=== PATIENT | female | born 1950 | race Caucasian/White ===

== ENCOUNTER 2022-05-03 14:49 | Observation (INO) | payer MEDICARE, OTHER ==
[2022-05-03] MEDS ORDERED: TYLENOL 325 MG PO ONE (15:20)
[2022-05-03] MEDS ORDERED: Hydromorphone 1 mg/ml Injection IV ONE (15:20)
[2022-05-03] MEDS ORDERED: Sodium Chloride 0.9% 1000 ML 1,000 ML IV STA (15:20)
[2022-05-03] MEDS ORDERED: Zofran 4 MG/2 ML VIAL IV ONE (15:20)
--- NOTE | 2022-05-03 15:20 | ERPHSYRPT ---
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 Triage Nursing Assessment: Pt brought to the ER by her , febrile, rates right flank pain as 5/10, diabetic, urinates all the time and denies any pain with it, denies radiation of the flank pain, fever waking her at night, tries to lay flat due to some relief, states that this is some of the worse pain she has ever had, no edema noted, pt fell during the night last night and states that she thinks she was disoriented and hit the chair and it pushed her back and she fell causing a skin tear or rug burn to her left elbow and denies hitting her h ead of having LOC, pt doesn't appear to be in any distress Timing/Duration: day(s) (4), worse Fever Severity: moderate Fever Therapy CONE FORMER: none Associated Symptoms: denies symptoms, No abdominal pain, No chest pain, No confusion Hx Tetanus, Diphtheria Vaccination/Date Given: Yes (UP TO DATE) Hx Influenza Vaccination/Date Given: Yes Hx Pneumococcal Vaccination/Date Given: Yes <ENRRIQUE PICKARD - Last Filed: 05/03/22 15:35> <CHERYL ANGELA - Last Filed: 05/03/22 16:59> - History of Present Illness Time Seen by Provider: 05/03/22 15:10 Physician History: This is a morbidly obese 72-year-old white female patient of Dr. Angela who had left arm pain and nonradiating central substernal chest pain 4 days ago. She took a nitroglycerin tablet and it resolved this pain. She has no more chest pain. On the same day, patient noticed right flank pain and that has persisted over the last 4 days. She is also had associated fevers at home. The pain in her right flank is constant. It is sharp. She has no abdominal pain. The pain improves mildly with laying flat. Patient does have a history of polycystic ovary disease. Upon entrance into the emergency department, her temperature is 101.9 F. Patient has a history of hypertension, gastroesophageal reflux disease, diabetes, hyperlipidemia, TIAs and coronary artery disease. (ENRRIQUE PICKARD) Allergies/Adverse Reactions: Penicillins Allergy (Verified 05/03/22 15:17) Home Medications: Clopidogrel Bisulfate [PLAVIX 75 MG Tablet] 75 mg PO DAILY 12/10/15 [History] Fluoxetine HCl 20 tab PO DAILY 12/10/15 [History] Paricalcitol [Zemplar] 1 mcg PO DAILY 12/10/15 [History] Spironolactone 25 tab PO BID 12/10/15 [History] Tolterodine Tartrate [Detrol LA] 4 tab PO DAILY 12/10/15 [History] Amlodipine Besylate 5 mg PO DAILY 06/10/17 [History] Aspirin [Aspirin EC] 81 mg PO DAILY 06/10/17 [History] Atorvastatin Calcium [Lipitor] 80 mg PO DAILY 06/10/17 [History] Buspirone HCl [Buspar] 10 mg PO BID 06/10/17 [History] Furosemide 20 mg [Lasix 20 mg] 20 mg PO DAILY 06/10/17 [History] Lansoprazole 30 mg PO DAILY 06/10/17 [History] Metoprolol Tartrate 50 mg PO BID 06/10/17 [History] Allopurinol 300 mg [Zyloprim 300 mg] 300 mg PO DAILY 05/03/22 [History] Ezetimibe 10 mg [Zetia 10 MG] 10 mg PO DAILY 05/03/22 [History] Gabapentin [Neurontin ] 100 mg PO DAILY 05/03/22 [History] Travel Risk - International Travel Have you traveled outside of the country in past 3 weeks: No - Coronavirus Screening Are you exhibiting any of the following symptoms?: Yes Symptoms: Fever Close contact with a COVID-19 positive Pt in past 14-21 Days: No - Vaccine Status Have you recieved a Covid-19 vaccination: Yes 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: [employer] - Vaccination Dates Date of 2cond Vaccination (if applicable): 2020 <ENRRIQUE PICKARD - Last Filed: 05/03/22 15:35> - Review of Systems Constitutional: Fever Eyes: No Symptoms Ears, Nose, & Throat: No Symptoms Respiratory: No Symptoms Cardiac: No Symptoms Abdominal/Gastrointestinal: No Symptoms Genitourinary Symptoms: Flank Pain (Right flank pain) Musculoskeletal: No Symptoms Skin: No Symptoms Neurological: No Symptoms Psychological: No Symptoms Endocrine: No Symptoms Hematologic/Lymphatic: No Symptoms Immunological/Allergic: No Symptoms All Other Systems: Reviewed and Negative <ENRRIQUE PICKARD - Last Filed: 05/03/22 15:35> - Past Medical History Pertinent Past Medical History: Yes Neurological History: TIA Cardiac History: Coronary Artery Disease, Hypertension Respiratory History: No Pertinent History Endocrine Medical History: No Pertinent History Musculoskeletal History: Osteoarthritis Other Medical History: POLCYSTIC KIDNEY DISEASE - Past Surgical History Past Surgical History: Yes Cardiac: CABG Musculoskeletal: Other Female Surgical History: Hysterectomy Other Surgical History: left/right knee replacements - Social History Smoking Status: Never smoker Exposure to second hand smoke: No Drug Use: none Patient Lives Alone: No <ENRRIQUE PICKARD - Last Filed: 05/03/22 15:35> - Physical Exam General Appearance: no apparent distress, alert, anxiety, obese Eye Exam: PERRL/EOMI, eyes nml inspection ENT Exam: normal ENT inspection, no apparent trauma, hearing grossly normal, TMs normal Neck Exam: normal inspection, non-tender, supple, full range of motion Respiratory Exam: normal breath sounds, lungs clear, no respiratory distress, no accessory muscle use, No chest non-tender, No decreased breath sounds, No respir atory distress Cardiovascular/Chest Exam: normal heart sounds, regular rate/rhythm Gastrointestinal/Abdominal Exam: soft, non tender, no distention, no mass, no guarding, no ecchymosis, no organomegaly, no pulsatile mass, normal bowel sounds Pelvic Exam: not done Rectal Exam: not done Extremity Exam: non-tender, normal range of motion, normal inspection Neurologic Exam: alert, oriented x 3, cooperative, superintendent track II-XII nml as tested, normal mood/affect, nml cerebellar function, nml station & gait, sensation nml Skin Exam: normal color, warm, dry Lymphatic: No adenopathy SpO2 Interpretation: normal SpO2: 96 O2 Delivery: Room Air <ENRRIQUE PICKARD - Last Filed: 05/03/22 15:35> - Nursing Vital Signs Nursing Vital Signs: Initial Vital Signs Temperature 101.9 F 05/03/22 14:56 Pulse Rate 82 05/03/22 14:56 Blood Pressure 133/79 05/03/22 14:56 O2 Sat by Pulse Oximetry 96 05/03/22 14:56 Pain Scale Pain Intensity 5 - Course Nursing assessment & vital signs reviewed: Yes <ENRRIQUE PICKARD - Last Filed: 05/03/22 15:35> - Radiology Exams Chest X-ray Interpretation: Reviewed by me (cardiomegaly) <CHERYL ANGELA - Last Filed: 05/03/22 16:59> Ordered Tests: Active Orders 24 hr Category Date Time Status Bedrest with BRP/BSC ROUTINE Activity 05/03/22 16:54 Ordered Code Status Order ROUTINE Care 05/03/22 16:54 Ordered EKG-ER Only STAT Care 05/03/22 15:20 Active Fall Protocol ROUTINE Care 05/03/22 16:55 Ordered IV Care Q6H Care 05/03/22 16:54 Ordered IV Insertion STAT Care 05/03/22 15:20 Active Implement Chest Pain Pathway ROUTINE Care 05/03/22 16:54 Ordered Miscellaneous Nursing Order ROUTINE Care 05/03/22 16:54 Ordered POCT Glucose Check ACHS Care 05/03/22 16:[address] in Observation ROUTINE Care 05/03/22 16:54 Ordered Shelton Hose, Apply ROUTINE Care 05/03/22 16:54 Ordered Weight,Daily 0600 Care 05/03/22 16:54 Ordered Heart-Healthy Diet Diet 05/03/22 Dinner Ordered ABDOMEN AND PELVIS W/0 CONTRAS [CT] Stat Exams 05/03/22 15:20 Completed CHEST 1 VIEW (PORTABLE) Stat Exams 05/03/22 15:21 Completed AMYLASE Stat Lab 05/03/22 15:40 Completed BLOOD CULTURE Stat Lab 05/03/22 15:40 Received CBC W DIFF Stat Lab 05/03/22 15:40 Completed CMP Stat Lab 05/03/22 15:40 Completed CULTURE,URINE Stat Lab 05/03/22 Received LIPASE Stat Lab 05/03/22 15:40 Completed LIPID PROFILE AM.LAB Lab 05/04/22 04:00 Ordered Lactic Acid Stat Lab 05/03/22 15:20 Ordered Bell Screen Stat Lab 05/03/22 15:40 Received TROPONIN Q4H Lab 05/03/22 15:30 Completed TROPONIN Q4H Lab 05/03/22 17:00 Ordered TROPONIN Q4H Lab 05/03/22 19:30 Ordered TROPONIN Q4H Lab 05/03/22 21:00 Ordered TROPONIN Q4H Lab 05/03/22 23:30 Ordered TROPONIN Q4H Lab 05/04/22 01:00 Ordered UA W/RFX CULTURE Stat Lab 05/03/22 Completed EKG Q8HX2,QAMX3,PRN RT 05/03/22 16:54 Ordered Pulse Oximetry Q4H RT 05/03/22 16:54 Ordered Medication Summary Discontinued Medications Generic Name Dose Route Start Last Admin Trade Name Freq PRN Reason Stop Dose Admin Acetaminophen 650 mg 05/03/22 15:20 05/03/22 16:26 Acetaminophen 325 Mg Tablet PO 05/03/22 15:21 650 mg STAT ONE Administration Acetaminophen Confirm 05/03/22 16:22 Acetaminophen 325 Mg Tablet Administered 05/03/22 16:23 Dose 650 mg .ROUTE .STK-MED ONE Hydromorphone HCl 0.5 mg 05/03/22 15:20 05/03/22 16:25 Hydromorphone 1 Mg/1ml Inj 1 Mg/Ml Syringe IV 05/03/22 15:21 0.5 mg STAT ONE Administration Hydromorphone HCl Confirm 05/03/22 16:22 Hydromorphone 1 Mg/1ml Inj 1 Mg/Ml Syringe Administered 05/03/22 16:23 Dose 1 mg .ROUTE .STK-MED ONE Sodium Chloride 1,000 mls @ 999 mls/hr 05/03/22 15:20 05/03/22 16:25 Sodium Chloride 0.9% 1000 Ml IV 05/03/22 16:20 999 mls/hr .Q1H1M STA Administration Ceftriaxone Sodium/Dextrose 1 g in 50 mls @ 100 mls/hr 05/03/22 16:24 05/03/22 16:29 Rocephin 1 Gm-D5w 50 Ml Bag IV 05/03/22 16:53 100 mls/hr STAT STA 100 mls/hr Administration Sodium Chloride Confirm 05/03/22 16:23 Sodium Chloride 0.9% 1000 Ml Administered 05/03/22 16:24 Dose 1,000 mls @ ud .ROUTE .STK-MED ONE Ceftriaxone Sodium/Dextrose Confirm 05/03/22 16:28 Rocephin 1 Gm-D5w 50 Ml Bag Administered 05/03/22 16:29 Dose 1 g in 50 mls @ ud IV .STK-MED ONE Ondansetron HCl 4 mg 05/03/22 15:20 05/03/22 16:26 Ondansetron Hcl 4 Mg/2 Ml Vial IV 05/03/22 15:21 4 mg STAT ONE Administration Ondansetron HCl Confirm 05/03/22 16:21 Ondansetron Hcl 4 Mg/2 Ml Vial Administered 05/03/22 16:22 Dose 4 mg .ROUTE .STK-MED ONE Lab/Rad Data: Laboratory Result Diagrams 05/03/22 15:40 05/03/22 15:40 Laboratory Results 05/03/22 05/03/22 05/03/22 Range/Units Unknown 15:40 15:40 WBC 13.0 H (4.0-10.5) x10^3/uL RBC 3.61 L (4.1-5.4) x10^6/uL Hgb 11.1 L (12.0-16.0) g/dL Hct 35.9 (35-47) % MCV 99.4 (78-100) fL MCH 30.7 (26-32) pg MCHC 30.9 L (32-36) g/dL RDW 13.8 (11.5-14.0) % Plt Count 154 (150-450) x10^3/uL MPV 11.4 H (7.5-11.0) fL Gran % 80.8 H (36.0-66.0) % Immature Gran % (Auto) 0.7 H (0.00-0.4) % Nucleat RBC Rel Count 0.0 (0.00-0.1) % Eos # (Auto) 0.02 (0-0.5) x10^3/uL Immature Gran # (Auto) 0.09 H (0.00-0.03) x10^3u/L Absolute Lymphs (auto) 0.87 L (1.0-4.6) x10^3/uL Absolute Monos (auto) 1.48 H (0.0-1.3) x10^3/uL Absolute Nucleated RBC 0.00 (0.00-0.01) x10^3u/L Lymphocytes % 6.7 L (24.0-44.0) % Monocytes % 11.4 (0.0-12.0) % Eosinophils % 0.2 (0.00-5.0) % Basophils % 0.2 (0.0-0.4) % Absolute Granulocytes 10.53 H (1.4-6.9) x10^3/uL Basophils # 0.02 (0-0.4) x10^3/uL Sodium 138 (137-145) mmol/L Potassium 4.3 (3.5-5.1) mmol/L Chloride 103 (98-107) mmol/L Carbon Dioxide 22 (22-30) mmol/L Anion Gap 16.8 H (5-15) MEQ/L BUN 58 H (7-17) mg/dL Creatinine 3.12 H (0.52-1.04) mg/dL Estimated GFR 15.6 ML/MIN Glucose 96 (74-106) mg/dL Calcium 8.5 (8.4-10.2) mg/dL Total Bilirubin 0.70 (0.2-1.3) mg/dL AST 24 (14-36) U/L ALT 17 (0-35) U/L Alkaline Phosphatase 110 (38-126) U/L Troponin I (0.000-0.034) ng/mL Serum Total Protein 6.8 (6.3-8.2) g/dL Albumin 3.8 (3.5-5.0) g/dL Amylase 37 (30-110) U/L Lipase 56 (23-300) U/L Urinalys Dipstick Clnc MAIN LAB Urine Color YELLOW (YELLOW) Urine Appearance SLIGHTLY CLOUDY A (CLEAR) Urine pH 5.5 (5-6) Ur Specific [place] 1.015 (1.005-1.025) POC Urine Protein Conf 100 A (Negative) Urine Ketones NEGATIVE (NEGATIVE) Urine Nitrite NEGATIVE (NEGATIVE) Urine Bilirubin NEGATIVE (NEGATIVE) Urine Urobilinogen 0.2 (0-1) mg/dL Urine Leukocytes LARGE A (NEGATIVE) Urine WBC (Auto) 16-25 A (0-5) /HPF Urine RBC (Auto) 6-10 A (0-2) /HPF U Epithel Cells (Auto) RARE (FEW) /HPF Urine Bacteria (Auto) RARE (NEGATIVE) /HPF Urine RBC MODERATE A (0-5) Miguel/ul Ur Culture Indicated? YES Urine Glucose NEGATIVE (NEGATIVE) mg/dL 05/03/22 Range/Units 15:30 WBC (4.0-10.5) x10^3/uL RBC (4.1-5.4) x10^6/uL Hgb (12.0-16.0) g/dL Hct (35-47) % MCV (78-100) fL MCH (26-32) pg MCHC (32-36) g/dL RDW (11.5-14.0) % Plt Count (150-450) x10^3/uL MPV (7.5-11.0) fL Gran % (36.0-66.0) % Immature Gran % (Auto) (0.00-0.4) % Nucleat RBC Rel Count (0.00-0.1) % Eos # (Auto) (0-0.5) x10^3/uL Immature Gran # (Auto) (0.00-0.03) x10^3u/L Absolute Lymphs (auto) (1.0-4.6) x10^3/uL Absolute Monos (auto) (0.0-1.3) x10^3/uL Absolute Nucleated RBC (0.00-0.01) x10^3u/L Lymphocytes % (24.0-44.0) % Monocytes % (0.0-12.0) % Eosinophils % (0.00-5.0) % Basophils % (0.0-0.4) % Absolute Granulocytes (1.4-6.9) x10^3/uL Basophils # (0-0.4) x10^3/uL Sodium (137-145) mmol/L Potassium (3.5-5.1) mmol/L Chloride (98-107) mmol/L Carbon Dioxide (22-30) mmol/L Anion Gap (5-15) MEQ/L BUN (7-17) mg/dL Creatinine (0.52-1.04) mg/dL Estimated GFR ML/MIN Glucose (74-106) mg/dL Calcium (8.4-10.2) mg/dL Total Bilirubin (0.2-1.3) mg/dL AST (14-36) U/L ALT (0-35) U/L Alkaline Phosphatase (38-126) U/L Troponin I 0.218 H* (0.000-0.034) ng/mL Serum Total Protein (6.3-8.2) g/dL Albumin (3.5-5.0) g/dL Amylase (30-110) U/L Lipase (23-300) U/L Urinalys Dipstick Clnc Urine Color (YELLOW) Urine Appearance (CLEAR) Urine pH (5-6) Ur Specific [place] (1.005-1.025) POC Urine Protein Conf (Negative) Urine Ketones (NEGATIVE) Urine Nitrite (NEGATIVE) Urine Bilirubin (NEGATIVE) Urine Urobilinogen (0-1) mg/dL Urine Leukocytes (NEGATIVE) Urine WBC (Auto) (0-5) /HPF Urine RBC (Auto) (0-2) /HPF U Epithel Cells (Auto) (FEW) /HPF Urine Bacteria (Auto) (NEGATIVE) /HPF Urine RBC (0-5) Miguel/ul Ur Culture Indicated? Urine Glucose (NEGATIVE) mg/dL - Progress Progress: unchanged Counseled pt/family regarding: lab results, diagnosis, need for follow-up, rad results <ENRRIQUE PICKARD - Last Filed: 05/03/22 15:35> - Progress Discussed with : Mariangel Will see patient in: hospital (observation) <CHERYL ANGELA - Last Filed: 05/03/22 16:59> - Progress Progress Note: 05/03/22 15:39 Patient signed out to Dr. Angela at shift change. We are changing shift at 4 PM. He will follow-up on the results of the test and make final disposition. (ENRRIQUE PICKARD) - Departure Departure Disposition: Home Critical Care Time: No <ENRRIQUE PICKARD - Last Filed: 05/03/22 15:35> - Departure Departure Disposition: Observation Critical Care Time: Yes Critical Care Time(excluding separately billable procedures): Critical 30-74 mins <CHERYL ANGELA - Last Filed: 05/03/22 16:59> - Departure Clinical Impression: Flank pain, Pyelonephritis due to Escherichia coli, Non-ST elevation [place] (NSTEMI) Fever Qualifiers: Fever type: unspecified Qualified Code(s): R50.9 - Fever, unspecified Condition: Fair Referrals: CHERYL ANGELA MD [Primary Care Provider] - Follow Up with PCP/3 days Instructions: Kidney Infection (DC) Additional Instructions: Discharge/Care Plan JUAN QUACH was seen on 05/03/22 in the Emergency Room. The patient was counseled regarding Diagnosis,Lab results, Imaging studies, need for follow up and when to return to the Emergency Room. Prescriptions given: Discharge Note I have spoken with the patient and/or caregivers. I have explained the patient's condition, diagnosis and treatment plan based on the information available to me at this time. I have answered the patient's and/or caregiver's questions and addressed any concerns. The patient and/or caregivers have as good understanding of the patient's diagnosis, condition and treatment plan as can be expected at this point. The vital signs have been stable. The patient's condition is stable and appropriate for discharge from the emergency department. The patient will pursue further outpatient evaluation with the primary care physician or other designated or consulting physician as outlined in the discharge instructions. The patient and/or caregivers are agreeable to this plan of care and follow-up instructions have been explained in detail. The patient and/or caregivers have received these instruction. The patient/and or caregivers are aware that any significant change in condition or worsening of symptoms should prompt an immediate return to this or the closest emergency department or call 911. JUAN QUACH was seen on 05/03/22 n the Emergency Room. At that time you were treated for an emergent condition, during your visit Laboratory, Radiology and/or other procedures may have been ordered. It is very important that you follow-up with your Primary Care Physician CHERYL ANGELA within the next 24-48 hours to review your Emergency Room visit and the final results of testing that was ordered. Some test results such as Urine Cultures, Blood Cultures, and other cultures if ordered will not be finalized for 24-48 hours. If you do not have a Primary Care Provider please call the medical records department at [phone] ext [phone] to obtain a copy of your results or you may sign into our patient portal to obtain these results by visiting us @ [email or web address] and completing the following steps: 1. Click on the Patient Portal link 2. Click the Patient Self Enrollment Link to complete the enrollment form and entering your 3. Once the enrollment form is completed you will receive an email with a temporary ID and password at the email address you provided. 4. Next choose a user name and password. Your user name must be at least 4 characters long and your password must be at least 4 characters long. 5. Choose a security question from the list and provide your answer to the question. If you already have signed into the Health Portal you may access your Health Care Information 13/01 by the following steps: 1. Login to our website @ [email or web address] 2. Enter your original user name and password. FAQS The [facility] Health Portal is an online tool that contains your Lab Results, Radiology Reports, Visit History, Discharge Instructions and Health Summary Lab and Radiology Results will not be available for 72 hours on the portal. The Portal is a secure site, passwords are encryted and URLs are re-written so they cannot be copied and pasted. You and authorized family members are the only ones who can access your Portal. Also there is a timeout feature that protects your information if you leave the Portal page open. If you have technical difficulty please use the Contact Us link on the page this will allow you to submit any questions you have regarding the Portal or you may contact the Medical Record Department at [phone] ext [phone]. Prescriptions: Smz/Tmp Ds Tablet [Bactrim Ds Tablet] 1 udtab PO BID #20 tablet
[2022-05-03 16:01] LABS: Absolute Neutrophil Ct (ANC) 10.53 x10^3/uL (1.4-6.9); Basophil (Absolute #) 0.02 x10^3/uL (0-0.4); Eosinophil % 0.2 % (0.00-5.0); Eosinophil (Absolute #) 0.02 x10^3/uL (0-0.5); Hematocrit 35.9 % (35-47); Hemoglobin 11.1 g/dL (12.0-16.0); Lymphocyte (Absolute #) 0.87 x10^3/uL (1.0-4.6); Lymphocytes % 6.7 % (24.0-44.0); Mean Cell Volume 99.4 fL (78-100); Mean Corpuscular Hemoglobin 30.7 pg (26-32); Mean Corpuscular Hgb Concent. 30.9 g/dL (32-36); Mean Platelet Volume 11.4 fL (7.5-11.0); Monocyte (Absolute #) 1.48 x10^3/uL (0.0-1.3); Monocytes % 11.4 % (0.0-12.0); Neutrophil % 80.8 % (36.0-66.0); Platelet Count 154 x10^3/uL (150-450); Red Blood Count 3.61 x10^6/uL (4.1-5.4); Red Cell Distribution Width 13.8 % (11.5-14.0)
[2022-05-03 16:04] LABS: Bacteria RARE /HPF (NEGATIVE); Epithelial Cells RARE /HPF (FEW)
[2022-05-03 16:06] LABS: Appearance SLIGHTLY CLOUDY (CLEAR); Bilirubin NEGATIVE (NEGATIVE); Glucose NEGATIVE (NEGATIVE); Ketones NEGATIVE (NEGATIVE); Ph 5.5 (5-6); RBC MODERATE Ery/ul (0-5); Specific Gravity 1.015 (1.005-1.025)
[2022-05-03 16:07] LABS: Dipstick done @ ? MAIN LAB; Nitrite NEGATIVE (NEGATIVE); Protein,Urine Dip 100 (Negative); Urine Cultured Indicated? YES; Urobilinogen 0.2 mg/dL (0-1)
[2022-05-03 16:10] LABS: ALBUMIN 3.8 g/dL (3.5-5.0); ANION GAP 16.8 MEQ/L (5-15); BILIRUBIN,TOTAL 0.7 mg/dL (0.2-1.3); Calcium 8.5 mg/dL (8.4-10.2); Creatinine 1 3.12 mg/dL (0.52-1.04); EST GLOMERULAR FILTRATION RATE 15.6 ML/MIN; Potassium 4.3 mmol/L (3.5-5.1); Total Protein 6.8 g/dL (6.3-8.2)
--- NOTE | 2022-05-03 16:13 | XRAY ---
Indication: Right flank pain. Fever. Multiple contiguous axial images obtained through the abdomen and pelvis without contrast using renal stone protocol. Comparison: None Lung bases demonstrate scattered fibrosis/scarring. No infiltrate or effusion. Heart borderline enlarged. Moderate size hiatal hernia with partial intrathoracic stomach. No renal calculus or evidence for obstructive uropathy in either system. Right renal hilum punctate calcification favored to be vascular in etiology. Numerous bilateral renal cysts favors polycystic kidney disease. Noncontrasted stomach and bowel loops appear nonobstructed. Scattered descending and sigmoid diverticulosis without diverticulitis. Previous appendectomy and hysterectomy reported. No free fluid/air. Liver demonstrates 1 cm and 6 mm round cysts versus hemangiomas. Gallbladder demonstrates 7 mm stone. No free fluid/air. Remaining liver, gallbladder, pancreas, spleen, adrenal glands, kidneys, ureters, and bladder are unremarkable for noncontrast exam. Moderate scattered aortoiliac calcifications without AAA. Osseous structures intact with mild/moderate degenerative changes throughout the thoracolumbar spine. Bilateral L5 spondylolysis without listhesis. No ventral or inguinal hernias. Impression: 1. Negative renal calculus or evidence for obstructive uropathy. 2. Polycystic kidney disease, hiatal hernia with partial intrathoracic stomach, colonic diverticulosis, small hepatic cysts/hemangiomas, 7 mm gallstone, arteriosclerotic disease, and chronic bony findings. 3. Remaining CT abdomen/pelvis without contrast exam is negative.
--- NOTE | 2022-05-03 16:15 | XRAY ---
Indication: Fever. Comparison: June 10, 2017. Portable chest remains clear. Heart not enlarged again with CABG. Bony thorax intact again with mild osteopenia and degenerative changes. Impression: Continued nonacute chest with chronic features.
[2022-05-03] MEDS ORDERED: Zofran 4 MG/2 ML VIAL ONE (16:21)
[2022-05-03] MEDS ORDERED: Hydromorphone 1 mg/ml Injection ONE (16:22)
[2022-05-03] MEDS ORDERED: TYLENOL 325 MG ONE (16:22)
[2022-05-03] MEDS ORDERED: Sodium Chloride 0.9% 1000 ML 1,000 ML ONE (16:23)
[2022-05-03] MEDS ORDERED: ROCEPHIN 1 Gm-D5w 50 ml Bag** 1 G/50 ML IVPB IV STA (16:24)
[2022-05-03] MEDS ORDERED: ROCEPHIN 1 Gm-D5w 50 ml Bag** 1 G/50 ML IVPB IV ONE (16:28)
[2022-05-03] MEDS ORDERED: TYLENOL 325 MG PO PRN (16:54)
[2022-05-03] MEDS ORDERED: MILK OF MAGNESIA 30 ML PO PRN (16:54)
[2022-05-03] MEDS ORDERED: Senokot-S Tablet PO PRN (16:54)
[2022-05-03] MEDS ORDERED: MAALOX ES 30 ML UNIT DOSE PO PRN (16:54)
[2022-05-03] MEDS ORDERED: Zofran 4 MG/2 ML VIAL IV PRN (16:54)
[2022-05-03 17:20] LABS: INFLUENZA A NEGATIVE (NEGATIVE); INFLUENZA B NEGATIVE (NEGATIVE); RESPIRATORY SYNCTIAL VIRUS NEGATIVE (Negative); SARS-CoV-2 Xpert Express NEGATIVE (NEGATIVE)
[2022-05-03] MEDS: Sodium Chloride 0.9% 1000 ML 1,000 ML IV SCH (18:09)
[2022-05-03] MEDS ORDERED: MEDICATION INTERVENTION MC SCH ×2 (18:30)
[2022-05-03] MEDS: MORPHINE SULFATE 2 MG INJ IV PRN (19:38)
--- NOTE | 2022-05-03 19:39 | PCM.HP ---
History of Present Illness - Chief Complaint Chief Complaint: elevated trop History of Present Illness: is a 72 year old female who had left arm pain and nonradiating central substernal chest pain 4 days ago. She took a nitroglycerin tablet and it resolved this pain. She has no more chest pain. On the same day, patient noticed right flank pain and that has persisted over the last 4 days. She is also had associated fevers at home. The pain in her right flank is constant. It is sharp. She has no abdominal pain. The pain improves mildly with laying flat. Patient does have a history of polycystic ovary disease. Upon entrance into the emergency department, her temperature is 101.9 F. Patient has a history of hypertension, gastroesophageal reflux disease, diabetes, hyperlipidemia, TIAs and coronary artery disease. - Review of Systems Constitutional: Fever, Chills, Fatigue Eyes: No Symptoms Ears, Nose, & Throat: No Symptoms Respiratory: No Cough, No Short Of Breath Cardiac: Chest Pain, No Edema, No Syncope Abdominal/Gastrointestinal: No Abdominal Pain, No Nausea, No Vomiting, No Diarrhea Genitourinary Symptoms: No Dysuria Musculoskeletal: Back Pain, No Neck Pain Skin: No Rash Neurological: No Dizziness, No Focal Weakness, No Sensory Changes Psychological: No Symptoms Endocrine: No Symptoms Hematologic/Lymphatic: No Symptoms Immunological/Allergic: No Symptoms Medications & Allergies Home Medications: Home Medication List Clopidogrel Bisulfate [PLAVIX 75 MG Tablet] 75 mg PO DAILY 12/10/15 [History Confirmed 05/03/22] Fluoxetine HCl 20 mg PO DAILY 12/10/15 [History Confirmed 05/03/22] Paricalcitol [Zemplar] 1 mcg PO DAILY 12/10/15 [History Confirmed 05/03/22] Spironolactone 25 mg PO BID 12/10/15 [History Confirmed 05/03/22] Tolterodine Tartrate [Detrol LA] 4 mg PO DAILY 12/10/15 [History Confirmed 05/03/22] Amlodipine Besylate 5 mg PO DAILY 06/10/17 [History Confirmed 05/03/22] Aspirin [Aspirin EC] 81 mg PO DAILY 06/10/17 [History Confirmed 05/03/22] Atorvastatin Calcium [Lipitor] 80 mg PO DAILY 06/10/17 [History Confirmed 05/03/22] Furosemide 20 mg [Lasix 20 mg] 20 mg PO DAILY 06/10/17 [History Confirmed 05/03/22] Lansoprazole 30 mg PO DAILY 06/10/17 [History Confirmed 05/03/22] Allopurinol 300 mg [Zyloprim 300 mg] 300 mg PO DAILY 05/03/22 [History Confirmed 05/03/22] Ezetimibe 10 mg [Zetia 10 MG] 10 mg PO HS 05/03/22 [History Confirmed 05/03/22] Gabapentin [Neurontin ] 100 mg PO DAILY 05/03/22 [History Confirmed 05/03/22] Metoprolol Tartrate 25 mg [Lopressor 25MG Tab] 25 mg PO BID 05/03/22 [History Confirmed 05/03/22] Allergies/Adverse Reactions: Allergies Allergy/AdvReac Type Severity Reaction Status Date / Time Penicillins Allergy Verified 05/03/22 15:17 - Past Medical History Past Medical History: Yes Neurological History: TIA Cardiac History: Coronary Artery Disease, Hypertension Respiratory History: No Pertinent History Endocrine Medical History: No Pertinent History Musculoskelatal History: Osteoarthritis Comment: POLCYSTIC KIDNEY DISEASE - Female History Are you now?: No - Past Surgical History Past Surgical History: Yes Cardiac History: CABG Musculskeletal Surgical Hx: Other Female Surgical History: Hysterectomy Other Surgical History: left/right knee replacements - Social History Smoking Status: Never smoker Exposure to second hand smoke: No Alcohol: None Drug Use: none - Physical Exam Vital Signs: Vital Signs - 24 hr Temp Pulse Resp BP Pulse Ox 05/03/22 17:47 99.4 F 72 16 139/66 97 05/03/22 17:00 99.2 F 05/03/22 16:57 79 16 97 05/03/22 15:40 96 05/03/22 14:56 101.9 F 82 133/79 96 General Appearance: no apparent distress, alert Neurologic Exam: alert, oriented x 3, cooperative, normal mood/affect, nml cerebellar function, nml station & gait, sensation nml, No motor deficits Eye Exam: PERRL/EOMI, eyes nml inspection Ears, Nose, Throat Exam: normal ENT inspection, TMs normal, pharynx normal, moist mucous membranes Neck Exam: normal inspection, non-tender, supple, full range of motion Respiratory Exam: diminished breath sounds, No respiratory distress Cardiovascular Exam: regular rate/rhythm, normal heart sounds, normal peripheral pulses Gastrointestinal/Abdomen Exam: soft, normal bowel sounds, No tenderness, No mass Back Exam: normal inspection, normal range of motion, No CVA tenderness, No vertebral tenderness Extremity Exam: normal inspection, normal range of motion, pelvis stable Skin Exam: normal color, warm, dry, No rash Lymphatic Exam: No adenopathy Results - Labs Lab/Micro Results: Lab Results-Last 24 Hours 05/03/22 05/03/22 05/03/22 Range/Units 15:30 15:40 15:40 WBC 13.0 H (4.0-10.5) x10^3/uL RBC 3.61 L (4.1-5.4) x10^6/uL Hgb 11.1 L (12.0-16.0) g/dL Hct 35.9 (35-47) % MCV 99.4 (78-100) fL MCH 30.7 (26-32) pg MCHC 30.9 L (32-36) g/dL RDW 13.8 (11.5-14.0) % Plt Count 154 (150-450) x10^3/uL MPV 11.4 H (7.5-11.0) fL Gran % 80.8 H (36.0-66.0) % Immature Gran % (Auto) 0.7 H (0.00-0.4) % Nucleat RBC Rel Count 0.0 (0.00-0.1) % Eos # (Auto) 0.02 (0-0.5) x10^3/uL Immature Gran # (Auto) 0.09 H (0.00-0.03) x10^3u/L Absolute Lymphs (auto) 0.87 L (1.0-4.6) x10^3/uL Absolute Monos (auto) 1.48 H (0.0-1.3) x10^3/uL Absolute Nucleated RBC 0.00 (0.00-0.01) x10^3u/L Lymphocytes % 6.7 L (24.0-44.0) % Monocytes % 11.4 (0.0-12.0) % Eosinophils % 0.2 (0.00-5.0) % Basophils % 0.2 (0.0-0.4) % Absolute Granulocytes 10.53 H (1.4-6.9) x10^3/uL Basophils # 0.02 (0-0.4) x10^3/uL Sodium 138 (137-145) mmol/L Potassium 4.3 (3.5-5.1) mmol/L Chloride 103 (98-107) mmol/L Carbon Dioxide 22 (22-30) mmol/L Anion Gap 16.8 H (5-15) MEQ/L BUN 58 H (7-17) mg/dL Creatinine 3.12 H (0.52-1.04) mg/dL Estimated GFR 15.6 ML/MIN Glucose 96 (74-106) mg/dL Calcium 8.5 (8.4-10.2) mg/dL Total Bilirubin 0.70 (0.2-1.3) mg/dL AST 24 (14-36) U/L ALT 17 (0-35) U/L Alkaline Phosphatase 110 (38-126) U/L Troponin I 0.218 H* (0.000-0.034) ng/mL Serum Total Protein 6.8 (6.3-8.2) g/dL Albumin 3.8 (3.5-5.0) g/dL Amylase 37 (30-110) U/L Lipase 56 (23-300) U/L Urinalys Dipstick Clnc Urine Color (YELLOW) Urine Appearance (CLEAR) Urine pH (5-6) Ur Specific [place] (1.005-1.025) POC Urine Protein Conf (Negative) Urine Ketones (NEGATIVE) Urine Nitrite (NEGATIVE) Urine Bilirubin (NEGATIVE) Urine Urobilinogen (0-1) mg/dL Urine Leukocytes (NEGATIVE) Urine WBC (Auto) (0-5) /HPF Urine RBC (Auto) (0-2) /HPF U Epithel Cells (Auto) (FEW) /HPF Urine Bacteria (Auto) (NEGATIVE) /HPF Urine RBC (0-5) Miguel/ul Ur Culture Indicated? Urine Glucose (NEGATIVE) mg/dL Monoscreen (Negative) Influenza Type A Ag (NEGATIVE) Influenza Type B Ag (NEGATIVE) RSV (PCR) (Negative) SARS-CoV-2 (PCR) (NEGATIVE) 05/03/22 05/03/22 05/03/22 Range/Units 15:40 15:40 Unknown WBC (4.0-10.5) x10^3/uL RBC (4.1-5.4) x10^6/uL Hgb (12.0-16.0) g/dL Hct (35-47) % MCV (78-100) fL MCH (26-32) pg MCHC (32-36) g/dL RDW (11.5-14.0) % Plt Count (150-450) x10^3/uL MPV (7.5-11.0) fL Gran % (36.0-66.0) % Immature Gran % (Auto) (0.00-0.4) % Nucleat RBC Rel Count (0.00-0.1) % Eos # (Auto) (0-0.5) x10^3/uL Immature Gran # (Auto) (0.00-0.03) x10^3u/L Absolute Lymphs (auto) (1.0-4.6) x10^3/uL Absolute Monos (auto) (0.0-1.3) x10^3/uL Absolute Nucleated RBC (0.00-0.01) x10^3u/L Lymphocytes % (24.0-44.0) % Monocytes % (0.0-12.0) % Eosinophils % (0.00-5.0) % Basophils % (0.0-0.4) % Absolute Granulocytes (1.4-6.9) x10^3/uL Basophils # (0-0.4) x10^3/uL Sodium (137-145) mmol/L Potassium (3.5-5.1) mmol/L Chloride (98-107) mmol/L Carbon Dioxide (22-30) mmol/L Anion Gap (5-15) MEQ/L BUN (7-17) mg/dL Creatinine (0.52-1.04) mg/dL Estimated GFR ML/MIN Glucose (74-106) mg/dL Calcium (8.4-10.2) mg/dL Total Bilirubin (0.2-1.3) mg/dL AST (14-36) U/L ALT (0-35) U/L Alkaline Phosphatase (38-126) U/L Troponin I (0.000-0.034) ng/mL Serum Total Protein (6.3-8.2) g/dL Albumin (3.5-5.0) g/dL Amylase (30-110) U/L Lipase (23-300) U/L Urinalys Dipstick Clnc MAIN LAB Urine Color YELLOW (YELLOW) Urine Appearance SLIGHTLY CLOUDY A (CLEAR) Urine pH 5.5 (5-6) Ur Specific [place] 1.015 (1.005-1.025) POC Urine Protein Conf 100 A (Negative) Urine Ketones NEGATIVE (NEGATIVE) Urine Nitrite NEGATIVE (NEGATIVE) Urine Bilirubin NEGATIVE (NEGATIVE) Urine Urobilinogen 0.2 (0-1) mg/dL Urine Leukocytes LARGE A (NEGATIVE) Urine WBC (Auto) 16-25 A (0-5) /HPF Urine RBC (Auto) 6-10 A (0-2) /HPF U Epithel Cells (Auto) RARE (FEW) /HPF Urine Bacteria (Auto) RARE (NEGATIVE) /HPF Urine RBC MODERATE A (0-5) Miguel/ul Ur Culture Indicated? YES Urine Glucose NEGATIVE (NEGATIVE) mg/dL Monoscreen NEGATIVE (Negative) Influenza Type A Ag NEGATIVE (NEGATIVE) Influenza Type B Ag NEGATIVE (NEGATIVE) RSV (PCR) NEGATIVE (Negative) SARS-CoV-2 (PCR) NEGATIVE (NEGATIVE) - Radiology Impressions Radiology Exams & Impressions: Radiology Procedures Category Date Time Status ABDOMEN AND PELVIS W/0 CONTRAS [CT] Stat Exams 05/03/22 15:20 Completed CHEST 1 VIEW (PORTABLE) Stat Exams 05/03/22 15:21 Completed - Other Procedures and Tests Respiratory Therapy 05/03/22 23:20 EKG ONCE 05/04/22 05:00 EKG ONCE 05/05/22 05:00 EKG ONCE 05/06/22 05:00 EKG ONCE Assessment/Plan (1) Non-ST elevation OR (NSTEMI) Current Visit: Yes Status: Acute Assessment & Plan: Chief Complaint Diagnosis elevated trop Allergies Allergy/AdvReac Type Severity Reaction Status Date / Time Penicillins Allergy Verified 05/03/22 15:17 Vital Signs (Last 24 hours) Temp Pulse Resp BP Pulse Ox 05/03/22 17:47 99.4 F 72 16 139/66 97 05/03/22 17:00 99.2 F 05/03/22 16:57 79 16 97 05/03/22 15:40 96 05/03/22 14:56 101.9 F 82 133/79 96 Home Medications Medication Instructions Recorded Confirmed Last Taken Type Allopurinol 300 mg [Zyloprim 300 mg PO DAILY 05/03/22 05/03/22 05/03/22 08:00 History 300 mg] Ezetimibe 10 mg [Zetia 10 MG] 10 mg PO HS 05/03/22 05/03/22 05/02/22 20:00 History Gabapentin [Neurontin ] 100 mg PO DAILY 05/03/22 05/03/22 05/03/22 08:00 History Metoprolol Tartrate 25 mg 25 mg PO BID 05/03/22 05/03/22 05/03/22 08:00 History [Lopressor 25MG Tab] Current Medications Generic Name Dose Route Start Last Admin Trade Name Freq PRN Reason Stop Dose Admin Acetaminophen 650 mg 05/03/22 16:54 Acetaminophen 325 Mg Tablet PO 06/02/22 16:53 Q4H PRN PRN PAIN AND/OR FEVER Al Hydrox/Mg Hydrox/Simethicone 30 ml 05/03/22 16:54 Mag Hydrox/Al Hydrox/Simeth 30 Ml Udcup PO 06/02/22 16:53 Q4H PRN PRN INDIGESTION Allopurinol 300 mg 05/04/22 10:00 Allopurinol 300 Mg Tablet PO 06/03/22 09:59 DAILY [facility] Amlodipine Besylate 5 mg 05/04/22 10:00 Amlodipine Besylate 5 Mg Tablet PO 06/03/22 09:59 DAILY [facility] Aspirin 81 mg 05/04/22 10:00 Aspirin 81 Mg Tablet.Ec PO 06/03/22 09:59 DAILY [facility] Clopidogrel Bisulfate 75 mg 05/04/22 10:00 Clopidogrel Bisulfate 75 Mg Tablet PO 06/03/22 09:59 DAILY [facility] Ezetimibe 10 mg 05/03/22 22:00 Ezetimibe 10 Mg Tab PO 06/02/22 21:59 HS [facility] Enoxaparin Sodium 30 mg 05/04/22 10:00 Enoxaparin Sodium 30 Mg/0.3 Ml Syringe SQ 06/03/22 09:59 DAILY [facility] Fluoxetine HCl 20 mg 05/04/22 10:00 Fluoxetine Hcl 20 Mg Cap PO 06/03/22 09:59 DAILY STEPHANIE Furosemide 20 mg 05/04/22 10:00 Furosemide 20 Mg Tablet PO 06/03/22 09:59 DAILY STEPHANIE Gabapentin 100 mg 05/04/22 10:00 Gabapentin 100 Mg Capsule PO 06/03/22 09:59 DAILY [facility] Sodium Chloride 1,000 mls @ 30 mls/hr 05/03/22 18:15 05/03/22 18:09 Sodium Chloride 0.9% 1000 Ml IV 06/02/22 18:14 30 mls/hr .Q24H STEPHANIE Administration Magnesium Hydroxide 30 - 60 ml 05/03/22 16:54 Magnesium Hydroxide 30 Ml Udcup PO 06/02/22 16:53 QDP PRN CONSTIPATION Metoprolol Tartrate 25 mg 05/03/22 22:00 Metoprolol Tartrate 25 Mg Tab PO 06/02/22 21:59 BID STEPHANIE Miscellaneous Information 1 each 05/03/22 18:30 Medication Intervention 1 Each Each 06/02/22 18:29 .RN TO CHECK [facility] Miscellaneous Information 1 each 05/03/22 18:30 Medication Intervention 1 Each Each 06/02/22 18:29 .RN TO CHECK STEPHANIE Morphine Sulfate 2 mg 05/03/22 16:54 Morphine Sulfate 2 Mg/Ml Inj IV 05/08/22 16:53 .Q15MIN PRN PRN PAIN Ondansetron HCl 4 mg 05/03/22 16:54 Ondansetron Hcl 4 Mg/2 Ml Vial IV 06/02/22 16:53 Q4H PRN PRN NAUSEA/VOMITING Pantoprazole Sodium 40 mg 05/04/22 10:00 Protonix (Pantoprazole) 40 Mg Tablet PO 06/03/22 09:59 DAILY [facility] Senna/Docusate Sodium 2 udtab 05/03/22 16:54 Senna/Docusate Sodium 1 Udtab Tablet PO 06/02/22 16:53 BID PRN PRN CONSTIPATION Simvastatin 40 mg 05/04/22 10:00 Simvastatin 20 Mg Tablet PO 06/03/22 09:59 DAILY STEPHANIE Spironolactone 25 mg 05/03/22 22:00 Spironolactone 25 Mg Tablet PO 06/02/22 21:59 BID [facility] Discontinued Medications Generic Name Dose Route Start Last Admin Trade Name Freq PRN Reason Stop Dose Admin Acetaminophen 650 mg 05/03/22 15:20 05/03/22 16:26 Acetaminophen 325 Mg Tablet PO 05/03/22 15:21 650 mg STAT ONE Administration Acetaminophen Confirm 05/03/22 16:22 Acetaminophen 325 Mg Tablet Administered 05/03/22 16:23 Dose 650 mg .ROUTE .STK-MED ONE Enoxaparin Sodium 40 mg 05/04/22 10:00 Enoxaparin Sodium 40 Mg/0.4 Ml Syringe SQ 06/03/22 09:59 DAILY STEPHANIE Hydromorphone HCl 0.5 mg 05/03/22 15:20 05/03/22 16:25 Hydromorphone 1 Mg/1ml Inj 1 Mg/Ml Syringe IV 05/03/22 15:21 0.5 mg STAT ONE Administration Hydromorphone HCl Confirm 05/03/22 16:22 Hydromorphone 1 Mg/1ml Inj 1 Mg/Ml Syringe Administered 05/03/22 16:23 Dose 1 mg .ROUTE .STK-MED ONE Sodium Chloride 1,000 mls @ 999 mls/hr 05/03/22 15:20 05/03/22 17:37 Sodium Chloride 0.9% 1000 Ml IV 05/03/22 16:20 Infused .Q1H1M STA Infusion Ceftriaxone Sodium/Dextrose 1 g in 50 mls @ 100 mls/hr 05/03/22 16:24 05/03/22 17:04 Rocephin 1 Gm-D5w 50 Ml Bag IV 05/03/22 16:53 Infused STAT STA Infusion Sodium Chloride Confirm 05/03/22 16:23 Sodium Chloride 0.9% 1000 Ml Administered 05/03/22 16:24 Dose 1,000 mls @ ud .ROUTE .STK-MED ONE Ceftriaxone Sodium/Dextrose Confirm 05/03/22 16:28 Rocephin 1 Gm-D5w 50 Ml Bag Administered 05/03/22 16:29 Dose 1 g in 50 mls @ ud IV .STK-MED ONE Ondansetron HCl 4 mg 05/03/22 15:20 05/03/22 16:26 Ondansetron Hcl 4 Mg/2 Ml Vial IV 05/03/22 15:21 4 mg STAT ONE Administration Ondansetron HCl Confirm 05/03/22 16:21 Ondansetron Hcl 4 Mg/2 Ml Vial Administered 05/03/22 16:22 Dose 4 mg .ROUTE .STK-MED ONE Intake & Output (Last 24 hours) 05/01/22 05/02/22 05/03/22 05/04/22 11:59 11:59 11:59 11:59 Intake Total 240 Balance 240 Weight 92.4 kg Microbiology Results (Last 24 hours) 05/03/22 Unknown Clean Catch Midstream Urine Culture - Pending 05/03/22 15:40 Blood Blood Culture Gram Stain - Pending 05/03/22 15:40 Blood Blood Culture - Pending 05/03/22 15:47 Blood Blood Culture Gram Stain - Pending 05/03/22 15:47 Blood Blood Culture - Pending Laboratory Results (Last 24 hours) 05/03/22 05/03/22 05/03/22 Unknown 15:40 15:40 WBC RBC Hgb Hct MCV MCH MCHC RDW Plt Count MPV Gran % Immature Gran % (Auto) Nucleat RBC Rel Count Eos # (Auto) Immature Gran # (Auto) Absolute Lymphs (auto) Absolute Monos (auto) Absolute Nucleated RBC Lymphocytes % Monocytes % Eosinophils % Basophils % Absolute Granulocytes Basophils # Sodium Potassium Chloride Carbon Dioxide Anion Gap BUN Creatinine Estimated GFR Glucose Calcium Total Bilirubin AST ALT Alkaline Phosphatase Troponin I Serum Total Protein Albumin Amylase Lipase Urinalys Dipstick Clnc MAIN LAB Urine Color YELLOW Urine Appearance SLIGHTLY CLOUDY A Urine pH 5.5 Ur Specific [place] 1.015 POC Urine Protein Conf 100 A Urine Ketones NEGATIVE Urine Nitrite NEGATIVE Urine Bilirubin NEGATIVE Urine Urobilinogen 0.2 Urine Leukocytes LARGE A Urine WBC (Auto) 16-25 A Urine RBC (Auto) 6-10 A U Epithel Cells (Auto) RARE Urine Bacteria (Auto) RARE Urine RBC MODERATE A Ur Culture Indicated? YES Urine Glucose NEGATIVE Monoscreen NEGATIVE Influenza Type A Ag NEGATIVE Influenza Type B Ag NEGATIVE RSV (PCR) NEGATIVE SARS-CoV-2 (PCR) NEGATIVE 05/03/22 05/03/22 05/03/22 15:40 15:40 15:30 WBC 13.0 H RBC 3.61 L Hgb 11.1 L Hct 35.9 MCV 99.4 MCH 30.7 MCHC 30.9 L RDW 13.8 Plt Count 154 MPV 11.4 H Gran % 80.8 H Immature Gran % (Auto) 0.7 H Nucleat RBC Rel Count 0.0 Eos # (Auto) 0.02 Immature Gran # (Auto) 0.09 H Absolute Lymphs (auto) 0.87 L Absolute Monos (auto) 1.48 H Absolute Nucleated RBC 0.00 Lymphocytes % 6.7 L Monocytes % 11.4 Eosinophils % 0.2 Basophils % 0.2 Absolute Granulocytes 10.53 H Basophils # 0.02 Sodium 138 Potassium 4.3 Chloride 103 Carbon Dioxide 22 Anion Gap 16.8 H BUN 58 H Creatinine 3.12 H Estimated GFR 15.6 Glucose 96 Calcium 8.5 Total Bilirubin 0.70 AST 24 ALT 17 Alkaline Phosphatase 110 Troponin I 0.218 H* Serum Total Protein 6.8 Albumin 3.8 Amylase 37 Lipase 56 Urinalys Dipstick Clnc Urine Color Urine Appearance Urine pH Ur Specific [place] POC Urine Protein Conf Urine Ketones Urine Nitrite Urine Bilirubin Urine Urobilinogen Urine Leukocytes Urine WBC (Auto) Urine RBC (Auto) U Epithel Cells (Auto) Urine Bacteria (Auto) Urine RBC Ur Culture Indicated? Urine Glucose Monoscreen Influenza Type A Ag Influenza Type B Ag RSV (PCR) SARS-CoV-2 (PCR) Orders (Last 24 hours) Category Date Time Status Bedrest with BRP/BSC ROUTINE Activity 05/03/22 16:54 Active Code Status Order ROUTINE Care 05/03/22 16:54 Active Fall Protocol Q1H Care 05/03/22 16:55 Active IV Care Q6H Care 05/03/22 16:54 Active IV Insertion STAT Care 05/03/22 15:20 Completed Implement Chest Pain Pathway ROUTINE Care 05/03/22 16:54 Active Miscellaneous Nursing Order ROUTINE Care 05/03/22 16:[address] in Observation ROUTINE Care 05/03/22 16:54 Active Eddie Lamar ROUTINE Care 05/03/22 16:54 Active Telemetry q6h Care 05/03/22 17:40 Active Weight,Daily 0600 Care 05/03/22 16:54 Active Heart-Healthy Diet Diet 05/03/22 Dinner Active ABDOMEN AND PELVIS W/0 CONTRAS [CT] Stat Exams 05/03/22 15:20 Completed CHEST 1 VIEW (PORTABLE) Stat Exams 05/03/22 15:21 Completed AMYLASE Stat Lab 05/03/22 15:40 Completed BLOOD CULTURE Stat Lab 05/03/22 15:40 Received CBC W DIFF Stat Lab 05/03/22 15:40 Completed CMP Stat Lab 05/03/22 15:40 Completed COVID/FLU/RSV Panel Stat Lab 05/03/22 15:40 Completed CULTURE,URINE Stat Lab 05/03/22 Received HEMOGLOBIN A1C Urgent Lab 05/03/22 15:20 Received LIPASE Stat Lab 05/03/22 15:40 Completed LIPID PROFILE AM.LAB Lab 05/04/22 04:00 Ordered Tama Screen Stat Lab 05/03/22 15:40 Completed TROPONIN Q4H Lab 05/03/22 15:30 Completed TROPONIN Q4H Lab 05/03/22 19:30 Ordered TROPONIN Q4H Lab 05/03/22 23:30 Ordered TROPONIN Q4H Lab 05/04/22 01:00 Ordered UA W/RFX CULTURE Stat Lab 05/03/22 Completed Acetaminophen 325 mg [Tylenol 325 mg] Med 05/03/22 16:22 Discontinued 650 mg .ROUTE .STK-MED ONE Acetaminophen 325 mg [Tylenol 325 mg] Med 05/03/22 16:54 Active 650 mg PO Q4H PRN PRN Acetaminophen 325 mg [Tylenol 325 mg] Med 05/03/22 15:20 Discontinued 650 mg PO STAT ONE Allopurinol 300 mg [Zyloprim 300 mg] Med 05/04/22 10:00 Active 300 mg PO DAILY Amlodipine Besylate 5 mg [Norvasc 5 mg] Med 05/04/22 10:00 Active 5 mg PO DAILY Aspirin EC 81 mg [Ecotrin 81 mg] Med 05/04/22 10:00 Active 81 mg PO DAILY Ceftriaxone 1 GM/50 ML PREMIX* [ROCEPHIN 1 Gm-D5w 50 ml Med 05/03/22 16:24 Discontinued Bag] 1 g in 50 ml IV STAT Ceftriaxone 1 GM/50 ML PREMIX* [ROCEPHIN 1 Gm-D5w 50 ml Med 05/03/22 16:28 Discontinued Bag] 1 g in 50 ml IV UD Clopidogrel Bisulfate [PLAVIX Tablet] Med 05/04/22 10:00 Active 75 mg PO DAILY Enoxaparin Sodium [Enoxaparin Sodium] Med 05/04/22 10:00 Active 30 mg SQ DAILY Enoxaparin Sodium [Enoxaparin Sodium] Med 05/04/22 10:00 Discontinued 40 mg SQ DAILY Ezetimibe 10 mg [Zetia 10 MG] Med 05/03/22 22:00 Active 10 mg PO HS Fluoxetine HCl 20 mg [Prozac 20 MG] Med 05/04/22 10:00 Active 20 mg PO DAILY Furosemide 20 mg [Lasix 20 mg] Med 05/04/22 10:00 Active 20 mg PO DAILY Gabapentin [Neurontin ] Med 05/04/22 10:00 Active 100 mg PO DAILY Hydromorphone 1 mg/1Ml Inj [Hydromorphone 1 mg/ml Med 05/03/22 15:20 Discontinued Injection] 0.5 mg IV STAT ONE Hydromorphone 1 mg/1Ml Inj [Hydromorphone 1 mg/ml Med 05/03/22 16:22 Discontinued Injection] 1 mg .ROUTE .STK-MED ONE Mag Hydrox/Al Hydrox/Simeth [Maalox Es 30 ml Unit Med 05/03/22 16:54 Active Dose] 30 ml PO Q4H PRN PRN Magnesium Hydroxide 30 ml [Milk of Magnesia 30 ml Med 05/03/22 16:54 Active ] 30 - 60 ml PO QDP PRN Medication Intervention Med 05/03/22 18:30 Active 1 each MC .RN TO CHECK Medication Intervention Med 05/03/22 18:30 Active 1 each MC .RN TO CHECK Metoprolol Tartrate 25 mg [Lopressor 25MG Tab] Med 05/03/22 22:00 Active 25 mg PO BID Morphine Sulfate 2 mg Inj Med 05/03/22 16:54 Active 2 mg IV .Q15MIN PRN PRN NaCl 0.9% 1000 ml [Sodium Chloride 0.9% 1000 ML] 1,000 Med 05/03/22 16:23 Discontinued ml .ROUTE UD NaCl 0.9% 1000 ml [Sodium Chloride 0.9% 1000 ML] 1,000 Med 05/03/22 18:15 Active ml IV 30 mls/hr NaCl 0.9% 1000 ml [Sodium Chloride 0.9% 1000 ML] 1,000 Med 05/03/22 15:20 Discontinued ml IV 999 mls/hr Ondansetron HCl 4 mg/2 ml [Zofran 4 MG/2 ML VIAL] Med 05/03/22 16:21 Discontinued 4 mg .ROUTE .STK-MED ONE Ondansetron HCl 4 mg/2 ml [Zofran 4 MG/2 ML VIAL] Med 05/03/22 16:54 Active 4 mg IV Q4H PRN PRN Ondansetron HCl 4 mg/2 ml [Zofran 4 MG/2 ML VIAL] Med 05/03/22 15:20 Discontinued 4 mg IV STAT ONE PANTOPRAZOLE 40 mg Tablet [Protonix 40MG Tablet] Med 05/04/22 10:00 Active 40 mg PO DAILY Senna/Docusate Sodium Tab [Senokot-S Tablet] Med 05/03/22 16:54 Active 2 udtab PO BID PRN PRN Simvastatin 20Mg [Zocor 20Mg] Med 05/04/22 10:00 Active 40 mg PO DAILY Spironolactone 25 mg [Aldactone 25 MG] Med 05/03/22 22:00 Active 25 mg PO BID EKG ONCE RT 05/03/22 23:20 Active EKG ONCE RT 05/04/22 05:00 Active EKG ONCE RT 05/05/22 05:00 Active EKG ONCE RT 05/06/22 05:00 Active EKG Q8HX2,QAMX3,PRN RT 05/03/22 16:54 Completed Code(s): I21.4 - NON-ST ELEVATION (NSTEMI) MYOCARDIAL INFARCTION (2) Pyelonephritis due to Escherichia coli Current Visit: Yes Status: Acute Assessment & Plan: Last Vital Signs Temp 99.4 F 05/03/22 17:47 Pulse 72 05/03/22 17:47 Resp 16 05/03/22 17:47 BP 139/66 05/03/22 17:47 Pulse Ox 97 05/03/22 17:47 Allergies Penicillins Allergy (Verified 05/03/22 15:17) Active Medications Acetaminophen (Acetaminophen 325 Mg Tablet) 650 mg PO Q4H PRN PRN PRN Reason: PAIN AND/OR FEVER Stop: 06/02/22 16:53 Al Hydrox/Mg Hydrox/Simethicone (Mag Hydrox/Al Hydrox/Simeth 30 Ml Udcup) 30 ml PO Q4H PRN PRN PRN Reason: INDIGESTION Stop: 06/02/22 16:53 Allopurinol (Allopurinol 300 Mg Tablet) 300 mg PO DAILY STEPHANIE Stop: 06/03/22 09:59 Amlodipine Besylate (Amlodipine Besylate 5 Mg Tablet) 5 mg PO DAILY STEPHANIE Stop: 06/03/22 09:59 Aspirin (Aspirin 81 Mg Tablet.Ec) 81 mg PO DAILY STEPHANIE Stop: 06/03/22 09:59 Clopidogrel Bisulfate (Clopidogrel Bisulfate 75 Mg Tablet) 75 mg PO DAILY STEPHANIE Stop: 06/03/22 09:59 Ezetimibe (Ezetimibe 10 Mg Tab) 10 mg PO HS STEPHANIE Stop: 06/02/22 21:59 Enoxaparin Sodium (Enoxaparin Sodium 30 Mg/0.3 Ml Syringe) 30 mg SQ DAILY STEPHANIE Stop: 06/03/22 09:59 Fluoxetine HCl (Fluoxetine Hcl 20 Mg Cap) 20 mg PO DAILY STEPHANIE Stop: 06/03/22 09:59 Furosemide (Furosemide 20 Mg Tablet) 20 mg PO DAILY STEPHANIE Stop: 06/03/22 09:59 Gabapentin (Gabapentin 100 Mg Capsule) 100 mg PO DAILY STEPHANIE Stop: 06/03/22 09:59 Sodium Chloride (Sodium Chloride 0.9% 1000 Ml) 1,000 mls @ 30 mls/hr IV .Q24H STEPHANIE Stop: 06/02/22 18:14 Last Admin: 05/03/22 18:09 Dose: 30 mls/hr Magnesium Hydroxide (Magnesium Hydroxide 30 Ml Udcup) 30 - 60 ml PO QDP PRN PRN Reason: CONSTIPATION Stop: 06/02/22 16:53 Metoprolol Tartrate (Metoprolol Tartrate 25 Mg Tab) 25 mg PO BID STEPHANIE Stop: 06/02/22 21:59 Miscellaneous Information (Medication Intervention 1 Each Each) 1 each MC .RN TO CHECK STEPHANIE Stop: 06/02/22 18:29 Miscellaneous Information (Medication Intervention 1 Each Each) 1 each MC .RN TO CHECK STEPHANIE Stop: 06/02/22 18:29 Morphine Sulfate (Morphine Sulfate 2 Mg/Ml Inj) 2 mg IV .Q15MIN PRN PRN PRN Reason: PAIN Stop: 05/08/22 16:53 Last Admin: 05/03/22 19:38 Dose: 2 mg Ondansetron HCl (Ondansetron Hcl 4 Mg/2 Ml Vial) 4 mg IV Q4H PRN PRN PRN Reason: NAUSEA/VOMITING Stop: 06/02/22 16:53 Pantoprazole Sodium (Protonix (Pantoprazole) 40 Mg Tablet) 40 mg PO DAILY STEPHANIE Stop: 06/03/22 09:59 Senna/Docusate Sodium (Senna/Docusate Sodium 1 Udtab Tablet) 2 udtab PO BID PRN PRN PRN Reason: CONSTIPATION Stop: 06/02/22 16:53 Simvastatin (Simvastatin 20 Mg Tablet) 40 mg PO DAILY STEPHANIE Stop: 06/03/22 09:59 Spironolactone (Spironolactone 25 Mg Tablet) 25 mg PO BID STEPHANIE Stop: 06/02/22 21:59 Intake & Output 05/03/22 05/04/22 11:59 11:59 Intake Total 240 Balance 240 Weight 92.4 kg Orders 05/03/22 15:20 HEMOGLOBIN A1C Urgent 05/03/22 Dinner Heart-Healthy Diet 05/03/22 16:54 Bedrest with BRP/BSC ROUTINE Code Status Order ROUTINE IV Care Q6H Implement Chest Pain Pathway ROUTINE Place in Observation ROUTINE Shelton Blandon, Apply ROUTINE Weight,Daily 0600 Acetaminophen 325 mg [Tylenol 325 mg] 650 mg PO Q4H PRN PRN Mag Hydrox/Al Hydrox/Simeth [Maalox Es 30 ml Unit Dose] 30 ml PO Q4H PRN PRN Magnesium Hydroxide 30 ml [Milk of Magnesia 30 ml] 30 - 60 ml PO QDP PRN Morphine Sulfate 2 mg Inj 2 mg IV .Q15MIN PRN PRN Ondansetron HCl 4 mg/2 ml [Zofran 4 MG/2 ML VIAL] 4 mg IV Q4H PRN PRN Senna/Docusate Sodium Tab [Senokot-S Tablet] 2 udtab PO BID PRN PRN 05/03/22 16:55 Fall Protocol Q1H 05/03/22 17:40 Telemetry q6h 05/03/22 18:15 NaCl 0.9% 1000 ml [Sodium Chloride 0.9% 1000 ML] 1,000 ml IV 30 mls/hr 05/03/22 18:30 Medication Intervention 1 each MC .RN TO CHECK Medication Intervention 1 each MC .RN TO CHECK 05/03/22 22:00 Ezetimibe 10 mg [Zetia 10 MG] 10 mg PO HS Metoprolol Tartrate 25 mg [Lopressor 25MG Tab] 25 mg PO BID Spironolactone 25 mg [Aldactone 25 MG] 25 mg PO BID 05/03/22 23:20 EKG ONCE 05/04/22 01:00 TROPONIN Q4H 05/04/22 04:00 LIPID PROFILE AM.LAB 05/04/22 05:00 EKG ONCE 05/04/22 10:00 Allopurinol 300 mg [Zyloprim 300 mg] 300 mg PO DAILY Amlodipine Besylate 5 mg [Norvasc 5 mg] 5 mg PO DAILY Aspirin EC 81 mg [Ecotrin 81 mg] 81 mg PO DAILY Clopidogrel Bisulfate [PLAVIX Tablet] 75 mg PO DAILY Enoxaparin Sodium [Enoxaparin Sodium] 30 mg SQ DAILY Fluoxetine HCl 20 mg [Prozac 20 MG] 20 mg PO DAILY Furosemide 20 mg [Lasix 20 mg] 20 mg PO DAILY Gabapentin [Neurontin ] 100 mg PO DAILY PANTOPRAZOLE 40 mg Tablet [Protonix 40MG Tablet] 40 mg PO DAILY Simvastatin 20Mg [Zocor 20Mg] 40 mg PO DAILY 05/05/22 05:00 EKG ONCE 05/06/22 05:00 EKG ONCE Lab Tests 05/03/22 05/03/22 05/03/22 15:30 15:40 15:40 WBC 13.0 H RBC 3.61 L Hgb 11.1 L Hct 35.9 MCV 99.4 MCH 30.7 MCHC 30.9 L RDW 13.8 Plt Count 154 MPV 11.4 H Gran % 80.8 H Immature Gran % (Auto) 0.7 H Nucleat RBC Rel Count 0.0 Eos # (Auto) 0.02 Immature Gran # (Auto) 0.09 H Absolute Lymphs (auto) 0.87 L Absolute Monos (auto) 1.48 H Absolute Nucleated RBC 0.00 Lymphocytes % 6.7 L Monocytes % 11.4 Eosinophils % 0.2 Basophils % 0.2 Absolute Granulocytes 10.53 H Basophils # 0.02 Sodium 138 Potassium 4.3 Chloride 103 Carbon Dioxide 22 Anion Gap 16.8 H BUN 58 H Creatinine 3.12 H Estimated GFR 15.6 Glucose 96 Calcium 8.5 Total Bilirubin 0.70 AST 24 ALT 17 Alkaline Phosphatase 110 Troponin I 0.218 H* Serum Total Protein 6.8 Albumin 3.8 Amylase 37 Lipase 56 Urinalys Dipstick Clnc Urine Color Urine Appearance Urine pH Ur Specific [place] POC Urine Protein Conf Urine Ketones Urine Nitrite Urine Bilirubin Urine Urobilinogen Urine Leukocytes Urine WBC (Auto) Urine RBC (Auto) U Epithel Cells (Auto) Urine Bacteria (Auto) Urine RBC Ur Culture Indicated? Urine Glucose Monoscreen Influenza Type A Ag Influenza Type B Ag RSV (PCR) SARS-CoV-2 (PCR) 05/03/22 05/03/22 05/03/22 15:40 15:40 Unknown WBC RBC Hgb Hct MCV MCH MCHC RDW Plt Count MPV Gran % Immature Gran % (Auto) Nucleat RBC Rel Count Eos # (Auto) Immature Gran # (Auto) Absolute Lymphs (auto) Absolute Monos (auto) Absolute Nucleated RBC Lymphocytes % Monocytes % Eosinophils % Basophils % Absolute Granulocytes Basophils # Sodium Potassium Chloride Carbon Dioxide Anion Gap BUN Creatinine Estimated GFR Glucose Calcium Total Bilirubin AST ALT Alkaline Phosphatase Troponin I Serum Total Protein Albumin Amylase Lipase Urinalys Dipstick Clnc MAIN LAB Urine Color YELLOW Urine Appearance SLIGHTLY CLOUDY A Urine pH 5.5 Ur Specific [place] 1.015 POC Urine Protein Conf 100 A Urine Ketones NEGATIVE Urine Nitrite NEGATIVE Urine Bilirubin NEGATIVE Urine Urobilinogen 0.2 Urine Leukocytes LARGE A Urine WBC (Auto) 16-25 A Urine RBC (Auto) 6-10 A U Epithel Cells (Auto) RARE Urine Bacteria (Auto) RARE Urine RBC MODERATE A Ur Culture Indicated? YES Urine Glucose NEGATIVE Monoscreen NEGATIVE Influenza Type A Ag NEGATIVE Influenza Type B Ag NEGATIVE RSV (PCR) NEGATIVE SARS-CoV-2 (PCR) NEGATIVE Code(s): N12 - TUBULO-INTERSTITIAL NEPHRITIS, NOT SPCF ACUTE OR CHRONIC; B96.20 - UNSP ESCHERICHIA COLI THE CAUSE OF DISEASES CLASSD ELSWHR (3) Fever Current Visit: Yes Status: Acute Qualifiers: Fever type: unspecified Qualified Code(s): R50.9 - Fever, unspecified Code(s): R50.9 - FEVER, UNSPECIFIED (4) Flank pain Current Visit: Yes Status: Acute Code(s): R10.9 - UNSPECIFIED ABDOMINAL PAIN
[2022-05-03] MEDS: Zetia 10 MG PO SCH (21:09)
[2022-05-03] MEDS: Aldactone 25 MG PO SCH (21:09)
[2022-05-03] MEDS: Lopressor 25MG Tab PO SCH (21:09)
[2022-05-04] MEDS: MORPHINE SULFATE 2 MG INJ IV PRN (03:29)
[2022-05-04] MEDS: Neurontin PO SCH (08:51)
[2022-05-04] MEDS: ZOCOR 20MG PO SCH (08:51)
[2022-05-04] MEDS: LASIX 20 MG PO SCH (08:51)
[2022-05-04] MEDS: ECOTRIN 81 MG PO SCH (08:51)
[2022-05-04] MEDS: NORVASC 5 MG PO SCH (08:51)
[2022-05-04] MEDS: Protonix 40MG Tablet PO SCH (08:51)
[2022-05-04] MEDS: Prozac 20 MG PO SCH (08:51)
[2022-05-04] MEDS: ZYLOPRIM 300 MG PO SCH (08:51)
[2022-05-04] MEDS: Aldactone 25 MG PO SCH ×2 (08:51→21:12)
[2022-05-04] MEDS: Lopressor 25MG Tab PO SCH ×2 (08:51→21:12)
[2022-05-04] MEDS: PLAVIX Tablet PO SCH (08:51)
[2022-05-04] MEDS: ENOXAPARIN SODIUM SQ SCH (08:52)
[2022-05-04] MEDS ORDERED: TOLTERODINE TARTRATE 4 MG PO SCH (10:00)
[2022-05-04] MEDS ORDERED: PARICALCITOL 1 MCG PO SCH (10:00)
[2022-05-04] MEDS ORDERED: NON-FORMULARY ITEM (Lansoprazole [Lansoprazole] 30 MG Capsule.Dr) PO SCH (10:00)
[2022-05-04] MEDS ORDERED: NON-FORMULARY ITEM (Atorvastatin Calcium [Lipitor] 10 MG Tablet) PO SCH (10:00)
[2022-05-04] MEDS ORDERED: ENOXAPARIN SODIUM SQ SCH (10:00)
[2022-05-04] MEDS ORDERED: NORCO 7.5/325 MG TAB PO PRN (10:43)
[2022-05-04] MEDS: Ditropan XL 5 MG PO SCH (14:29)
[2022-05-04] MEDS ORDERED: ROCEPHIN 1 Gm-D5w 50 ml Bag** 1 G/50 ML IVPB IV SCH (16:00)
[2022-05-04] MEDS: Sodium Chloride 0.9% 1000 ML 1,000 ML IV SCH (21:12)
[2022-05-04] MEDS: Zetia 10 MG PO SCH (21:12)
[2022-05-05 06:31] LABS: Hematocrit 30.6 % (35-47); Hemoglobin 9.7 g/dL (12.0-16.0); Mean Cell Volume 98.1 fL (78-100); Mean Corpuscular Hemoglobin 31.1 pg (26-32); Mean Corpuscular Hgb Concent. 31.7 g/dL (32-36); Mean Platelet Volume 12.3 fL (7.5-11.0); Platelet Count 140 x10^3/uL (150-450); Red Blood Count 3.12 x10^6/uL (4.1-5.4); Red Cell Distribution Width 14.3 % (11.5-14.0); White Blood Count 8.4 x10^3/uL (4.0-10.5)
[2022-05-05 07:03] LABS: ALBUMIN 3.1 g/dL (3.5-5.0); BILIRUBIN,TOTAL 0.7 mg/dL (0.2-1.3); Calcium 7.3 mg/dL (8.4-10.2); Creatinine 1 2.87 mg/dL (0.52-1.04); EST GLOMERULAR FILTRATION RATE 17.2 ML/MIN; Total Protein 6.4 g/dL (6.3-8.2)
[2022-05-05 07:05] LABS: Potassium 4.1 mmol/L (3.5-5.1)
[2022-05-05 07:31] VITALS: BP 121/56; PULSE 61
[2022-05-05 07:37] LABS: ANION GAP 15.1 MEQ/L (5-15); TROPONIN 0.118 ng/mL (0.000-0.034)
[2022-05-05 07:50] VITALS: O2SAT 93
[2022-05-05] MEDS: Neurontin PO SCH (08:49)
[2022-05-05] MEDS: Lopressor 25MG Tab PO SCH (08:49)
[2022-05-05] MEDS: Aldactone 25 MG PO SCH (08:49)
[2022-05-05] MEDS: NORVASC 5 MG PO SCH (08:49)
[2022-05-05] MEDS: LASIX 20 MG PO SCH (08:49)
[2022-05-05] MEDS: ECOTRIN 81 MG PO SCH (08:49)
[2022-05-05] MEDS: Prozac 20 MG PO SCH (08:49)
[2022-05-05] MEDS: Protonix 40MG Tablet PO SCH (08:49)
[2022-05-05] MEDS: ZOCOR 20MG PO SCH (08:49)
[2022-05-05] MEDS: Ditropan XL 5 MG PO SCH (08:49)
[2022-05-05] MEDS: ENOXAPARIN SODIUM SQ SCH (08:50)
[2022-05-05] MEDS: PLAVIX Tablet PO SCH (08:50)
[2022-05-05] MEDS: ZYLOPRIM 300 MG PO SCH (08:50)
== END 2022-05-05 10:57 | disposition home or self-care (01) ==
LOC: ED 14:49 → ICU 17:40 → MED SURG 05-04 10:52
PROVIDERS: ADMIT General Practice; ATTEND General Practice
DX: I21.4 Non-ST elevation (NSTEMI) myocardial infarction (principal); N12 Tubulo-interstitial nephritis, not specified as acute or chronic; R50.9 Fever, unspecified; R10.9 Unspecified abdominal pain; I10 Essential (primary) hypertension; E11.9 Type 2 diabetes mellitus without complications; E78.5 Hyperlipidemia, unspecified; I25.10 Atherosclerotic heart disease of native coronary artery without angina pectoris; Z79.899 Other long term (current) drug therapy; Z20.828 Contact with and (suspected) exposure to other viral communicable diseases
CPT/HCPCS: 0241U; 36000; 36415; 71045; 74176; 80053; 80061; 81015; 82150; 83036; 83690; 83721; 84484; 85025; 85027; 86308; 87040; 87077; 87086; 87186; 93005; 94760; 94762; 96360; 96365; 96374; 96375; 99285; 99291; 93268; J0696; J1170; J1650; J2270; J2405; A9270-GY; G0378

== ENCOUNTER 2022-05-21 09:29 | Observation (INO) | payer MEDICARE, OTHER ==
[2022-05-21] MEDS ORDERED: SUBLIMAZE 100 MCG/2 ML IV ONE (09:31)
[2022-05-21] MEDS ORDERED: Nitrostat 0.4 MG (ED) SL ONE (09:31)
[2022-05-21] MEDS ORDERED: BABY ASPIRIN 81 MG CHEW PO ONE (09:31)
[2022-05-21 10:07] LABS: Absolute Neutrophil Ct (ANC) 4.12 x10^3/uL (1.4-6.9); Basophil (Absolute #) 0.06 x10^3/uL (0-0.4); Eosinophil % 3.7 % (0.00-5.0); Eosinophil (Absolute #) 0.27 x10^3/uL (0-0.5); Hematocrit 34.8 % (35-47); Hemoglobin 10.8 g/dL (12.0-16.0); Lymphocyte (Absolute #) 2.12 x10^3/uL (1.0-4.6); Lymphocytes % 28.7 % (24.0-44.0); Mean Cell Volume 99.7 fL (78-100); Mean Corpuscular Hemoglobin 30.9 pg (26-32); Mean Platelet Volume 10.8 fL (7.5-11.0); Monocyte (Absolute #) 0.79 x10^3/uL (0.0-1.3); Monocytes % 10.7 % (0.0-12.0); Neutrophil % 55.8 % (36.0-66.0); Platelet Count 297 x10^3/uL (150-450); Red Blood Count 3.49 x10^6/uL (4.1-5.4); Red Cell Distribution Width 14.3 % (11.5-14.0); White Blood Count 7.4 x10^3/uL (4.0-10.5)
[2022-05-21] MEDS: Sodium Chloride 0.9% 1000 ML 1,000 ML IV SCH (10:10)
--- NOTE | 2022-05-21 10:19 | XRAY ---
Indication: Chest pain. Comparison: May 03, 2022 Portable chest remains inflated and clear. Heart not enlarged again with CABG. No new/acute findings.
[2022-05-21 10:25] LABS: ANION GAP 16.8 MEQ/L (5-15); BILIRUBIN,TOTAL 0.4 mg/dL (0.2-1.3); Calcium 9.6 mg/dL (8.4-10.2); Creatinine 1 2.43 mg/dL (0.52-1.04); EST GLOMERULAR FILTRATION RATE 20.8 ML/MIN; MAGNESIUM 1.7 mg/dL (1.6-2.3); Potassium 4.6 mmol/L (3.5-5.1); Total Protein 7.2 g/dL (6.3-8.2)
[2022-05-21 10:30] LABS: INR 1.08 (0.8-3.0); PROTIME 11.4 SECONDS (9.4-12.5); PTT 24.7 SECONDS (25.1-36.5)
[2022-05-21] MEDS ORDERED: SUBLIMAZE 100 MCG/2 ML ONE (10:31)
[2022-05-21 10:33] LABS: D-DIMER QUANTITATIVE 1.13 mg/L (0.0-0.50)
[2022-05-21 10:44] LABS: INFLUENZA A NEGATIVE (NEGATIVE); INFLUENZA B NEGATIVE (NEGATIVE); RESPIRATORY SYNCTIAL VIRUS NEGATIVE (Negative); SARS-CoV-2 Xpert Express NEGATIVE (NEGATIVE)
--- NOTE | 2022-05-21 13:01 | ERPHSYRPT ---
- History of Present Illness Time Seen by Provider: 05/21/22 09:40 Historian: patient Exam Limitations: no limitations Patient Subjective Stated Complaint: PT HERE FOR CHEST FOR AN HOUR AGO,WAS AT REST, TOOK A NIRTO THAT HELPED, THIS IS HER 3RD VISIT TO AN ER IN A WEEK FOR THE SAME CO, STATES PAIN IS TO RIGHT SHOULDER AND ARM, HAS COVID Triage Nursing Assessment: PT ALERT, ARRIVED PER WC, RESP EASY , FACE MASK ALLPIED, RESP EASY, SKIN W/D/P, Physician History: Patient is a 72-year-old white female presents with a 1 hour history of severe left-sided chest pain which goes to the left shoulder and arm. She has been seen 3 times recently she was admitted here on observation by Dr. Baeza at she also was seen at the [facility] and discharged home and she presents today with a recurrence of her pain. She took a nitroglycerin which normally helps her pain but this time it did not. She has a history of a CABG x4 6 years ago and 1 year ago had a septal defect that was allowing some mini strokes to occur and it was closed. Timing/Duration: hour(s) (1) Activities at Onset: none Quality: cramping, pressure Location: substernal Chest Pain Radiation: arm (Left) Severity of Pain-Max: moderate Severity of Pain-Current: moderate Modifying Factors: Improves With: exertion Associated Symptoms: denies symptoms Prior Chest Pain/Cardiac Workup: cardiac cath, heart attack, recent hospitalization Nitro Today/Relief: 0.4 mg x 1 Aspirin Treatment Today: 81 mg x 1, 325 mg x 1 Allergies/Adverse Reactions: Penicillins Allergy (Verified 05/21/22 09:43) Home Medications: Clopidogrel Bisulfate [PLAVIX Tablet] 75 mg PO DAILY 12/10/15 [History] Fluoxetine HCl 20 mg PO DAILY 12/10/15 [History] Paricalcitol [Zemplar] 1 mcg PO DAILY 12/10/15 [History] Spironolactone 25 mg PO BID 12/10/15 [History] Tolterodine Tartrate [Detrol LA] 4 mg PO DAILY 12/10/15 [History] Amlodipine Besylate 5 mg PO DAILY 06/10/17 [History] Aspirin [Aspirin EC] 81 mg PO DAILY 06/10/17 [History] Atorvastatin Calcium [Lipitor] 80 mg PO DAILY 06/10/17 [History] Furosemide 20 mg [Lasix 20 mg] 20 mg PO DAILY 06/10/17 [History] Lansoprazole 30 mg PO DAILY 06/10/17 [History] Allopurinol 300 mg [Zyloprim 300 mg] 300 mg PO DAILY 05/03/22 [History] Ezetimibe 10 mg [Zetia 10 MG] 10 mg PO HS 05/03/22 [History] Gabapentin [Neurontin ] 100 mg PO DAILY 05/03/22 [History] Metoprolol Tartrate 25 mg [Lopressor 25MG Tab] 25 mg PO BID 05/03/22 [History] Isosorbide Mononitrate 30 mg [Imdur 30 MG] 30 mg PO DAILY 05/21/22 [History] Hx Tetanus, Diphtheria Vaccination/Date Given: Yes (UP TO DATE) Hx Influenza Vaccination/Date Given: Yes Hx Pneumococcal Vaccination/Date Given: Yes Immunizations Up to Date: Yes Travel Risk - International Travel Have you traveled outside of the country in past 3 weeks: No - Coronavirus Screening Are you exhibiting any of the following symptoms?: No - Vaccine Status Have you recieved a Covid-19 vaccination: Yes [employer]: [employer] - Vaccination Dates Date of 2cond Vaccination (if applicable): 2020 - Review of Systems Constitutional: No Fever, No Chills Eyes: No Symptoms Ears, Nose, & Throat: No Symptoms Respiratory: No Cough, No Dyspnea Cardiac: Chest Pain, No Edema, No Syncope Abdominal/Gastrointestinal: No Abdominal Pain, No Nausea, No Vomiting, No Diarrhea Genitourinary Symptoms: No Dysuria Musculoskeletal: No Back Pain, No Neck Pain Skin: No Rash Neurological: No Dizziness, No Focal Weakness, No Sensory Changes Psychological: No Symptoms Endocrine: No Symptoms All Other Systems: Reviewed and Negative - Past Medical History Pertinent Past Medical History: Yes Neurological History: TIA Cardiac History: Coronary Artery Disease, Hypertension Respiratory History: No Pertinent History Endocrine Medical History: No Pertinent History Musculoskeletal History: Osteoarthritis Other Medical History: POLCYSTIC KIDNEY DISEASE - Past Surgical History Past Surgical History: Yes Cardiac: CABG Musculoskeletal: Other Female Surgical History: Hysterectomy Other Surgical History: left/right knee replacements - Social History Smoking Status: Never smoker Exposure to second hand smoke: No Drug Use: none Patient Lives Alone: No - Nursing Vital Signs Nursing Vital Signs: Initial Vital Signs Temperature 97.2 F 05/21/22 09:34 Pulse Rate 68 05/21/22 09:34 Respiratory Rate 22 05/21/22 09:34 Blood Pressure 136/72 05/21/22 09:34 O2 Sat by Pulse Oximetry 94 L 05/21/22 09:34 Pain Scale Pain Intensity 1 - Physical Exam General Appearance: mild distress, alert Eye Exam: PERRL/EOMI, eyes nml inspection Ears, Nose, Throat Exam: normal ENT inspection, moist mucous membranes Neck Exam: normal inspection, non-tender, supple, full range of motion Respiratory Exam: normal breath sounds, lungs clear, No respiratory distress Cardiovascular Exam: regular rate/rhythm, normal heart sounds Gastrointestinal/Abdomen Exam: soft, No tenderness, No mass Back Exam: normal inspection, No CVA tenderness, No vertebral tenderness Extremity Exam: normal inspection, normal range of motion Neurologic Exam: alert, oriented x 3, cooperative, normal mood/affect, sensation nml, No motor deficits Skin Exam: normal color, warm, dry SpO2: 98 - Course Nursing assessment & vital signs reviewed: Yes EKG Interpreted by Me: RATE (69), Right Bundle Branch Block, Non-specific ST Changes (There is marked ST depression in the first EKG compared to one taken on 05/03/2022), Other (The second EKG showed some improvement in the amount of ST depression however it is still not back to the baseline EKG of 05/03/2022.) - Radiology Exams Chest X-ray Interpretation: Negative Ordered Tests: Active Orders 24 hr Category Date Time Status EKG-ER Only STAT Care 05/21/22 09:31 Active IV Insertion STAT Care 05/21/22 09:31 Active CHEST 1 VIEW (PORTABLE) Stat Exams 05/21/22 09:32 Completed AMYLASE Stat Lab 05/21/22 09:50 Completed CBC W DIFF Stat Lab 05/21/22 09:50 Completed CMP Stat Lab 05/21/22 09:50 Completed D-DIMER QUANTITATIVE Stat Lab 05/21/22 09:50 Completed LIPASE Stat Lab 05/21/22 09:50 Completed Lactic Acid Stat Lab 05/21/22 10:01 Completed MAGNESIUM Stat Lab 05/21/22 09:50 Completed NT PRO BNP Stat Lab 05/21/22 09:50 Completed PROTIME WITH INR Stat Lab 05/21/22 09:50 Completed PTT Stat Lab 05/21/22 09:50 Completed TROPONIN Q4H Lab 05/21/22 09:50 Completed TROPONIN Q4H Lab 05/21/22 13:45 Ordered TROPONIN Q4H Lab 05/21/22 17:45 Ordered UA W/RFX CULTURE Stat Lab 05/21/22 Ordered Medication Summary Generic Name Dose Route Start Last Admin Trade Name Freq PRN Reason Stop Dose Admin Sodium Chloride 1,000 mls @ 50 mls/hr 05/21/22 09:45 05/21/22 10:10 Sodium Chloride 0.9% 1000 Ml IV 06/20/22 09:44 50 mls/hr .Q20H STEPHANIE Administration Discontinued Medications Generic Name Dose Route Start Last Admin Trade Name Freq PRN Reason Stop Dose Admin Aspirin 324 mg 05/21/22 09:31 05/21/22 09:58 Aspirin 81 Mg Tab.Chew PO 05/21/22 09:32 324 mg STAT ONE Administration Fentanyl Citrate 50 mcg 05/21/22 09:31 05/21/22 10:35 Fentanyl Citrate 100 Mcg/2 Ml* Vial IV 05/21/22 09:32 50 mcg STAT ONE Administration Fentanyl Citrate Confirm 05/21/22 10:31 Fentanyl Citrate 100 Mcg/2 Ml* Vial Administered 05/21/22 10:32 Dose 100 mcg .ROUTE .STK-MED ONE Nitroglycerin 0.4 mg 05/21/22 09:31 05/21/22 10:09 Nitroglycerin 0.4 Mg (Ed) 0.4 Mg Tab.Subl SL 05/21/22 09:32 0.4 mg STAT ONE Administration Lab/Rad Data: Laboratory Result Diagrams 05/21/22 09:50 05/21/22 09:50 Laboratory Results 05/21/22 05/21/22 05/21/22 Range/Units 10:01 09:50 09:50 WBC (4.0-10.5) x10^3/uL RBC (4.1-5.4) x10^6/uL Hgb (12.0-16.0) g/dL Hct (35-47) % MCV (78-100) fL MCH (26-32) pg MCHC (32-36) g/dL RDW (11.5-14.0) % Plt Count (150-450) x10^3/uL MPV (7.5-11.0) fL Gran % (36.0-66.0) % Immature Gran % (Auto) (0.00-0.4) % Nucleat RBC Rel Count (0.00-0.1) % Eos # (Auto) (0-0.5) x10^3/uL Immature Gran # (Auto) (0.00-0.03) x10^3u/L Absolute Lymphs (auto) (1.0-4.6) x10^3/uL Absolute Monos (auto) (0.0-1.3) x10^3/uL Absolute Nucleated RBC (0.00-0.01) x10^3u/L Lymphocytes % (24.0-44.0) % Monocytes % (0.0-12.0) % Eosinophils % (0.00-5.0) % Basophils % (0.0-0.4) % Absolute Granulocytes (1.4-6.9) x10^3/uL Basophils # (0-0.4) x10^3/uL PT (9.4-12.5) SECONDS INR (0.8-3.0) APTT (25.1-36.5) SECONDS D-Dimer (0.0-0.50) mg/L Sodium (137-145) mmol/L Potassium (3.5-5.1) mmol/L Chloride (98-107) mmol/L Carbon Dioxide (22-30) mmol/L Anion Gap (5-15) MEQ/L BUN (7-17) mg/dL Creatinine (0.52-1.04) mg/dL Estimated GFR ML/MIN Glucose (74-106) mg/dL Lactic Acid 1.9 (0.4-2.0) Calcium (8.4-10.2) mg/dL Magnesium (1.6-2.3) mg/dL Total Bilirubin (0.2-1.3) mg/dL AST (14-36) U/L ALT (0-35) U/L Alkaline Phosphatase (38-126) U/L Troponin I 0.077 H* (0.000-0.034) ng/mL NT-Pro-B Natriuret Pep (0-900) pg/mL Serum Total Protein (6.3-8.2) g/dL Albumin (3.5-5.0) g/dL Amylase (30-110) U/L Lipase (23-300) U/L Influenza Type A Ag NEGATIVE (NEGATIVE) Influenza Type B Ag NEGATIVE (NEGATIVE) RSV (PCR) NEGATIVE (Negative) SARS-CoV-2 (PCR) NEGATIVE (NEGATIVE) 05/21/22 05/21/22 05/21/22 Range/Units 09:50 09:50 09:50 WBC 7.4 (4.0-10.5) x10^3/uL RBC 3.49 L (4.1-5.4) x10^6/uL Hgb 10.8 L (12.0-16.0) g/dL Hct 34.8 L (35-47) % MCV 99.7 (78-100) fL MCH 30.9 (26-32) pg MCHC 31.0 L (32-36) g/dL RDW 14.3 H (11.5-14.0) % Plt Count 297 (150-450) x10^3/uL MPV 10.8 (7.5-11.0) fL Gran % 55.8 (36.0-66.0) % Immature Gran % (Auto) 0.3 (0.00-0.4) % Nucleat RBC Rel Count 0.0 (0.00-0.1) % Eos # (Auto) 0.27 (0-0.5) x10^3/uL Immature Gran # (Auto) 0.02 (0.00-0.03) x10^3u/L Absolute Lymphs (auto) 2.12 (1.0-4.6) x10^3/uL Absolute Monos (auto) 0.79 (0.0-1.3) x10^3/uL Absolute Nucleated RBC 0.00 (0.00-0.01) x10^3u/L Lymphocytes % 28.7 (24.0-44.0) % Monocytes % 10.7 (0.0-12.0) % Eosinophils % 3.7 (0.00-5.0) % Basophils % 0.8 (0.0-0.4) % Absolute Granulocytes 4.12 (1.4-6.9) x10^3/uL Basophils # 0.06 (0-0.4) x10^3/uL PT 11.4 (9.4-12.5) SECONDS INR 1.08 (0.8-3.0) APTT 24.7 L (25.1-36.5) SECONDS D-Dimer 1.13 H* (0.0-0.50) mg/L Sodium 140 (137-145) mmol/L Potassium 4.6 (3.5-5.1) mmol/L Chloride 108 H (98-107) mmol/L Carbon Dioxide 20 L (22-30) mmol/L Anion Gap 16.8 H (5-15) MEQ/L BUN 41 H (7-17) mg/dL Creatinine 2.43 H (0.52-1.04) mg/dL Estimated GFR 20.8 ML/MIN Glucose 133 H (74-106) mg/dL Lactic Acid (0.4-2.0) Calcium 9.6 (8.4-10.2) mg/dL Magnesium 1.7 (1.6-2.3) mg/dL Total Bilirubin 0.40 (0.2-1.3) mg/dL AST 26 (14-36) U/L ALT 26 (0-35) U/L Alkaline Phosphatase 122 (38-126) U/L Troponin I (0.000-0.034) ng/mL NT-Pro-B Natriuret Pep 381 (0-900) pg/mL Serum Total Protein 7.2 (6.3-8.2) g/dL Albumin 4.0 (3.5-5.0) g/dL Amylase 84 (30-110) U/L Lipase 256 (23-300) U/L Influenza Type A Ag (NEGATIVE) Influenza Type B Ag (NEGATIVE) RSV (PCR) (Negative) SARS-CoV-2 (PCR) (NEGATIVE) - Progress Progress: improved Air Movement: good Progress Note: 05/21/22 13:02 Patient did have an elevated troponin of 0.077 but this compares to a range of troponins from 0.218 down to 0.118 recently. She also has an elevated D-dimer of 1.13 but this is actually lower than her previous the dimer of 1.68. Blood Culture(s) Obtained: No Antibiotics given: No Discussed with DrElvie: Mariangel, Other (Dr. Amanda) Will see patient in: hospital (observation) (Patient being admitted on observation since there is a 48-hour wait for a bed at [facility].) - Departure Departure Disposition: Observation Clinical Impression: Unstable angina Condition: Stable Critical Care Time: No Referrals: CHERYL ANGELA MD [Primary Care Provider] - Follow up/PCP as directed Instructions: Chest Pain (DC)
[2022-05-21] MEDS ORDERED: TYLENOL 325 MG PO PRN (13:05)
[2022-05-21] MEDS ORDERED: Senokot-S Tablet PO PRN (13:05)
[2022-05-21] MEDS ORDERED: MILK OF MAGNESIA 30 ML PO PRN (13:05)
[2022-05-21] MEDS ORDERED: Zofran 4 MG/2 ML VIAL IV PRN (13:05)
[2022-05-21] MEDS ORDERED: MAALOX ES 30 ML UNIT DOSE PO PRN (13:05)
[2022-05-21] MEDS ORDERED: Sodium Chloride 0.9% 500 ML 500 ML IV SCH (13:15)
[2022-05-21] MEDS ORDERED: Nitrostat 0.4 MG Tablet SL PRN (14:36)
[2022-05-21] MEDS ORDERED: MORPHINE SULFATE 2 MG INJ IV PRN (14:36)
[2022-05-21] MEDS: Prozac 20 MG PO SCH (16:07)
[2022-05-21] MEDS: PLAVIX Tablet PO SCH (16:07)
[2022-05-21] MEDS: ZOCOR 20MG PO SCH (16:07)
[2022-05-21] MEDS: ECOTRIN 81 MG PO SCH (16:07)
[2022-05-21] MEDS: NORVASC 5 MG PO SCH (16:07)
[2022-05-21] MEDS: ZYLOPRIM 300 MG PO SCH (16:07)
[2022-05-21] MEDS: Imdur 30 MG PO SCH (16:07)
[2022-05-21] MEDS: LASIX 20 MG PO SCH (16:07)
[2022-05-21] MEDS: Neurontin PO SCH (16:07)
[2022-05-21] MEDS: Protonix 40MG Tablet PO SCH (16:07)
[2022-05-21] MEDS: Ditropan XL 5 MG PO SCH (16:10)
[2022-05-21] MEDS ORDERED: MEDICATION INTERVENTION MC SCH ×2 (16:15)
[2022-05-21] MEDS: Lopressor 25MG Tab PO SCH (20:55)
[2022-05-21] MEDS: Aldactone 25 MG PO SCH (20:55)
[2022-05-21] MEDS ORDERED: Zetia 10 MG PO SCH (22:00)
[2022-05-22 04:27] LABS: Absolute Neutrophil Ct (ANC) 5.28 x10^3/uL (1.4-6.9); Basophil (Absolute #) 0.03 x10^3/uL (0-0.4); Eosinophil % 3.3 % (0.00-5.0); Eosinophil (Absolute #) 0.26 x10^3/uL (0-0.5); Hematocrit 33.5 % (35-47); Hemoglobin 10.5 g/dL (12.0-16.0); Lymphocyte (Absolute #) 1.51 x10^3/uL (1.0-4.6); Lymphocytes % 19.3 % (24.0-44.0); Mean Cell Volume 99.1 fL (78-100); Mean Corpuscular Hemoglobin 31.1 pg (26-32); Mean Corpuscular Hgb Concent. 31.3 g/dL (32-36); Mean Platelet Volume 10.6 fL (7.5-11.0); Monocyte (Absolute #) 0.71 x10^3/uL (0.0-1.3); Monocytes % 9.1 % (0.0-12.0); Neutrophil % 67.5 % (36.0-66.0); Platelet Count 271 x10^3/uL (150-450); Red Blood Count 3.38 x10^6/uL (4.1-5.4); Red Cell Distribution Width 14.5 % (11.5-14.0); White Blood Count 7.8 x10^3/uL (4.0-10.5)
[2022-05-22 04:42] LABS: ALBUMIN 3.5 g/dL (3.5-5.0); ANION GAP 11.6 MEQ/L (5-15); BILIRUBIN,TOTAL 0.5 mg/dL (0.2-1.3); Calcium 8.9 mg/dL (8.4-10.2); Creatinine 1 2.28 mg/dL (0.52-1.04); EST GLOMERULAR FILTRATION RATE 22.4 ML/MIN; Potassium 4.7 mmol/L (3.5-5.1); Total Protein 6.6 g/dL (6.3-8.2)
[2022-05-22 04:52] LABS: Risk Ratio 3.8
--- NOTE | 2022-05-22 07:35 | PCM.HP ---
History of Present Illness - Chief Complaint Chief Complaint: CHEST PAIN for 2-3 days History of Present Illness: is a 72 year old female presents with a 1 hour history of severe left-sided chest pain which goes to the left shoulder and arm. She has been seen 3 times recently she was admitted here on observation by Dr. Baeza at she also was seen at the [facility] and discharged home and she presents today with a recurrence of her pain. She took a nitroglycerin which normally helps her pain but this time it did not. She has a history of a CABG x4 6 years ago and 1 year ago had a septal defect that was allowing some mini strokes to occur and it was closed. Timing/Duration: hour(s) (1) Activities at Onset: none Quality: cramping, pressure Location: substernal Chest Pain Radiation: arm (Left) Severity of Pain-Max: moderate Severity of Pain-Current: moderate Modifying Factors: Improves With: exertion Associated Symptoms: denies symptoms Prior Chest Pain/Cardiac Workup: cardiac cath, heart attack, recent hospitalization Nitro Today/Relief: 0.4 mg x 1 Aspirin Treatment Today: 81 mg x 1, 325 mg x 1 - Review of Systems Constitutional: No Fever, No Chills Eyes: No Symptoms Ears, Nose, & Throat: No Symptoms Respiratory: No Cough, No Short Of Breath Cardiac: Chest Pain, No Edema, No Syncope Abdominal/Gastrointestinal: No Abdominal Pain, No Nausea, No Vomiting, No Diarrhea Genitourinary Symptoms: No Dysuria Musculoskeletal: No Back Pain, No Neck Pain Skin: No Rash Neurological: No Dizziness, No Focal Weakness, No Sensory Changes Psychological: No Symptoms Endocrine: No Symptoms Hematologic/Lymphatic: No Symptoms Immunological/Allergic: No Symptoms Medications & Allergies Home Medications: Home Medication List Clopidogrel Bisulfate [PLAVIX Tablet] 75 mg PO DAILY 12/10/15 [History Confirmed 05/21/22] Fluoxetine HCl 20 mg PO DAILY 12/10/15 [History Confirmed 05/21/22] Paricalcitol [Zemplar] 1 mcg PO DAILY 12/10/15 [History Confirmed 05/21/22] Spironolactone 25 mg PO BID 12/10/15 [History Confirmed 05/21/22] Tolterodine Tartrate [Detrol LA] 4 mg PO DAILY 12/10/15 [History Confirmed 05/21/22] Amlodipine Besylate 5 mg PO DAILY 06/10/17 [History Confirmed 05/21/22] Aspirin [Aspirin EC] 81 mg PO DAILY 06/10/17 [History Confirmed 05/21/22] Atorvastatin Calcium [Lipitor] 80 mg PO DAILY 06/10/17 [History Confirmed 05/21/22] Furosemide 20 mg [Lasix 20 mg] 20 mg PO DAILY 06/10/17 [History Confirmed 05/21/22] Lansoprazole 30 mg PO DAILY 06/10/17 [History Confirmed 05/21/22] Allopurinol 300 mg [Zyloprim 300 mg] 300 mg PO DAILY 05/03/22 [History C onfirmed 05/21/22] Ezetimibe 10 mg [Zetia 10 MG] 10 mg PO HS 05/03/22 [History Confirmed 05/21/22] Gabapentin [Neurontin ] 100 mg PO DAILY 05/03/22 [History Confirmed 05/21/22] Metoprolol Tartrate 25 mg [Lopressor 25MG Tab] 25 mg PO BID 05/03/22 [History Confirmed 05/21/22] Febuxostat [Uloric] 80 mg PO DAILY 05/21/22 [History Confirmed 05/21/22] Isosorbide Mononitrate 30 mg [Imdur 30 MG] 30 mg PO DAILY 05/21/22 [History Confirmed 05/21/22] Allergies/Adverse Reactions: Allergies Allergy/AdvReac Type Severity Reaction Status Date / Time Penicillins Allergy Verified 05/21/22 09:43 - Past Medical History Past Medical History: Yes Neurological History: TIA Cardiac History: Coronary Artery Disease, Hypertension Respiratory History: No Pertinent History Endocrine Medical History: No Pertinent History Musculoskelatal History: Osteoarthritis Comment: POLCYSTIC KIDNEY DISEASE - Female History Are you now?: No - Past Surgical History Past Surgical History: Yes Cardiac History: CABG Musculskeletal Surgical Hx: Other Female Surgical History: Hysterectomy Other Surgical History: left/right knee replacements - Social History Smoking Status: Never smoker Exposure to second hand smoke: No Alcohol: None Drug Use: none - Physical Exam Vital Signs: Vital Signs - 24 hr Temp Pulse Pulse Resp BP Pulse Ox 05/22/22 07:26 98.0 F 57 L 16 135/84 95 11/30/22 04:16 56 L 16 114/69 96 05/22/22 03:56 55 L 16 94 L 05/22/22 00:52 98.2 F 58 L 19 116/96 96 05/22/22 00:01 57 L 05/22/22 00:00 58 L 17 91 L 05/21/22 20:58 61 17 97/61 94 L 05/21/22 20:00 68 05/21/22 19:46 68 16 137/70 05/21/22 16:00 68 13 134/68 97 05/21/22 14:36 62 05/21/22 14:14 97.2 F 62 13 155/87 97 05/21/22 13:10 62 13 155/87 97 05/21/22 13:04 98 05/21/22 12:05 64 130/77 98 05/21/22 11:02 63 20 131/70 97 05/21/22 10:24 64 18 105/55 95 05/21/22 10:22 70 05/21/22 09:34 97.2 F 68 22 136/72 94 L General Appearance: no apparent distress, alert Neurologic Exam: alert, oriented x 3, cooperative, normal mood/affect, nml ce rebellar function, nml station & gait, sensation nml, No motor deficits Eye Exam: PERRL/EOMI, eyes nml inspection Ears, Nose, Throat Exam: normal ENT inspection, TMs normal, pharynx normal, moist mucous membranes Neck Exam: normal inspection, non-tender, supple, full range of motion Respiratory Exam: normal breath sounds, lungs clear, No respiratory distress Cardiovascular Exam: regular rate/rhythm, normal heart sounds, normal peripheral pulses Gastrointestinal/Abdomen Exam: soft, normal bowel sounds, No tenderness, No mass Back Exam: normal inspection, normal range of motion, No CVA tenderness, No vertebral tenderness Extremity Exam: normal inspection, normal range of motion, pelvis stable Skin Exam: normal color, warm, dry, No rash Lymphatic Exam: No adenopathy Results - Labs Lab/Micro Results: Lab Results-Last 24 Hours 05/21/22 05/21/22 05/21/22 Range/Units 09:50 09:50 09:50 WBC 7.4 (4.0-10.5) x10^3/uL RBC 3.49 L (4.1-5.4) x10^6/uL Hgb 10.8 L (12.0-16.0) g/dL Hct 34.8 L (35-47) % MCV 99.7 (78-100) fL MCH 30.9 (26-32) pg MCHC 31.0 L (32-36) g/dL RDW 14.3 H (11.5-14.0) % Plt Count 297 (150-450) x10^3/uL MPV 10.8 (7.5-11.0) fL Gran % 55.8 (36.0-66.0) % Immature Gran % (Auto) 0.3 (0.00-0.4) % Nucleat RBC Rel Count 0.0 (0.00-0.1) % Eos # (Auto) 0.27 (0-0.5) x10^3/uL Immature Gran # (Auto) 0.02 (0.00-0.03) x10^3u/L Absolute Lymphs (auto) 2.12 (1.0-4.6) x10^3/uL Absolute Monos (auto) 0.79 (0.0-1.3) x10^3/uL Absolute Nucleated RBC 0.00 (0.00-0.01) x10^3u/L Lymphocytes % 28.7 (24.0-44.0) % Monocytes % 10.7 (0.0-12.0) % Eosinophils % 3.7 (0.00-5.0) % Basophils % 0.8 (0.0-0.4) % Absolute Granulocytes 4.12 (1.4-6.9) x10^3/uL Basophils # 0.06 (0-0.4) x10^3/uL PT 11.4 (9.4-12.5) SECONDS INR 1.08 (0.8-3.0) APTT 24.7 L (25.1-36.5) SECONDS D-Dimer 1.13 H* (0.0-0.50) mg/L Sodium 140 (137-145) mmol/L Potassium 4.6 (3.5-5.1) mmol/L Chloride 108 H (98-107) mmol/L Carbon Dioxide 20 L (22-30) mmol/L Anion Gap 16.8 H (5-15) MEQ/L BUN 41 H (7-17) mg/dL Creatinine 2.43 H (0.52-1.04) mg/dL Estimated GFR 20.8 ML/MIN Glucose 133 H (74-106) mg/dL Lactic Acid (0.4-2.0) Calcium 9.6 (8.4-10.2) mg/dL Magnesium 1.7 (1.6-2.3) mg/dL Total Bilirubin 0.40 (0.2-1.3) mg/dL AST 26 (14-36) U/L ALT 26 (0-35) U/L Alkaline Phosphatase 122 (38-126) U/L Troponin I (0.000-0.034) ng/mL NT-Pro-B Natriuret Pep 381 (0-900) pg/mL Serum Total Protein 7.2 (6.3-8.2) g/dL Albumin 4.0 (3.5-5.0) g/dL Triglycerides (30-150) mg/dL Cholesterol (50-200) mg/dL LDL Cholesterol (30-100) mg/dL HDL Cholesterol (40-60) mg/dL Heart Disease Risk Ratio Amylase 84 (30-110) U/L Lipase 256 (23-300) U/L Influenza Type A Ag (NEGATIVE) Influenza Type B Ag (NEGATIVE) RSV (PCR) (Negative) SARS-CoV-2 (PCR) (NEGATIVE) 05/21/22 05/21/22 05/21/22 Range/Units 09:50 09:50 10:01 WBC (4.0-10.5) x10^3/uL RBC (4.1-5.4) x10^6/uL Hgb (12.0-16.0) g/dL Hct (35-47) % MCV (78-100) fL MCH (26-32) pg MCHC (32-36) g/dL RDW (11.5-14.0) % Plt Count (150-450) x10^3/uL MPV (7.5-11.0) fL Gran % (36.0-66.0) % Immature Gran % (Auto) (0.00-0.4) % Nucleat RBC Rel Count (0.00-0.1) % Eos # (Auto) (0-0.5) x10^3/uL Immature Gran # (Auto) (0.00-0.03) x10^3u/L Absolute Lymphs (auto) (1.0-4.6) x10^3/uL Absolute Monos (auto) (0.0-1.3) x10^3/uL Absolute Nucleated RBC (0.00-0.01) x10^3u/L Lymphocytes % (24.0-44.0) % Monocytes % (0.0-12.0) % Eosinophils % (0.00-5.0) % Basophils % (0.0-0.4) % Absolute Granulocytes (1.4-6.9) x10^3/uL Basophils # (0-0.4) x10^3/uL PT (9.4-12.5) SECONDS INR (0.8-3.0) APTT (25.1-36.5) SECONDS D-Dimer (0.0-0.50) mg/L Sodium (137-145) mmol/L Potassium (3.5-5.1) mmol/L Chloride (98-107) mmol/L Carbon Dioxide (22-30) mmol/L Anion Gap (5-15) MEQ/L BUN (7-17) mg/dL Creatinine (0.52-1.04) mg/dL Estimated GFR ML/MIN Glucose (74-106) mg/dL Lactic Acid 1.9 (0.4-2.0) Calcium (8.4-10.2) mg/dL Magnesium (1.6-2.3) mg/dL Total Bilirubin (0.2-1.3) mg/dL AST (14-36) U/L ALT (0-35) U/L Alkaline Phosphatase (38-126) U/L Troponin I 0.077 H* (0.000-0.034) ng/mL NT-Pro-B Natriuret Pep (0-900) pg/mL Serum Total Protein (6.3-8.2) g/dL Albumin (3.5-5.0) g/dL Triglycerides (30-150) mg/dL Cholesterol (50-200) mg/dL LDL Cholesterol (30-100) mg/dL HDL Cholesterol (40-60) mg/dL Heart Disease Risk Ratio Amylase (30-110) U/L Lipase (23-300) U/L Influenza Type A Ag NEGATIVE (NEGATIVE) Influenza Type B Ag NEGATIVE (NEGATIVE) RSV (PCR) NEGATIVE (Negative) SARS-CoV-2 (PCR) NEGATIVE (NEGATIVE) 05/21/22 05/21/22 05/22/22 Range/Units 13:30 18:14 04:26 WBC (4.0-10.5) x10^3/uL RBC (4.1-5.4) x10^6/uL Hgb (12.0-16.0) g/dL Hct (35-47) % MCV (78-100) fL MCH (26-32) pg MCHC (32-36) g/dL RDW (11.5-14.0) % Plt Count (150-450) x10^3/uL MPV (7.5-11.0) fL Gran % (36.0-66.0) % Immature Gran % (Auto) (0.00-0.4) % Nucleat RBC Rel Count (0.00-0.1) % Eos # (Auto) (0-0.5) x10^3/uL Immature Gran # (Auto) (0.00-0.03) x10^3u/L Absolute Lymphs (auto) (1.0-4.6) x10^3/uL Absolute Monos (auto) (0.0-1.3) x10^3/uL Absolute Nucleated RBC (0.00-0.01) x10^3u/L Lymphocytes % (24.0-44.0) % Monocytes % (0.0-12.0) % Eosinophils % (0.00-5.0) % Basophils % (0.0-0.4) % Absolute Granulocytes (1.4-6.9) x10^3/uL Basophils # (0-0.4) x10^3/uL PT (9.4-12.5) SECONDS INR (0.8-3.0) APTT (25.1-36.5) SECONDS D-Dimer (0.0-0.50) mg/L Sodium (137-145) mmol/L Potassium (3.5-5.1) mmol/L Chloride (98-107) mmol/L Carbon Dioxide (22-30) mmol/L Anion Gap (5-15) MEQ/L BUN (7-17) mg/dL Creatinine (0.52-1.04) mg/dL Estimated GFR ML/MIN Glucose (74-106) mg/dL Lactic Acid (0.4-2.0) Calcium (8.4-10.2) mg/dL Magnesium (1.6-2.3) mg/dL Total Bilirubin (0.2-1.3) mg/dL AST (14-36) U/L ALT (0-35) U/L Alkaline Phosphatase (38-126) U/L Troponin I 1.770 H* 12.600 H* (0.000-0.034) ng/mL NT-Pro-B Natriuret Pep (0-900) pg/mL Serum Total Protein (6.3-8.2) g/dL Albumin (3.5-5.0) g/dL Triglycerides 93 (30-150) mg/dL Cholesterol 108 (50-200) mg/dL LDL Cholesterol 58 (30-100) mg/dL HDL Cholesterol 29 L (40-60) mg/dL Heart Disease Risk Ratio 3.8 Amylase (30-110) U/L Lipase (23-300) U/L Influenza Type A Ag (NEGATIVE) Influenza Type B Ag (NEGATIVE) RSV (PCR) (Negative) SARS-CoV-2 (PCR) (NEGATIVE) 05/22/22 05/22/22 Range/Units 04:26 04:26 WBC 7.8 (4.0-10.5) x10^3/uL RBC 3.38 L (4.1-5.4) x10^6/uL Hgb 10.5 L (12.0-16.0) g/dL Hct 33.5 L (35-47) % MCV 99.1 (78-100) fL MCH 31.1 (26-32) pg MCHC 31.3 L (32-36) g/dL RDW 14.5 H (11.5-14.0) % Plt Count 271 (150-450) x10^3/uL MPV 10.6 (7.5-11.0) fL Gran % 67.5 H (36.0-66.0) % Immature Gran % (Auto) 0.4 (0.00-0.4) % Nucleat RBC Rel Count 0.0 (0.00-0.1) % Eos # (Auto) 0.26 (0-0.5) x10^3/uL Immature Gran # (Auto) 0.03 (0.00-0.03) x10^3u/L Absolute Lymphs (auto) 1.51 (1.0-4.6) x10^3/uL Absolute Monos (auto) 0.71 (0.0-1.3) x10^3/uL Absolute Nucleated RBC 0.00 (0.00-0.01) x10^3u/L Lymphocytes % 19.3 L (24.0-44.0) % Monocytes % 9.1 (0.0-12.0) % Eosinophils % 3.3 (0.00-5.0) % Basophils % 0.4 (0.0-0.4) % Absolute Granulocytes 5.28 (1.4-6.9) x10^3/uL Basophils # 0.03 (0-0.4) x10^3/uL PT (9.4-12.5) SECONDS INR (0.8-3.0) APTT (25.1-36.5) SECONDS D-Dimer (0.0-0.50) mg/L Sodium 139 (137-145) mmol/L Potassium 4.7 (3.5-5.1) mmol/L Chloride 110 H (98-107) mmol/L Carbon Dioxide 22 (22-30) mmol/L Anion Gap 11.6 (5-15) MEQ/L BUN 39 H (7-17) mg/dL Creatinine 2.28 H (0.52-1.04) mg/dL Estimated GFR 22.4 ML/MIN Glucose 116 H (74-106) mg/dL Lactic Acid (0.4-2.0) Calcium 8.9 (8.4-10.2) mg/dL Magnesium (1.6-2.3) mg/dL Total Bilirubin 0.50 (0.2-1.3) mg/dL AST 104 H (14-36) U/L ALT 29 (0-35) U/L Alkaline Phosphatase 113 (38-126) U/L Troponin I (0.000-0.034) ng/mL NT-Pro-B Natriuret Pep (0-900) pg/mL Serum Total Protein 6.6 (6.3-8.2) g/dL Albumin 3.5 (3.5-5.0) g/dL Triglycerides (30-150) mg/dL Cholesterol (50-200) mg/dL LDL Cholesterol (30-100) mg/dL HDL Cholesterol (40-60) mg/dL Heart Disease Risk Ratio Amylase (30-110) U/L Lipase (23-300) U/L Influenza Type A Ag (NEGATIVE) Influenza Type B Ag (NEGATIVE) RSV (PCR) (Negative) SARS-CoV-2 (PCR) (NEGATIVE) - Radiology Impressions Radiology Exams & Impressions: Radiology Procedures Category Date Time Status CHEST 1 VIEW (PORTABLE) Stat Exams 05/21/22 09:32 Completed - Other Procedures and Tests Respiratory Therapy 05/23/22 05:00 EKG DAILY 05/24/22 05:00 EKG DAILY Assessment/Plan (1) Unstable angina Current Visit: Yes Status: Acute Assessment & Plan: Chief Complaint Diagnosis CHEST PAIN Allergies Allergy/AdvReac Type Severity Reaction Status Date / Time Penicillins Allergy Verified 05/21/22 09:43 Vital Signs (Last 24 hours) Temp Pulse Pulse Resp BP Pulse Ox 05/22/22 07:26 98.0 F 57 L 16 135/84 95 05/22/22 04:16 56 L 16 114/69 96 05/22/22 03:56 55 L 16 94 L 05/22/22 00:52 98.2 F 58 L 19 116/96 96 05/22/22 00:01 57 L 05/22/22 00:00 58 L 17 91 L 05/21/22 20:58 61 17 97/61 94 L 05/21/22 20:00 68 05/21/22 19:46 68 16 137/70 05/21/22 16:00 68 13 134/68 97 05/21/22 14:36 62 05/21/22 14:14 97.2 F 62 13 155/87 97 05/21/22 13:10 62 13 155/87 97 05/21/22 13:04 98 05/21/22 12:05 64 130/77 98 05/21/22 11:02 63 20 131/70 97 05/21/22 10:24 64 18 105/55 95 05/21/22 10:22 70 05/21/22 09:34 97.2 F 68 22 136/72 94 L Home Medications Medication Instructions Recorded Confirmed Last Taken Type Febuxostat [Uloric] 80 mg PO DAILY 05/21/22 05/21/22 05/20/22 History Isosorbide Mononitrate 30 mg 30 mg PO DAILY 05/21/22 05/21/22 05/20/22 History [Imdur 30 MG] Current Medications Generic Name Dose Route Start Last Admin Trade Name Freq PRN Reason Stop Dose Admin Acetaminophen 650 mg 05/21/22 13:05 Acetaminophen 325 Mg Tablet PO 06/20/22 13:04 Q4H PRN PRN PAIN AND/OR FEVER Al Hydrox/Mg Hydrox/Simethicone 30 ml 05/21/22 13:05 Mag Hydrox/Al Hydrox/Simeth 30 Ml Udcup PO 06/20/22 13:04 Q4H PRN PRN INDIGESTION Allopurinol 300 mg 05/21/22 16:00 05/21/22 16:07 Allopurinol 300 Mg Tablet PO 06/20/22 15:59 300 mg DAILY STEPHANIE Administration Amlodipine Besylate 5 mg 05/21/22 16:00 05/21/22 16:07 Amlodipine Besylate 5 Mg Tablet PO 06/20/22 15:59 5 mg DAILY STEPHANIE Administration Aspirin 81 mg 05/21/22 16:00 05/21/22 16:07 Aspirin 81 Mg Tablet.Ec PO 06/20/22 15:59 81 mg DAILY STEPHANIE Administration Clopidogrel Bisulfate 75 mg 05/21/22 16:00 05/21/22 16:07 Clopidogrel Bisulfate 75 Mg Tablet PO 06/20/22 15:59 75 mg DAILY STEPHANIE Administration Ezetimibe 10 mg 05/21/22 22:00 05/21/22 20:55 Ezetimibe 10 Mg Tab PO 06/20/22 21:59 10 mg HS STEPHANIE Administration Fluoxetine HCl 20 mg 05/21/22 16:00 05/21/22 16:07 Fluoxetine Hcl 20 Mg Cap PO 06/20/22 15:59 20 mg DAILY STEPHANIE Administration Furosemide 20 mg 05/21/22 16:00 05/21/22 16:07 Furosemide 20 Mg Tablet PO 06/20/22 15:59 20 mg DAILY STEPHANIE Administration Gabapentin 100 mg 05/21/22 16:00 05/21/22 16:07 Gabapentin 100 Mg Capsule PO 06/20/22 15:59 100 mg DAILY STEPHANIE Administration Sodium Chloride 1,000 mls @ 50 mls/hr 05/21/22 09:45 05/21/22 10:10 Sodium Chloride 0.9% 1000 Ml IV 06/20/22 09:44 50 mls/hr .Q20H STEPHANIE Administration Isosorbide Mononitrate 30 mg 05/21/22 16:00 05/21/22 16:07 Isosorbide Mononitrate 30 Mg Tab PO 06/20/22 15:59 30 mg DAILY STEPHANIE Administration Magnesium Hydroxide 30 - 60 ml 05/21/22 13:05 Magnesium Hydroxide 30 Ml Udcup PO 06/20/22 13:04 QDP PRN CONSTIPATION Metoprolol Tartrate 25 mg 05/21/22 22:00 05/21/22 20:55 Metoprolol Tartrate 25 Mg Tab PO 06/20/22 21:59 25 mg BID STEPHANIE Administration Miscellaneous Information 1 each 05/21/22 16:15 Medication Intervention 1 Each Each 06/20/22 16:14 .RN TO CHECK [facility] Miscellaneous Information 1 each 05/21/22 16:15 Medication Intervention 1 Each Each 06/20/22 16:14 .RN TO CHECK STEPHANIE Morphine Sulfate 2 - 8 mg 05/21/22 14:36 Morphine Sulfate 2 Mg/Ml Inj IV 05/26/22 14:35 PRN PRN PAIN Nitroglycerin 0.4 mg 05/21/22 14:36 Nitroglycerin 0.4 Mg Tablet Bottle SL 06/20/22 14:35 .Q5MIN PRN CHEST PAIN Ondansetron HCl 4 mg 05/21/22 13:05 Ondansetron Hcl 4 Mg/2 Ml Vial IV 06/20/22 13:04 Q4H PRN PRN NAUSEA/VOMITING Oxybutynin Chloride 10 mg 05/21/22 16:00 05/21/22 16:10 Oxybutynin Chloride Xl 5 Mg Tab PO 06/20/22 15:59 10 mg DAILY STEPHANIE Administration Pantoprazole Sodium 40 mg 05/21/22 16:00 05/21/22 16:07 Protonix (Pantoprazole) 40 Mg Tablet PO 06/20/22 15:59 40 mg DAILY STEPHANIE Administration Senna/Docusate Sodium 2 udtab 11/29/22 13:05 Senna/Docusate Sodium 1 Udtab Tablet PO 06/20/22 13:04 BID PRN PRN CONSTIPATION Simvastatin 40 mg 05/21/22 16:00 05/21/22 16:07 Simvastatin 20 Mg Tablet PO 06/20/22 15:59 40 mg DAILY STEPHANIE Administration Spironolactone 25 mg 05/21/22 22:00 05/21/22 20:55 Spironolactone 25 Mg Tablet PO 06/20/22 21:59 25 mg BID STEPHANIE Administration Discontinued Medications Generic Name Dose Route Start Last Admin Trade Name Freq PRN Reason Stop Dose Admin Aspirin 324 mg 05/21/22 09:31 05/21/22 09:58 Aspirin 81 Mg Tab.Chew PO 05/21/22 09:32 324 mg STAT ONE Administration Fentanyl Citrate 50 mcg 05/21/22 09:31 05/21/22 10:35 Fentanyl Citrate 100 Mcg/2 Ml* Vial IV 05/21/22 09:32 50 mcg STAT ONE Administration Fentanyl Citrate Confirm 05/21/22 10:31 Fentanyl Citrate 100 Mcg/2 Ml* Vial Administered 05/21/22 10:32 Dose 100 mcg .ROUTE .STK-MED ONE Nitroglycerin 0.4 mg 05/21/22 09:31 05/21/22 10:09 Nitroglycerin 0.4 Mg (Ed) 0.4 Mg Tab.Subl SL 05/21/22 09:32 0.4 mg STAT ONE Administration Intake & Output (Last 24 hours) 05/19/22 05/20/22 05/21/22 05/22/22 11:59 11:59 11:59 11:59 Intake Total 880 Balance 880 Weight 92.8 kg 92.9 kg Laboratory Results (Last 24 hours) 05/22/22 05/22/22 05/22/22 04:26 04:26 04:26 WBC 7.8 RBC 3.38 L Hgb 10.5 L Hct 33.5 L MCV 99.1 MCH 31.1 MCHC 31.3 L RDW 14.5 H Plt Count 271 MPV 10.6 Gran % 67.5 H Immature Gran % (Auto) 0.4 Nucleat RBC Rel Count 0.0 Eos # (Auto) 0.26 Immature Gran # (Auto) 0.03 Absolute Lymphs (auto) 1.51 Absolute Monos (auto) 0.71 Absolute Nucleated RBC 0.00 Lymphocytes % 19.3 L Monocytes % 9.1 Eosinophils % 3.3 Basophils % 0.4 Absolute Granulocytes 5.28 Basophils # 0.03 PT INR APTT D-Dimer Sodium 139 Potassium 4.7 Chloride 110 H Carbon Dioxide 22 Anion Gap 11.6 BUN 39 H Creatinine 2.28 H Estimated GFR 22.4 Glucose 116 H Lactic Acid Calcium 8.9 Magnesium Total Bilirubin 0.50 AST 104 H ALT 29 Alkaline Phosphatase 113 Troponin I NT-Pro-B Natriuret Pep Serum Total Protein 6.6 Albumin 3.5 Triglycerides 93 Cholesterol 108 LDL Cholesterol 58 HDL Cholesterol 29 L Heart Disease Risk Ratio 3.8 Amylase Lipase Influenza Type A Ag Influenza Type B Ag RSV (PCR) SARS-CoV-2 (PCR) 05/21/22 05/21/22 05/21/22 18:14 13:30 10:01 WBC RBC Hgb Hct MCV MCH MCHC RDW Plt Count MPV Gran % Immature Gran % (Auto) Nucleat RBC Rel Count Eos # (Auto) Immature Gran # (Auto) Absolute Lymphs (auto) Absolute Monos (auto) Absolute Nucleated RBC Lymphocytes % Monocytes % Eosinophils % Basophils % Absolute Granulocytes Basophils # PT INR APTT D-Dimer Sodium Potassium Chloride Carbon Dioxide Anion Gap BUN Creatinine Estimated GFR Glucose Lactic Acid 1.9 Calcium Magnesium Total Bilirubin AST ALT Alkaline Phosphatase Troponin I 12.600 H* 1.770 H* NT-Pro-B Natriuret Pep Serum Total Protein Albumin Triglycerides Cholesterol LDL Cholesterol HDL Cholesterol Heart Disease Risk Ratio Amylase Lipase Influenza Type A Ag Influenza Type B Ag RSV (PCR) SARS-CoV-2 (PCR) 05/21/22 05/21/22 05/21/22 09:50 09:50 09:50 WBC RBC Hgb Hct MCV MCH MCHC RDW Plt Count MPV Gran % Immature Gran % (Auto) Nucleat RBC Rel Count Eos # (Auto) Immature Gran # (Auto) Absolute Lymphs (auto) Absolute Monos (auto) Absolute Nucleated RBC Lymphocytes % Monocytes % Eosinophils % Basophils % Absolute Granulocytes Basophils # PT 11.4 INR 1.08 APTT 24.7 L D-Dimer 1.13 H* Sodium Potassium Chloride Carbon Dioxide Anion Gap BUN Creatinine Estimated GFR Glucose Lactic Acid Calcium Magnesium Total Bilirubin AST ALT Alkaline Phosphatase Troponin I 0.077 H* NT-Pro-B Natriuret Pep Serum Total Protein Albumin Triglycerides Cholesterol LDL Cholesterol HDL Cholesterol Heart Disease Risk Ratio Amylase Lipase Influenza Type A Ag NEGATIVE Influenza Type B Ag NEGATIVE RSV (PCR) NEGATIVE SARS-CoV-2 (PCR) NEGATIVE 05/21/22 05/21/22 09:50 09:50 WBC 7.4 RBC 3.49 L Hgb 10.8 L Hct 34.8 L MCV 99.7 MCH 30.9 MCHC 31.0 L RDW 14.3 H Plt Count 297 MPV 10.8 Gran % 55.8 Immature Gran % (Auto) 0.3 Nucleat RBC Rel Count 0.0 Eos # (Auto) 0.27 Immature Gran # (Auto) 0.02 Absolute Lymphs (auto) 2.12 Absolute Monos (auto) 0.79 Absolute Nucleated RBC 0.00 Lymphocytes % 28.7 Monocytes % 10.7 Eosinophils % 3.7 Basophils % 0.8 Absolute Granulocytes 4.12 Basophils # 0.06 PT INR APTT D-Dimer Sodium 140 Potassium 4.6 Chloride 108 H Carbon Dioxide 20 L Anion Gap 16.8 H BUN 41 H Creatinine 2.43 H Estimated GFR 20.8 Glucose 133 H Lactic Acid Calcium 9.6 Magnesium 1.7 Total Bilirubin 0.40 AST 26 ALT 26 Alkaline Phosphatase 122 Troponin I NT-Pro-B Natriuret Pep 381 Serum Total Protein 7.2 Albumin 4.0 Triglycerides Cholesterol LDL Cholesterol HDL Cholesterol Heart Disease Risk Ratio Amylase 84 Lipase 256 Influenza Type A Ag Influenza Type B Ag RSV (PCR) SARS-CoV-2 (PCR) Orders (Last 24 hours) Category Date Time Status Bedrest with BRP/BSC TOLERATED Activity 05/21/22 14:36 Active Bedrest with BRP/BSC ROUTINE Activity 05/21/22 13:05 Active Up With Assistance ROUTINE Activity 05/21/22 13:07 Active Surgical Supervisor CONTINUOUS Care 05/21/22 14:36 Active Code Status Order ROUTINE Care 05/21/22 13:05 Active EKG-ER Only STAT Care 05/21/22 09:31 Active IV Care Q6H Care 05/21/22 13:05 Active IV Insertion STAT Care 05/21/22 09:31 Active Implement Chest Pain Pathway ROUTINE Care 05/21/22 13:05 Active Implement Chest Pain Pathway ROUTINE Care 05/21/22 14:[address] in Observation ROUTINE Care 05/21/22 13:05 Active [place] Hose, Apply ROUTINE Care 05/21/22 13:05 Active Telemetry q6h Care 05/21/22 14:04 Active Weight,Daily 0600 Care 05/21/22 13:05 Active Weight,Daily 0600 Care 05/21/22 14:36 Completed Heart-Healthy Diet Diet 05/21/22 Dinner Active CHEST 1 VIEW (PORTABLE) Stat Exams 05/21/22 09:32 Completed AMYLASE Stat Lab 05/21/22 09:50 Completed CBC W DIFF AM.LAB Lab 05/22/22 04:26 Completed CBC W DIFF Stat Lab 05/21/22 09:50 Completed CMP AM.LAB Lab 05/22/22 04:26 Completed CMP Stat Lab 05/21/22 09:50 Completed COVID/FLU/RSV Panel Stat Lab 05/21/22 09:50 Completed D-DIMER QUANTITATIVE Stat Lab 05/21/22 09:50 Completed LIPASE Stat Lab 05/21/22 09:50 Completed LIPID PROFILE AM.LAB Lab 05/22/22 04:26 Completed Lactic Acid Stat Lab 05/21/22 10:01 Completed MAGNESIUM Stat Lab 05/21/22 09:50 Completed NT PRO BNP Stat Lab 05/21/22 09:50 Completed PROTIME WITH INR Stat Lab 05/21/22 09:50 Completed PTT Stat Lab 05/21/22 09:50 Completed TROPONIN Q4H Lab 05/21/22 09:50 Completed TROPONIN Q4H Lab 05/21/22 13:30 Completed TROPONIN Q4H Lab 05/21/22 18:14 Completed UA W/RFX CULTURE Stat Lab 05/21/22 14:14 Ordered Acetaminophen 325 mg [Tylenol 325 mg] Med 05/21/22 13:05 Active 650 mg PO Q4H PRN PRN Allopurinol 300 mg [Zyloprim 300 mg] Med 05/21/22 16:00 Active 300 mg PO DAILY Amlodipine Besylate 5 mg [Norvasc 5 mg] Med 05/21/22 16:00 Active 5 mg PO DAILY Aspirin 81 gm Chew [Baby Aspirin 81 mg Chew] Med 05/21/22 09:31 Discontinued 324 mg PO STAT ONE Aspirin EC 81 mg [Ecotrin 81 mg] Med 05/21/22 16:00 Active 81 mg PO DAILY Clopidogrel Bisulfate [PLAVIX Tablet] Med 05/21/22 16:00 Active 75 mg PO DAILY Ezetimibe 10 mg [Zetia 10 MG] Med 05/21/22 22:00 Active 10 mg PO HS Fentanyl Citrate 100 Mcg/2 ml* [Sublimaze 100 Mcg/2 ml* Med 05/21/22 10:31 Discontinued ] 100 mcg .ROUTE .STK-MED ONE Fentanyl Citrate 100 Mcg/2 ml* [Sublimaze 100 Mcg/2 ml* Med 05/21/22 09:31 Discontinued ] 50 mcg IV STAT ONE Fluoxetine HCl 20 mg [Prozac 20 MG] Med 05/21/22 16:00 Active 20 mg PO DAILY Furosemide 20 mg [Lasix 20 mg] Med 05/21/22 16:00 Active 20 mg PO DAILY Gabapentin [Neurontin ] Med 05/21/22 16:00 Active 100 mg PO DAILY Isosorbide Mononitrate 30 mg [Imdur 30 MG] Med 05/21/22 16:00 Active 30 mg PO DAILY Mag Hydrox/Al Hydrox/Simeth [Maalox Es 30 ml Unit Med 05/21/22 13:05 Active Dose] 30 ml PO Q4H PRN PRN Magnesium Hydroxide 30 ml [Milk of Magnesia 30 ml Med 05/21/22 13:05 Active ] 30 - 60 ml PO QDP PRN Medication Intervention Med 05/21/22 16:15 Active 1 each MC .RN TO CHECK Medication Intervention Med 05/21/22 16:15 Active 1 each MC .RN TO CHECK Metoprolol Tartrate 25 mg [Lopressor 25MG Tab] Med 05/21/22 22:00 Active 25 mg PO BID Morphine Sulfate 2 mg Inj Med 05/21/22 14:36 Active 2 - 8 mg IV PRN PRN NaCl 0.9% 1000 ml [Sodium Chloride 0.9% 1000 ML] 1,000 Med 05/21/22 09:45 Active ml IV 50 mls/hr Nitroglycerin 0.4 mg (Ed) [Nitrostat 0.4 MG (ED)] Med 05/21/22 09:31 Discontinued 0.4 mg SL STAT ONE Nitroglycerin 0.4 mg Tablet [Nitrostat 0.4 MG Tablet Med 05/21/22 14:36 Active ] 0.4 mg SL .Q5MIN PRN Ondansetron HCl 4 mg/2 ml [Zofran 4 MG/2 ML VIAL] Med 05/21/22 13:05 Active 4 mg IV Q4H PRN PRN Oxybutynin Chloride Xl 5 mg [Ditropan XL 5 MG] Med 05/21/22 16:00 Active 10 mg PO DAILY PANTOPRAZOLE 40 mg Tablet [Protonix 40MG Tablet] Med 05/21/22 16:00 Active 40 mg PO DAILY Senna/Docusate Sodium Tab [Senokot-S Tablet] Med 05/21/22 13:05 Active 2 udtab PO BID PRN PRN Simvastatin 20Mg [Zocor 20Mg] Med 05/21/22 16:00 Active 40 mg PO DAILY Spironolactone 25 mg [Aldactone 25 MG] Med 05/21/22 22:00 Active 25 mg PO BID EKG DAILY RT 05/23/22 05:00 Active EKG DAILY RT 05/24/22 05:00 Active EKG Q8HX2,QAMX3,PRN RT 05/21/22 13:05 Completed EKG Q8HX2,QAMX3,PRN RT 05/21/22 14:36 Completed EKG REPEAT IN AM RT 05/22/22 05:00 Completed EKG ROUTINE RT 05/21/22 17:30 Completed EKG STAT RT 05/21/22 19:35 Completed Pulse Oximetry Q4H RT 05/21/22 13:05 Completed Patient Care Notes (Last 24 hours) 05/21/22 20:29 Nursing Note by Destiney John dr aware no beds available at [facility] (she requested i check). dr medellin/alyx aware there were no ekg changes. pt remains pain free. 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 (Last 4 hours) Pulse Resp BP Pulse Ox 05/21/22 16:00 68 13 134/68 97 Diagnois, Code Status Diagnosis CHEST PAIN Resucitation Status Full Code Intake and Output 12 Hours 05/21/22 05/22/22 18:59 06:59 Intake Total 240 Balance 240 Weight 92.9 kg Intake: Intake, Oral Amount 240 Other: Number of Voids 1 Physical Assessment Anxiety Level None,at ease,Awake,Calm Mental Status Alert Patient Orientation Person Breath Sounds [Anterior Clear Bilateral] Cardiac Rhythm-[facility] Sinus Rhythm Abdomen Description Soft Urine Appearance Clear Urine Color Yellow Skin Temperature Warm Pain Scale (Last 12 Hours) Pain Intensity 0 Pain Intensity 0 Pain Intensity 1 Pain Intensity 1 Pain Intensity 1 Pain Intensity 1 Pain Intensity 1 Pain Intensity 5 Pain Intensity 7 Pain Intensity 8 Pain Intensity 8 Pain Intensity 8 PAST MEDICAL HISTORY Neurological History TIA Endocrine Medical History No Pertinent History Respiratory History No Pertinent History Cardiac History Coronary Artery Disease,Hypertension Comment POLCYSTIC KIDNEY DISEASE Diet Order (Last 12 Hours) 05/21/22 Dinner Heart-Healthy Diet Lab Results (Last 12 Hours) 05/21/22 05/21/22 05/21/22 Range/Units 18:14 13:30 10:01 WBC (4.0-10.5) x10^3/uL RBC (4.1-5.4) x10^6/uL Hgb (12.0-16.0) g/dL Hct (35-47) % MCV (78-100) fL MCH (26-32) pg MCHC (32-36) g/dL RDW (11.5-14.0) % Plt Count (150-450) x10^3/uL MPV (7.5-11.0) fL Gran % (36.0-66.0) % Immature Gran % (Auto) (0.00-0.4) % Nucleat RBC Rel Count (0.00-0.1) % Eos # (Auto) (0-0.5) x10^3/uL Immature Gran # (Auto) (0.00-0.03) x10^3u/L Absolute Lymphs (auto) (1.0-4.6) x10^3/uL Absolute Monos (auto) (0.0-1.3) x10^3/uL Absolute Nucleated RBC (0.00-0.01) x10^3u/L Lymphocytes % (24.0-44.0) % Monocytes % (0.0-12.0) % Eosinophils % (0.00-5.0) % Basophils % (0.0-0.4) % Absolute Granulocytes (1.4-6.9) x10^3/uL Basophils # (0-0.4) x10^3/uL PT (9.4-12.5) SECONDS INR (0.8-3.0) APTT (25.1-36.5) SECONDS D-Dimer (0.0-0.50) mg/L Sodium (137-145) mmol/L Potassium (3.5-5.1) mmol/L Chloride (98-107) mmol/L Carbon Dioxide (22-30) mmol/L Anion Gap (5-15) MEQ/L BUN (7-17) mg/dL Creatinine (0.52-1.04) mg/dL Estimated GFR ML/MIN Glucose (74-106) mg/dL Lactic Acid 1.9 (0.4-2.0) Calcium (8.4-10.2) mg/dL Magnesium (1.6-2.3) mg/dL Total Bilirubin (0.2-1.3) mg/dL AST (14-36) U/L ALT (0-35) U/L Alkaline Phosphatase (38-126) U/L Troponin I 12.600 H* 1.770 H* (0.000-0.034) ng/mL NT-Pro-B Natriuret Pep (0-900) pg/mL Serum Total Protein (6.3-8.2) g/dL Albumin (3.5-5.0) g/dL Amylase (30-110) U/L Lipase (23-300) U/L Influenza Type A Ag (NEGATIVE) Influenza Type B Ag (NEGATIVE) RSV (PCR) (Negative) SARS-CoV-2 (PCR) (NEGATIVE) 05/21/22 05/21/22 05/21/22 Range/Units 09:50 09:50 09:50 WBC (4.0-10.5) x10^3/uL RBC (4.1-5.4) x10^6/uL Hgb (12.0-16.0) g/dL Hct (35-47) % MCV (78-100) fL MCH (26-32) pg MCHC (32-36) g/dL RDW (11.5-14.0) % Plt Count (150-450) x10^3/uL MPV (7.5-11.0) fL Gran % (36.0-66.0) % Immature Gran % (Auto) (0.00-0.4) % Nucleat RBC Rel Count (0.00-0.1) % Eos # (Auto) (0-0.5) x10^3/uL Immature Gran # (Auto) (0.00-0.03) x10^3u/L Absolute Lymphs (auto) (1.0-4.6) x10^3/uL Absolute Monos (auto) (0.0-1.3) x10^3/uL Absolute Nucleated RBC (0.00-0.01) x10^3u/L Lymphocytes % (24.0-44.0) % Monocytes % (0.0-12.0) % Eosinophils % (0.00-5.0) % Basophils % (0.0-0.4) % Absolute Granulocytes (1.4-6.9) x10^3/uL Basophils # (0-0.4) x10^3/uL PT 11.4 (9.4-12.5) SECONDS INR 1.08 (0.8-3.0) APTT 24.7 L (25.1-36.5) SECONDS D-Dimer 1.13 H* (0.0-0.50) mg/L Sodium (137-145) mmol/L Potassium (3.5-5.1) mmol/L Chloride (98-107) mmol/L Carbon Dioxide (22-30) mmol/L Anion Gap (5-15) MEQ/L BUN (7-17) mg/dL Creatinine (0.52-1.04) mg/dL Estimated GFR ML/MIN Glucose (74-106) mg/dL Lactic Acid (0.4-2.0) Calcium (8.4-10.2) mg/dL Magnesium (1.6-2.3) mg/dL Total Bilirubin (0.2-1.3) mg/dL AST (14-36) U/L ALT (0-35) U/L Alkaline Phosphatase (38-126) U/L Troponin I 0.077 H* (0.000-0.034) ng/mL NT-Pro-B Natriuret Pep (0-900) pg/mL Serum Total Protein (6.3-8.2) g/dL Albumin (3.5-5.0) g/dL Amylase (30-110) U/L Lipase (23-300) U/L Influenza Type A Ag NEGATIVE (NEGATIVE) Influenza Type B Ag NEGATIVE (NEGATIVE) RSV (PCR) NEGATIVE (Negative) SARS-CoV-2 (PCR) NEGATIVE (NEGATIVE) 05/21/22 05/21/22 Range/Units 09:50 09:50 WBC 7.4 (4.0-10.5) x10^3/uL RBC 3.49 L (4.1-5.4) x10^6/uL Hgb 10.8 L (12.0-16.0) g/dL Hct 34.8 L (35-47) % MCV 99.7 (78-100) fL MCH 30.9 (26-32) pg MCHC 31.0 L (32-36) g/dL RDW 14.3 H (11.5-14.0) % Plt Count 297 (150-450) x10^3/uL MPV 10.8 (7.5-11.0) fL Gran % 55.8 (36.0-66.0) % Immature Gran % (Auto) 0.3 (0.00-0.4) % Nucleat RBC Rel Count 0.0 (0.00-0.1) % Eos # (Auto) 0.27 (0-0.5) x10^3/uL Immature Gran # (Auto) 0.02 (0.00-0.03) x10^3u/L Absolute Lymphs (auto) 2.12 (1.0-4.6) x10^3/uL Absolute Monos (auto) 0.79 (0.0-1.3) x10^3/uL Absolute Nucleated RBC 0.00 (0.00-0.01) x10^3u/L Lymphocytes % 28.7 (24.0-44.0) % Monocytes % 10.7 (0.0-12.0) % Eosinophils % 3.7 (0.00-5.0) % Basophils % 0.8 (0.0-0.4) % Absolute Granulocytes 4.12 (1.4-6.9) x10^3/uL Basophils # 0.06 (0-0.4) x10^3/uL PT (9.4-12.5) SECONDS INR (0.8-3.0) APTT (25.1-36.5) SECONDS D-Dimer (0.0-0.50) mg/L Sodium 140 (137-145) mmol/L Potassium 4.6 (3.5-5.1) mmol/L Chloride 108 H (98-107) mmol/L Carbon Dioxide 20 L (22-30) mmol/L Anion Gap 16.8 H (5-15) MEQ/L BUN 41 H (7-17) mg/dL Creatinine 2.43 H (0.52-1.04) mg/dL Estimated GFR 20.8 ML/MIN Glucose 133 H (74-106) mg/dL Lactic Acid (0.4-2.0) Calcium 9.6 (8.4-10.2) mg/dL Magnesium 1.7 (1.6-2.3) mg/dL Total Bilirubin 0.40 (0.2-1.3) mg/dL AST 26 (14-36) U/L ALT 26 (0-35) U/L Alkaline Phosphatase 122 (38-126) U/L Troponin I (0.000-0.034) ng/mL NT-Pro-B Natriuret Pep 381 (0-900) pg/mL Serum Total Protein 7.2 (6.3-8.2) g/dL Albumin 4.0 (3.5-5.0) g/dL Amylase 84 (30-110) U/L Lipase 256 (23-300) U/L Influenza Type A Ag (NEGATIVE) Influenza Type B Ag (NEGATIVE) RSV (PCR) (Negative) SARS-CoV-2 (PCR) (NEGATIVE) Lactic Acid (Last 12 Hours) 05/21/22 10:01 Lactic Acid 1.9 Orders (Last 12 Hours) Category Date Time Status Bedrest with BRP/BSC TOLERATED Activity 05/21/22 14:36 Active Bedrest with BRP/BSC ROUTINE Activity 05/21/22 13:05 Active Up With Assistance ROUTINE Activity 05/21/22 13:07 Active Surgical Supervisor CONTINUOUS Care 05/21/22 14:36 Active Code Status Order ROUTINE Care 05/21/22 13:05 Active EKG-ER Only STAT Care 05/21/22 09:31 Active IV Care Q6H Care 05/21/22 13:05 Active IV Insertion STAT Care 05/21/22 09:31 Active Implement Chest Pain Pathway ROUTINE Care 05/21/22 13:05 Active Implement Chest Pain Pathway ROUTINE Care 05/21/22 14:[address] in Observation ROUTINE Care 05/21/22 13:05 Active Shelton Blandon, Apply ROUTINE Care 05/21/22 13:05 Active Telemetry q6h Care 05/21/22 14:04 Active Weight,Daily 0600 Care 05/21/22 13:05 Active Weight,Daily 0600 Care 05/21/22 14:36 Active Heart-Healthy Diet Diet 05/21/22 Dinner Active CBC W DIFF AM.LAB Lab 05/22/22 04:00 Ordered CMP AM.LAB Lab 05/22/22 04:00 Ordered LIPID PROFILE AM.LAB Lab 05/22/22 04:00 Ordered UA W/RFX CULTURE Stat Lab 05/21/22 14:14 Ordered Acetaminophen 325 mg [Tylenol 325 mg] Med 05/21/22 13:05 Active 650 mg PO Q4H PRN PRN Allopurinol 300 mg [Zyloprim 300 mg] Med 05/21/22 16:00 Active 300 mg PO DAILY Amlodipine Besylate 5 mg [Norvasc 5 mg] Med 05/21/22 16:00 Active 5 mg PO DAILY Aspirin EC 81 mg [Ecotrin 81 mg] Med 05/21/22 16:00 Active 81 mg PO DAILY Clopidogrel Bisulfate [PLAVIX Tablet] Med 05/21/22 16:00 Active 75 mg PO DAILY Ezetimibe 10 mg [Zetia 10 MG] Med 05/21/22 22:00 Active 10 mg PO HS Fluoxetine HCl 20 mg [Prozac 20 MG] Med 05/21/22 16:00 Active 20 mg PO DAILY Furosemide 20 mg [Lasix 20 mg] Med 05/21/22 16:00 Active 20 mg PO DAILY Gabapentin [Neurontin ] Med 05/21/22 16:00 Active 100 mg PO DAILY Isosorbide Mononitrate 30 mg [Imdur 30 MG] Med 05/21/22 16:00 Active 30 mg PO DAILY Mag Hydrox/Al Hydrox/Simeth [Maalox Es 30 ml Unit Med 05/21/22 13:05 Active Dose] 30 ml PO Q4H PRN PRN Magnesium Hydroxide 30 ml [Milk of Magnesia 30 ml Med 05/21/22 13:05 Active ] 30 - 60 ml PO QDP PRN Medication Intervention Med 05/21/22 16:15 Active 1 each MC .RN TO CHECK Medication Intervention Med 05/21/22 16:15 Active 1 each MC .RN TO CHECK Metoprolol Tartrate 25 mg [Lopressor 25MG Tab] Med 05/21/22 22:00 Active 25 mg PO BID Morphine Sulfate 2 mg Inj Med 05/21/22 14:36 Active 2 - 8 mg IV PRN PRN NaCl 0.9% 1000 ml [Sodium Chloride 0.9% 1000 ML] 1,000 Med 05/21/22 09:45 Active ml IV 50 mls/hr Nitroglycerin 0.4 mg Tablet [Nitrostat 0.4 MG Tablet Med 05/21/22 14:36 Active ] 0.4 mg SL .Q5MIN PRN Ondansetron HCl 4 mg/2 ml [Zofran 4 MG/2 ML VIAL] Med 05/21/22 13:05 Active 4 mg IV Q4H PRN PRN Oxybutynin Chloride Xl 5 mg [Ditropan XL 5 MG] Med 05/21/22 16:00 Active 10 mg PO DAILY PANTOPRAZOLE 40 mg Tablet [Protonix 40MG Tablet] Med 05/21/22 16:00 Active 40 mg PO DAILY Senna/Docusate Sodium Tab [Senokot-S Tablet] Med 05/21/22 13:05 Active 2 udtab PO BID PRN PRN Simvastatin 20Mg [Zocor 20Mg] Med 05/21/22 16:00 Active 40 mg PO DAILY Spironolactone 25 mg [Aldactone 25 MG] Med 05/21/22 22:00 Active 25 mg PO BID EKG DAILY RT 05/23/22 05:00 Active EKG DAILY RT 05/24/22 05:00 Active EKG REPEAT IN AM RT 05/22/22 05:00 Active Active Visit Medications Generic Name Dose Route Start Last Admin Trade Name Freq PRN Reason Stop Dose Admin Acetaminophen 650 mg 05/21/22 13:05 Acetaminophen 325 Mg Tablet PO 06/20/22 13:04 Q4H PRN PRN PAIN AND/OR FEVER Al Hydrox/Mg Hydrox/Simethicone 30 ml 05/21/22 13:05 Mag Hydrox/Al Hydrox/Simeth 30 Ml Udcup PO 06/20/22 13:04 Q4H PRN PRN INDIGESTION Allopurinol 300 mg 05/21/22 16:00 05/21/22 16:07 Allopurinol 300 Mg Tablet PO 06/20/22 15:59 300 mg DAILY STEPHANIE Administration Amlodipine Besylate 5 mg 05/21/22 16:00 05/21/22 16:07 Amlodipine Besylate 5 Mg Tablet PO 06/20/22 15:59 5 mg DAILY STEPHANIE Administration Aspirin 81 mg 05/21/22 16:00 05/21/22 16:07 Aspirin 81 Mg Tablet.Ec PO 06/20/22 15:59 81 mg DAILY STEPHANIE Administration Clopidogrel Bisulfate 75 mg 05/21/22 16:00 05/21/22 16:07 Clopidogrel Bisulfate 75 Mg Tablet PO 06/20/22 15:59 75 mg DAILY STEPHANIE Administration Ezetimibe 10 mg 05/21/22 22:00 Ezetimibe 10 Mg Tab PO 06/20/22 21:59 HS STEPHANIE Fluoxetine HCl 20 mg 05/21/22 16:00 05/21/22 16:07 Fluoxetine Hcl 20 Mg Cap PO 06/20/22 15:59 20 mg DAILY STEPHANIE Administration Furosemide 20 mg 05/21/22 16:00 05/21/22 16:07 Furosemide 20 Mg Tablet PO 06/20/22 15:59 20 mg DAILY STEPHANIE Administration Gabapentin 100 mg 05/21/22 16:00 05/21/22 16:07 Gabapentin 100 Mg Capsule PO 06/20/22 15:59 100 mg DAILY STEPHANIE Administration Sodium Chloride 1,000 mls @ 50 mls/hr 05/21/22 09:45 05/21/22 10:10 Sodium Chloride 0.9% 1000 Ml IV 06/20/22 09:44 50 mls/hr .Q20H STEPHANIE Administration Isosorbide Mononitrate 30 mg 05/21/22 16:00 05/21/22 16:07 Isosorbide Mononitrate 30 Mg Tab PO 06/20/22 15:59 30 mg DAILY STEPHANIE Administration Magnesium Hydroxide 30 - 60 ml 05/21/22 13:05 Magnesium Hydroxide 30 Ml Udcup PO 06/20/22 13:04 QDP PRN CONSTIPATION Metoprolol Tartrate 25 mg 05/21/22 22:00 Metoprolol Tartrate 25 Mg Tab PO 06/20/22 21:59 BID STEPHANIE Miscellaneous Information 1 each 05/21/22 16:15 Medication Intervention 1 Each Each 06/20/22 16:14 .RN TO CHECK [facility] Miscellaneous Information 1 each 05/21/22 16:15 Medication Intervention 1 Each Each 06/20/22 16:14 .RN TO CHECK STEPHANIE Morphine Sulfate 2 - 8 mg 05/21/22 14:36 Morphine Sulfate 2 Mg/Ml Inj IV 05/26/22 14:35 PRN PRN PAIN Nitroglycerin 0.4 mg 05/21/22 14:36 Nitroglycerin 0.4 Mg Tablet Bottle SL 06/20/22 14:35 .Q5MIN PRN CHEST PAIN Ondansetron HCl 4 mg 05/21/22 13:05 Ondansetron Hcl 4 Mg/2 Ml Vial IV 06/20/22 13:04 Q4H PRN PRN NAUSEA/VOMITING Oxybutynin Chloride 10 mg 05/21/22 16:00 05/21/22 16:10 Oxybutynin Chloride Xl 5 Mg Tab PO 06/20/22 15:59 10 mg DAILY STEPHANIE Administration Pantoprazole Sodium 40 mg 05/21/22 16:00 05/21/22 16:07 Protonix (Pantoprazole) 40 Mg Tablet PO 06/20/22 15:59 40 mg DAILY STEPHANIE Administration Senna/Docusate Sodium 2 udtab 05/21/22 13:05 Senna/Docusate Sodium 1 Udtab Tablet PO 06/20/22 13:04 BID PRN PRN CONSTIPATION Simvastatin 40 mg 05/21/22 16:00 05/21/22 16:07 Simvastatin 20 Mg Tablet PO 06/20/22 15:59 40 mg DAILY STEPHANIE Administration Spironolactone 25 mg 05/21/22 22:00 Spironolactone 25 Mg Tablet PO 06/20/22 21:59 BID [facility] Home Medications Medication Instructions Recorded Confirmed Last Taken Type Febuxostat [Uloric] 80 mg PO DAILY 05/21/22 05/21/22 05/20/22 History Isosorbide Mononitrate 30 mg 30 mg PO DAILY 05/21/22 05/21/22 05/20/22 History [Imdur 30 MG] Initialized on 05/21/22 19:30 - END OF NOTE (2) Non-ST elevation PR (NSTEMI) Current Visit: No Status: Acute Code(s): I21.4 - NON-ST ELEVATION (NSTEMI) MYOCARDIAL INFARCTION
[2022-05-22] MEDS: Neurontin PO SCH (09:20)
[2022-05-22] MEDS: LASIX 20 MG PO SCH (09:20)
[2022-05-22] MEDS: NORVASC 5 MG PO SCH (09:20)
[2022-05-22] MEDS: ZOCOR 20MG PO SCH (09:20)
[2022-05-22] MEDS: ECOTRIN 81 MG PO SCH (09:20)
[2022-05-22] MEDS: Prozac 20 MG PO SCH (09:20)
[2022-05-22] MEDS: PLAVIX Tablet PO SCH (09:20)
[2022-05-22] MEDS: Ditropan XL 5 MG PO SCH (09:20)
[2022-05-22] MEDS: ZYLOPRIM 300 MG PO SCH (09:20)
[2022-05-22] MEDS: Protonix 40MG Tablet PO SCH (09:20)
[2022-05-22] MEDS: Imdur 30 MG PO SCH (09:21)
[2022-05-22] MEDS: Lopressor 25MG Tab PO SCH (09:21)
[2022-05-22] MEDS: Aldactone 25 MG PO SCH (09:25)
[2022-05-22] MEDS ORDERED: NON-FORMULARY ITEM (Lansoprazole [Lansoprazole] 30 MG Capsule.Dr) PO SCH (10:00)
[2022-05-22] MEDS ORDERED: PARICALCITOL 1 MCG PO SCH (10:00)
[2022-05-22] MEDS ORDERED: NON-FORMULARY ITEM (Atorvastatin Calcium [Lipitor] 10 MG Tablet) PO SCH (10:00)
[2022-05-22] MEDS ORDERED: FEBUXOSTAT 80 MG PO SCH (10:00)
[2022-05-22] MEDS ORDERED: TOLTERODINE TARTRATE 4 MG PO SCH (10:00)
[2022-05-22] MEDS: Sodium Chloride 0.9% 1000 ML 1,000 ML IV SCH (10:10)
[2022-05-22 11:27] VITALS: BP 103/63; PULSE 56; O2SAT 95
[2022-05-22 12:00] LABS: Appearance CLEAR (CLEAR); Bilirubin NEGATIVE (NEGATIVE); Glucose NEGATIVE (NEGATIVE); Ketones NEGATIVE (NEGATIVE); Ph 5.5 (5-6); Protein,Urine Dip NEGATIVE (Negative); RBC NEGATIVE Ery/ul (0-5); Specific Gravity >=1.030 (1.005-1.025); Urobilinogen 0.2 mg/dL (0-1)
[2022-05-22 12:01] LABS: Dipstick done @ ? MAIN LAB; Nitrite NEGATIVE (NEGATIVE)
[2022-05-22 12:14] LABS: Epithelial Cells RARE /HPF (FEW); Mucus SLIGHT /HPF (NEGATIVE); RBC 0-2 /HPF (0-2); WBC 0-2 /HPF (0-5)
[2022-05-22 12:15] LABS: Urine Cultured Indicated? NO
--- NOTE | 2022-05-24 07:52 | PCM.DS ---
Discharge Summary Date of Admission: 05/21/22 14:04 Admitting Physician: CHERYL ANGELA Consults: Consults on Case 05/22/22 11:37 Consult Nephrology ROUTINE Primary Care Provider: CHERYL ANGELA Allergies Allergies Penicillins Allergy (Verified 05/21/22 09:43) Hospital Summary - Hospital Course Hospital Course: Chief Complaint Diagnosis CHEST PAIN for 2-3 days Allergies Allergy/AdvReac Type Severity Reaction Status Date / Time Penicillins Allergy Verified 05/21/22 09:43 Home Medications Medication Instructions Recorded Confirmed Last Taken Type Febuxostat [Uloric] 80 mg PO DAILY 05/21/22 05/21/22 05/20/22 History Isosorbide Mononitrate 30 mg 30 mg PO DAILY 05/21/22 05/21/22 05/20/22 History [Imdur 30 MG] Current Medications Discontinued Medications Generic Name Dose Route Start Last Admin Trade Name Freq PRN Reason Stop Dose Admin Acetaminophen 650 mg 05/21/22 13:05 Acetaminophen 325 Mg Tablet PO 06/20/22 13:04 Q4H PRN PRN PAIN AND/OR FEVER Al Hydrox/Mg Hydrox/Simethicone 30 ml 05/21/22 13:05 Mag Hydrox/Al Hydrox/Simeth 30 Ml Udcup PO 06/20/22 13:04 Q4H PRN PRN INDIGESTION Allopurinol 300 mg 05/21/22 16:00 05/22/22 09:20 Allopurinol 300 Mg Tablet PO 06/20/22 15:59 300 mg DAILY STEPHANIE Administration Amlodipine Besylate 5 mg 05/21/22 16:00 05/22/22 09:20 Amlodipine Besylate 5 Mg Tablet PO 06/20/22 15:59 5 mg DAILY STEPHANIE Administration Aspirin 324 mg 05/21/22 09:31 05/21/22 09:58 Aspirin 81 Mg Tab.Chew PO 05/21/22 09:32 324 mg STAT ONE Administration Aspirin 81 mg 05/21/22 16:00 05/22/22 09:20 Aspirin 81 Mg Tablet.Ec PO 06/20/22 15:59 81 mg DAILY STEPHANIE Administration Clopidogrel Bisulfate 75 mg 05/21/22 16:00 05/22/22 09:20 Clopidogrel Bisulfate 75 Mg Tablet PO 06/20/22 15:59 75 mg DAILY STEPHANIE Administration Ezetimibe 10 mg 05/21/22 22:00 05/21/22 20:55 Ezetimibe 10 Mg Tab PO 06/20/22 21:59 10 mg HS STEPHANIE Administration Fentanyl Citrate 50 mcg 05/21/22 09:31 05/21/22 10:35 Fentanyl Citrate 100 Mcg/2 Ml* Vial IV 05/21/22 09:32 50 mcg STAT ONE Administration Fentanyl Citrate Confirm 05/21/22 10:31 Fentanyl Citrate 100 Mcg/2 Ml* Vial Administered 05/21/22 10:32 Dose 100 mcg .ROUTE .STK-MED ONE Fluoxetine HCl 20 mg 05/21/22 16:00 05/22/22 09:20 Fluoxetine Hcl 20 Mg Cap PO 06/20/22 15:59 20 mg DAILY STEPHANIE Administration Furosemide 20 mg 05/21/22 16:00 05/22/22 09:20 Furosemide 20 Mg Tablet PO 06/20/22 15:59 20 mg DAILY STEPHANIE Administration Gabapentin 100 mg 05/21/22 16:00 05/22/22 09:20 Gabapentin 100 Mg Capsule PO 06/20/22 15:59 100 mg DAILY STEPHANIE Administration Sodium Chloride 1,000 mls @ 50 mls/hr 05/21/22 09:45 05/22/22 10:10 Sodium Chloride 0.9% 1000 Ml IV 06/20/22 09:44 Not Given .Q20H STEPHANIE Isosorbide Mononitrate 30 mg 05/21/22 16:00 05/22/22 09:21 Isosorbide Mononitrate 30 Mg Tab PO 06/20/22 15:59 30 mg DAILY STEPHANIE Administration Magnesium Hydroxide 30 - 60 ml 05/21/22 13:05 Magnesium Hydroxide 30 Ml Udcup PO 06/20/22 13:04 QDP PRN CONSTIPATION Metoprolol Tartrate 25 mg 05/21/22 22:00 05/22/22 09:21 Metoprolol Tartrate 25 Mg Tab PO 06/20/22 21:59 25 mg BID STEPHANIE Administration Miscellaneous Information 1 each 05/21/22 16:15 Medication Intervention 1 Each Each 06/20/22 16:14 .RN TO CHECK STEPHANIE Miscellaneous Information 1 each 05/21/22 16:15 Medication Intervention 1 Each Each 06/20/22 16:14 .RN TO CHECK STEPHANIE Morphine Sulfate 2 - 8 mg 05/21/22 14:36 Morphine Sulfate 2 Mg/Ml Inj IV 05/26/22 14:35 PRN PRN PAIN Nitroglycerin 0.4 mg 05/21/22 09:31 05/21/22 10:09 Nitroglycerin 0.4 Mg (Ed) 0.4 Mg Tab.Subl SL 05/21/22 09:32 0.4 mg STAT ONE Administration Nitroglycerin 0.4 mg 05/21/22 14:36 Nitroglycerin 0.4 Mg Tablet Bottle SL 06/20/22 14:35 .Q5MIN PRN CHEST PAIN Ondansetron HCl 4 mg 05/21/22 13:05 Ondansetron Hcl 4 Mg/2 Ml Vial IV 06/20/22 13:04 Q4H PRN PRN NAUSEA/VOMITING Oxybutynin Chloride 10 mg 05/21/22 16:00 05/22/22 09:20 Oxybutynin Chloride Xl 5 Mg Tab PO 06/20/22 15:59 10 mg DAILY STEPHANIE Administration Pantoprazole Sodium 40 mg 05/21/22 16:00 05/22/22 09:20 Protonix (Pantoprazole) 40 Mg Tablet PO 06/20/22 15:59 40 mg DAILY STEPHANIE Administration Senna/Docusate Sodium 2 udtab 05/21/22 13:05 Senna/Docusate Sodium 1 Udtab Tablet PO 06/20/22 13:04 BID PRN PRN CONSTIPATION Simvastatin 40 mg 05/21/22 16:00 05/22/22 09:20 Simvastatin 20 Mg Tablet PO 06/20/22 15:59 40 mg DAILY STEPHANIE Administration Spironolactone 25 mg 05/21/22 22:00 05/22/22 09:25 Spironolactone 25 Mg Tablet PO 06/20/22 21:59 25 mg BID STEPHANIE Administration Intake & Output (Last 24 hours) 05/21/22 05/22/22 05/23/22 05/24/22 11:59 11:59 11:59 11:59 Intake Total 880 Balance 880 Weight 92.8 kg 92.9 kg Orders (Last 24 hours) Category Date Time Status EKG DAILY RT 05/24/22 05:00 Completed - Vitals & Intake/Output Vital Signs: Vital Signs Temperature 98.0 F 05/22/22 11:27 Pulse Rate 56 L 05/22/22 11:44 Respiratory Rate 16 05/22/22 11:27 Blood Pressure 103/63 05/22/22 11:27 O2 Sat by Pulse Oximetry 95 05/22/22 11:27 Intake & Output: Intake & Output 05/21/22 05/22/22 05/23/22 05/24/22 11:59 11:59 11:59 11:59 Intake Total 880 Balance 880 Weight 92.8 kg 92.9 kg - Lab Result Diagrams: 05/22/22 04:26 05/22/22 04:26 - Procedures and Test Procedures and Tests throughout Hospitalization: Therapy Orders & Screens 05/21/22 13:05 EKG Q8HX2,QAMX3,PRN Comment: 05/21/22 14:36 EKG Q8HX2,QAMX3,PRN Comment: Diagnosis: CHEST PAIN 05/21/22 17:30 EKG ROUTINE Comment: Diagnosis: CHEST PAIN 05/21/22 19:35 EKG STAT Comment: Diagnosis: CHEST PAIN 05/22/22 05:00 EKG REPEAT IN AM Comment: Diagnosis: CHEST PAIN 05/23/22 05:00 EKG DAILY Comment: Diagnosis: CHEST PAIN 05/24/22 05:00 EKG DAILY Comment: Diagnosis: CHEST PAIN Discharge Exam General Appearance: no apparent distress, alert Neurologic Exam: alert, oriented x 3, cooperative, normal mood/affect, nml cerebellar function, sensation nml, No motor deficits Eye Exam: PERRL, EOMI, eyes nml inspection Ears, Nose, Throat Exam: normal ENT inspection, pharynx normal, moist mucous membranes Neck Exam: normal inspection, non-tender, supple, full range of motion Respiratory Exam: normal breath sounds, lungs clear, No respiratory distress Cardiovascular Exam: regular rate/rhythm, normal heart sounds Gastrointestinal/Abdomen Exam: soft, No tenderness, No mass Pelvic Exam: deferred Rectal Exam: deferred Back Exam: normal inspection, normal range of motion, No CVA tenderness, No vertebral tenderness Extremity Exam: normal inspection, normal range of motion Skin Exam: normal color, warm, dry Final Diagnosis/Problem List - Final Discharge Diagnosis/Problem (1) Unstable angina Status: Acute (2) Non-ST elevation UT (NSTEMI) Status: Acute Code(s): I21.4 - NON-ST ELEVATION (NSTEMI) MYOCARDIAL INFARCTION - Discharge Discharge Date: 05/22/22 Disposition: DC TO [facility] Condition: Stable Prescriptions: No Action Spironolactone 25 mg PO BID Paricalcitol [Zemplar] 1 mcg PO DAILY Tolterodine Tartrate [Detrol LA] 4 mg PO DAILY Fluoxetine HCl 20 mg PO DAILY Clopidogrel Bisulfate [PLAVIX Tablet] 75 mg PO DAILY Aspirin [Aspirin EC] 81 mg PO DAILY Furosemide 20 mg [Lasix 20 mg] 20 mg PO DAILY Atorvastatin Calcium [Lipitor] 80 mg PO DAILY Lansoprazole 30 mg PO DAILY Amlodipine Besylate 5 mg PO DAILY Allopurinol 300 mg [Zyloprim 300 mg] 300 mg PO DAILY Ezetimibe 10 mg [Zetia 10 MG] 10 mg PO HS Gabapentin [Neurontin ] 100 mg PO DAILY Metoprolol Tartrate 25 mg [Lopressor 25MG Tab] 25 mg PO BID Isosorbide Mononitrate 30 mg [Imdur 30 MG] 30 mg PO DAILY Febuxostat [Uloric] 80 mg PO DAILY Follow up with: PIPPA LOWE [CONSULTING PHYSICIAN] - WILIAN DICKSON [CONSULTING PHYSICIAN] -
== END 2022-05-22 13:20 | disposition home or self-care (01) ==
LOC: ED 09:29 → ICU 14:04
PROVIDERS: ADMIT General Practice; ATTEND General Practice
DX: I21.4 Non-ST elevation (NSTEMI) myocardial infarction (principal); I10 Essential (primary) hypertension; Z79.01 Long term (current) use of anticoagulants; Z79.899 Other long term (current) drug therapy; Z20.828 Contact with and (suspected) exposure to other viral communicable diseases
CPT/HCPCS: 0241U; 36000; 36415; 71045; 80053; 80061; 81015; 82150; 83605; 83690; 83721; 83735; 83880; 84484; 85025; 85379; 85610; 85730; 93005; 93268; 96374; 99285; G0378; J3010; A9270-GY

== ENCOUNTER 2023-07-25 22:59 | Emergency (ER) | payer MEDICARE, OTHER ==
[2023-07-25 23:26] VITALS: TEMP 98.4
--- NOTE | 2023-07-25 23:36 | ERPHSYRPT ---
- History of Present Illness Time Seen by Provider: 07/25/23 23:10 Historian: patient Exam Limitations: no limitations Physician History: 73 years old female with past medical history of coronary artery disease status post CABG x 4 vessels back in 2016 and a stent placed a year ago, both at [facility] in [place] The patient also has a history of recently diagnosed right breast cancer treated with chemotherapy. The patient had her first chemo a few weeks ago. The patient is presenting to the emergency room complaining of bilateral arm pain that started couple of hours prior to arrival to the emergency room and while at rest. She took 1 nitroglycerin and that gave her some relief. The patient is not sure if her arm pain is secondary to the Neupogen shot that she got few days ago. She has been having generalized muscle aches after the Neupogen shot. At present she denies any chest pain or shortness of breath. No abdominal pain nausea or vomiting. She takes 1 baby aspirin and Plavix on a daily basis. Aspirin Treatment Today: 81 mg x 2 Allergies/Adverse Reactions: Penicillins Allergy (Verified 07/25/23 23:03) Rash Home Medications: Clopidogrel Bisulfate [PLAVIX Tablet] 75 mg PO DAILY 12/10/15 [History] Fluoxetine HCl 20 mg PO DAILY 12/10/15 [History] Paricalcitol [Zemplar] 1 mcg PO DAILY 12/10/15 [History] Spironolactone 25 mg PO BID 12/10/15 [History] Tolterodine Tartrate [Detrol LA] 4 mg PO DAILY 12/10/15 [History] Amlodipine Besylate 5 mg PO DAILY 06/10/17 [History] Aspirin [Aspirin EC] 81 mg PO DAILY 06/10/17 [History] Atorvastatin Calcium [Lipitor] 80 mg PO DAILY 06/10/17 [History] Furosemide 20 mg [Lasix 20 mg] 20 mg PO DAILY 06/10/17 [History] Lansoprazole 30 mg PO DAILY 06/10/17 [History] Allopurinol 300 mg [Zyloprim 300 mg] 300 mg PO DAILY 05/03/22 [History] Ezetimibe 10 mg [Zetia 10 MG] 10 mg PO HS 05/03/22 [History] Gabapentin [Neurontin ] 100 mg PO DAILY 05/03/22 [History] Metoprolol Tartrate 25 mg [Lopressor 25MG Tab] 25 mg PO BID 05/03/22 [History] Febuxostat [Uloric] 80 mg PO DAILY 05/21/22 [History] Isosorbide Mononitrate 30 mg [Imdur 30 MG] 30 mg PO DAILY 05/21/22 [History] Hx Tetanus, Diphtheria Vaccination/Date Given: Yes (UP TO DATE) Hx Influenza Vaccination/Date Given: Yes Hx Pneumococcal Vaccination/Date Given: Yes Travel Risk - Vaccine Status Have you recieved a Covid-19 vaccination: Yes Manager Analytical: Who@ - Vaccination Dates Date of 2cond Vaccination (if applicable): 2020 - Review of Systems Constitutional: No Fever, No Chills Eyes: No Symptoms Ears, Nose, & Throat: No Symptoms Respiratory: No Cough, No Dyspnea Cardiac: No Chest Pain, No Edema, No Syncope Abdominal/Gastrointestinal: No Abdominal Pain, No Nausea, No Vomiting, No Diarrhea Genitourinary Symptoms: No Dysuria Musculoskeletal: Other (Pain to both upper extremities), No Back Pain, No Neck Pain Skin: No Rash Neurological: No Dizziness, No Focal Weakness, No Sensory Changes Psychological: No Symptoms Endocrine: No Symptoms All Other Systems: Reviewed and Negative - Past Medical History Pertinent Past Medical History: Yes Neurological History: TIA Cardiac History: Coronary Artery Disease, Hypertension Respiratory History: No Pertinent History Endocrine Medical History: No Pertinent History Musculoskeletal History: Osteoarthritis Other Medical History: POLCYSTIC KIDNEY DISEASE - Past Surgical History Past Surgical History: Yes Cardiac: CABG Musculoskeletal: Other Female Surgical History: Hysterectomy Other Surgical History: left/right knee replacements - Social History Smoking Status: Never smoker Exposure to second hand smoke: No Drug Use: none Patient Lives Alone: No - Nursing Vital Signs Nursing Vital Signs: Initial Vital Signs Pulse Rate 87 07/25/23 23:01 Respiratory Rate 30 H 07/25/23 23:01 Blood Pressure 135/71 07/25/23 23:01 O2 Sat by Pulse Oximetry 99 07/25/23 23:01 Pain Scale Pain Intensity 2 - Physical Exam General Appearance: no apparent distress, alert Eye Exam: PERRL/EOMI, eyes nml inspection Ears, Nose, Throat Exam: normal ENT inspection, moist mucous membranes Neck Exam: normal inspection, non-tender, supple, full range of motion Respiratory Exam: normal breath sounds, lungs clear, No respiratory distress Cardiovascular Exam: regular rate/rhythm, normal heart sounds Gastrointestinal/Abdomen Exam: soft, No tenderness, No mass Back Exam: normal inspection, No CVA tenderness, No vertebral tenderness Extremity Exam: normal inspection, normal range of motion Neurologic Exam: alert, oriented x 3, cooperative, normal mood/affect, sensation nml, No motor deficits Skin Exam: normal color, warm, dry - Course Nursing assessment & vital signs reviewed: Yes EKG Interpreted by Me: RATE (85), Sinus Rhythm, Right Bundle Branch Block, Non- specific ST Changes Ordered Tests: Active Orders 24 hr Category Date Time Status EKG-ER Only STAT Care 07/25/23 23:47 Active CHEST 1 VIEW (PORTABLE) Stat Exams 07/25/23 23:48 Taken BMP Stat Lab 07/25/23 23:59 Completed CBC W DIFF Stat Lab 07/26/23 00:00 Completed CK-Creatinine Phosphokinase Stat Lab 07/25/23 23:59 Completed Lactic Acid Stat Lab 07/26/23 00:40 Completed Manual Differential NC Stat Lab 07/26/23 00:00 Completed PROTIME WITH INR Stat Lab 07/25/23 23:59 Completed PTT Stat Lab 07/25/23 23:59 Completed TROPONIN Q4H Lab 07/25/23 23:59 Completed TROPONIN Q4H Lab 07/26/23 01:39 Completed TROPONIN Q4H Lab 07/26/23 07:48 Ordered Medication Summary Discontinued Medications Generic Name Dose Route Start Last Admin Trade Name Freq PRN Reason Stop Dose Admin Aspirin 162 mg 07/25/23 23:47 07/25/23 23:57 Aspirin 81 Mg Tab.Chew PO 07/25/23 23:48 162 mg STAT ONE Administration Aspirin Confirm 07/25/23 23:55 Aspirin 81 Mg Tab.Chew Administered 07/25/23 23:56 Dose 162 mg .ROUTE .STK-MED ONE Lab/Rad Data: Laboratory Result Diagrams 07/26/23 00:00 07/25/23 23:59 Laboratory Results 07/26/23 07/26/23 07/26/23 Range/Units 01:39 00:40 00:00 WBC 31.9 H* (4.0-10.5) x10^3/uL RBC 3.06 L (4.1-5.4) x10^6/uL Hgb 10.2 L (12.0-16.0) g/dL Hct 31.3 L (35-47) % MCV 102.3 H (78-100) fL MCH 33.3 H (26-32) pg MCHC 32.6 (32-36) g/dL RDW 13.8 (11.5-14.0) % Plt Count 105 L (150-450) x10^3/uL MPV 12.6 H (7.5-11.0) fL Segmented Neutrophils 64 (36.0-66.0) % Band Neutrophils 18 H (0.0-2.0) % Lymphocytes (Manual) 8 L (24-44) % Monocytes (Manual) 1 (0.0-12.0) % Eosinophils (Manual) 4 H (0.00-3.0) % Metamyelocytes 3 % Myelocytes 1 % Nucleated RBCs 1 % Blast Cells 1 % Hypochromia 2+ Toxic Granulation 2+ Dohle Bodies 1+ Platelet Estimate NORMAL (NORMAL) RBC Morphology ABNORMAL Polychromasia 1+ Macrocytosis 1+ PT (9.4-12.5) SECONDS INR (0.8-3.0) APTT (25.1-36.5) SECONDS Sodium (137-145) mmol/L Potassium (3.5-5.1) mmol/L Chloride (98-107) mmol/L Carbon Dioxide (22-30) mmol/L Anion Gap (5-15) MEQ/L BUN (7-17) mg/dL Creatinine (0.52-1.04) mg/dL Estimated GFR ML/MIN Glucose (74-106) mg/dL Lactic Acid 1.9 (0.4-2.0) Calcium (8.4-10.2) mg/dL Creatine Kinase (30-135) U/L Troponin I < 0.012 (0.000-0.034) ng/mL 07/25/23 07/25/23 07/25/23 Range/Units 23:59 23:59 23:59 WBC (4.0-10.5) x10^3/uL RBC (4.1-5.4) x10^6/uL Hgb (12.0-16.0) g/dL Hct (35-47) % MCV (78-100) fL MCH (26-32) pg MCHC (32-36) g/dL RDW (11.5-14.0) % Plt Count (150-450) x10^3/uL MPV (7.5-11.0) fL Segmented Neutrophils (36.0-66.0) % Band Neutrophils (0.0-2.0) % Lymphocytes (Manual) (24-44) % Monocytes (Manual) (0.0-12.0) % Eosinophils (Manual) (0.00-3.0) % Metamyelocytes % Myelocytes % Nucleated RBCs % Blast Cells % Hypochromia Toxic Granulation Dohle Bodies Platelet Estimate (NORMAL) RBC Morphology Polychromasia Macrocytosis PT 11.7 (9.4-12.5) SECONDS INR 1.08 (0.8-3.0) APTT 27.3 (25.1-36.5) SECONDS Sodium 138 (137-145) mmol/L Potassium 4.0 (3.5-5.1) mmol/L Chloride 105 (98-107) mmol/L Carbon Dioxide 25 (22-30) mmol/L Anion Gap 12.0 (5-15) MEQ/L BUN 35 H (7-17) mg/dL Creatinine 2.73 H (0.52-1.04) mg/dL Estimated GFR 17.8 ML/MIN Glucose 88 (74-106) mg/dL Lactic Acid (0.4-2.0) Calcium 9.7 (8.4-10.2) mg/dL Creatine Kinase < 20 L (30-135) U/L Troponin I < 0.012 (0.000-0.034) ng/mL - Progress Progress Note: 07/25/2023 23:10 73 years old female with past medical history of coronary artery disease status post CABG x 4 vessels back in 2016 and a stent placed a year ago, both at [facility] in [place] The patient also has a history of recently diagnosed right breast cancer treated with chemotherapy. The patient had her first chemo a few weeks ago. The patient is presenting to the emergency room complaining of bilateral arm pain that started couple of hours prior to arrival to the emergency room and while at rest. She took 1 nitroglycerin and that gave her some relief. The patient is not sure if her arm pain is secondary to the Neupogen shot that she got few days ago. She has been having generalized muscle aches after the Neupogen shot. At present she denies any chest pain or shortness of breath. No abdominal pain nausea or vomiting. She takes 1 baby aspirin and Plavix on a daily basis. Emergency room course and medical decision making. On arrival the patient is given 2 baby aspirin's. Her EKG reveals sinus rhythm, 85 bpm, right bundle branch block, ST depression in leads V2 50 inversions in V1 V2. On comparison to an EKG which was done back in May 14 those changes were already present. Will check a CBC, CMP, troponin, CPK. At present the patient is denying any pain to her arms or her chest. 07/26/23 01:11 The patient remained stable, no chest pain, no pain to both arms. Her workup revealed elevated white count at 32,000, hemoglobin 10, hematocrit 31 and platelets 105. The patient received 2 Neupogen shots last Friday and last , 2 days from today. Her white count prior to that was 0.7. No fever, no chills, lactic acid normal at 1.9. Her troponin less than 0.012. BUN 35, baseline at 39, creatinine 2.7, baseline at 2.3. Will repeat a second troponin 3 hours from the initial 1. Chest x-ray, CABG wires, Port-A-Cath no infiltrates. 07/26/23 02:44 The patient remained pain-free, no pain in her upper extremities or chest no shortness of breath. . Troponin less than 0.012. The patient will be discharged home. She needs to follow-up with her oncologist and shipping receiving clerk on outpatient basis. Continue present medications. - Departure Departure Disposition: Home Clinical Impression: Arm pain, Leukocytosis Condition: Stable Critical Care Time: No Referrals: CHERYL ANGELA MD [Primary Care Provider] - Follow up/PCP as directed Additional Instructions: Take Tylenol 1000 mg as needed for arm pain. For any chest pain take sublingual nitroglycerin every 5 minutes x 3 and call 911. Follow-up with your family physician 2 to 3 days. Follow-up with your shipping receiving clerk in 3 to 5 days. Follow-up with your oncologist as scheduled.
[2023-07-25] MEDS ORDERED: BABY ASPIRIN 81 MG CHEW PO ONE (23:47)
[2023-07-25] MEDS ORDERED: BABY ASPIRIN 81 MG CHEW ONE (23:55)
[2023-07-26 00:04] LABS: Hematocrit 31.3 % (35-47); Hemoglobin 10.2 g/dL (12.0-16.0); Mean Cell Volume 102.3 fL (78-100); Mean Corpuscular Hemoglobin 33.3 pg (26-32); Mean Corpuscular Hgb Concent. 32.6 g/dL (32-36); Mean Platelet Volume 12.6 fL (7.5-11.0); Platelet Count 105 x10^3/uL (150-450); Red Blood Count 3.06 x10^6/uL (4.1-5.4); Red Cell Distribution Width 13.8 % (11.5-14.0)
[2023-07-26 00:07] LABS: White Blood Count 31.9 x10^3/uL (4.0-10.5)
[2023-07-26 00:16] LABS: BLOOD UREA NITROGEN 35 mg/dL (7-17); CHLORIDE 105 mmol/L (98-107); CK-Creatinine Phosphokinase < 20 U/L (30-135); Calcium 9.7 mg/dL (8.4-10.2); Carbon Dioxide 25 mmol/L (22-30); Creatinine 1 2.73 mg/dL (0.52-1.04); EST GLOMERULAR FILTRATION RATE 17.8 ML/MIN; Glucose 88 mg/dL (74-106); SODIUM 138 mmol/L (137-145)
[2023-07-26 00:19] LABS: INR 1.08 (0.8-3.0); PROTIME 11.7 SECONDS (9.4-12.5); PTT 27.3 SECONDS (25.1-36.5)
[2023-07-26 01:24] LABS: BAND 18 % (0.0-2.0); Blastocytes 1 %; Eosinophil 4 % (0.00-3.0); Lymphocytes 8 % (24-44); Metamyelocyte 3 %; Monocyte 1 % (0.0-12.0); Myelocyte 1 %; Neutrophils 64 % (36.0-66.0); Nucleated Red Blood Cell 1 %; Total Cells Counted 100
[2023-07-26 01:25] LABS: Toxic Granulation 2+
[2023-07-26 01:26] LABS: Dohle Bodies 1+; Hypochromia 2+
[2023-07-26 01:27] LABS: Polychromasia 1+
[2023-07-26 01:28] LABS: Macrocytosis 1+; Platelet Estimate NORMAL (NORMAL)
[2023-07-26 02:04] VITALS: PULSE 79
[2023-07-26 03:36] VITALS: BP 111/67; RESP 23; O2SAT 93
--- NOTE | 2023-07-26 08:00 | XRAY ---
Indication: Chest pain. Comparison: May 21, 2022 Portable chest less inflated and remains clear. Heart not enlarged again with CABG. New left Port-A-Cath. Bony thorax intact again with osteopenia and mild degenerative changes. Impression: Continued nonacute chest with chronic features.
== END 2023-07-26 03:21 | disposition home or self-care (01) ==
LOC: ED 22:59
DX: M79.601 Pain in right arm (principal); M79.602 Pain in left arm; D72.829 Elevated white blood cell count, unspecified; I10 Essential (primary) hypertension; Z79.02 Long term (current) use of antithrombotics/antiplatelets; Z79.899 Other long term (current) drug therapy
CPT/HCPCS: 36000; 36415; 71045; 80048; 82550; 83605; 84484; 85025; 85610; 85730; 93005; 99284; A9270-GY

== ENCOUNTER 2023-08-18 01:05 | Observation (INO) | payer MEDICARE, OTHER ==
[2023-08-18] MEDS ORDERED: BABY ASPIRIN 81 MG CHEW ONE (01:49)
[2023-08-18] MEDS: BABY ASPIRIN 81 MG CHEW PO ONE (01:50)
[2023-08-18 02:27] LABS: Hemoglobin 7.9 g/dL (12.0-16.0); Mean Cell Volume 101.7 fL (78-100); Mean Corpuscular Hemoglobin 33.5 pg (26-32); Mean Corpuscular Hgb Concent. 32.9 g/dL (32-36); Mean Platelet Volume 11.5 fL (7.5-11.0); Platelet Count 165 x10^3/uL (150-450); Red Blood Count 2.36 x10^6/uL (4.1-5.4); Red Cell Distribution Width 15.1 % (11.5-14.0)
[2023-08-18 02:43] LABS: White Blood Count 44.8 x10^3/uL (4.0-10.5)
[2023-08-18 02:44] LABS: ALBUMIN 3.6 g/dL (3.5-5.0); ANION GAP 13.2 MEQ/L (5-15); BILIRUBIN,TOTAL 0.2 mg/dL (0.2-1.3); Calcium 9.2 mg/dL (8.4-10.2); Creatinine 1 1.78 mg/dL (0.52-1.04); EST GLOMERULAR FILTRATION RATE 29.8 ML/MIN; Potassium 4.7 mmol/L (3.5-5.1); Total Protein 6.2 g/dL (6.3-8.2)
--- NOTE | 2023-08-18 02:54 | ERPHSYRPT ---
- History of Present Illness Time Seen by Provider: 08/18/23 01:40 Patient Subjective Stated Complaint: pt states that at approx 2230 last night she started having chest pain to left upper chest that radiated to left arm, b ilat shoulders, and bilat upper back which was relieved with 1 spray of nitroglyercin. at approx 2315 she started having the chest pain again in same locations and took 1 spray nitroglycerin and pain decreased to a tolerable level 3/10 and was then located to left arm, left shoulder, and left upper back at that time. pt states this pain was similar in description to when she had a heart attach in the past. Triage Nursing Assessment: pt ambulated into room 6 independently with slow steady gait. pt is alert and oriented times three, able to move all extremities, able to speak in complete sentences, and with resp even and unlabored. bilat anterior lung sounds clear throughout. heart sounds present and regular. bilat radial and pedal pulses palpable. no JVD or edema noted. skin is pink, warm, dry, and intact. pt denies n/v, SOB, difficulty breathing, holcomb, diarrhea, change in appetite, difficulty with urination or bowel elimination, lightheadedness, or dizziness. Physician History: 73yo f w/ hx of breast cancer on chemotherapy presents w/ cp for 1h prior to arrival. Pt states the pain starts in her left hand and radiates up her arm and into her chest and back. Pt reports she has had this pain before and it was after she had chemo. Pt had chemo on 08/13/23. Pt has hx of NV in past w/ stents placed. Pt currently denies any cp, soa, back pain or arm pain. Timing/Duration: today Activities at Onset: none Quality: sharpness Location: shoulder, back, other (left arm) Chest Pain Radiation: neck, arm, back Severity of Pain-Max: moderate Severity of Pain-Current: none Modifying Factors: Improves With: nitroglycerin Associated Symptoms: diaphoresis, No nausea, No vomiting, No palpitations Prior Chest Pain/Cardiac Workup: heart attack Nitro Today/Relief: 0.4 mg x 1 Aspirin Treatment Today: 325 mg x 1 Allergies/Adverse Reactions: Penicillins Allergy (Verified 08/18/23 01:06) Rash oxycodone [From OxyContin] Adverse Reaction (Intermediate, Verified 08/18/23 01:34) Rapid Heart Beat not rapid heart rate, hallucinations and behavioral issues. pt doesn't want to take Home Medications: Clopidogrel Bisulfate [PLAVIX Tablet] 75 mg PO DAILY 12/10/15 [History] Fluoxetine HCl 20 mg PO DAILY 12/10/15 [History] Paricalcitol [Zemplar] 1 mcg PO DAILY 12/10/15 [History] Spironolactone 25 mg PO BID 12/10/15 [History] Tolterodine Tartrate [Detrol LA] 4 mg PO DAILY 12/10/15 [History] Amlodipine Besylate 5 mg PO DAILY 06/10/17 [History] Aspirin [Aspirin EC] 81 mg PO DAILY 06/10/17 [History] Atorvastatin Calcium [Lipitor] 80 mg PO HS 06/10/17 [History] Furosemide 20 mg [Lasix 20 mg] 20 mg PO DAILY 06/10/17 [History] Lansoprazole 30 mg PO DAILY 06/10/17 [History] Allopurinol 300 mg [Zyloprim 300 mg] 300 mg PO DAILY 05/03/22 [History] Ezetimibe 10 mg [Zetia 10 MG] 10 mg PO HS 05/03/22 [History] Gabapentin [Neurontin ] 100 mg PO DAILY 05/03/22 [History] Metoprolol Tartrate 25 mg [Lopressor 25MG Tab] 25 mg PO DAILY 05/03/22 [History] Febuxostat [Uloric] 80 mg PO DAILY 05/21/22 [History] Isosorbide Mononitrate 30 mg [Imdur 30 MG] 30 mg PO DAILY 05/21/22 [History] Ranolazine 500 MG [Ranexa 500 MG] 500 mg PO BID 08/18/23 [History] Hx Tetanus, Diphtheria Vaccination/Date Given: Yes (UP TO DATE) Hx Influenza Vaccination/Date Given: Yes Hx Pneumococcal Vaccination/Date Given: Yes Immunizations Up to Date: No Travel Risk - International Travel Have you traveled outside of the country in past 3 weeks: No - Coronavirus Screening Are you exhibiting any of the following symptoms?: No Close contact with a COVID-19 positive Pt in past 14-21 Days: No - Vaccine Status Have you recieved a Covid-19 vaccination: Yes Rn Manager: Pfizer - Vaccination Dates Date of 2cond Vaccination (if applicable): 2020 - Review of Systems Constitutional: No Symptoms Respiratory: No Symptoms Cardiac: Chest Pain Abdominal/Gastrointestinal: No Abdominal Pain, No Nausea, No Vomiting Musculoskeletal: Back Pain, Neck Pain - Past Medical History Pertinent Past Medical History: Yes Neurological History: TIA ENT History: No Pertinent History Cardiac History: Coronary Artery Disease, Hypertension, Myocardial Infarction (NV) Respiratory History: No Pertinent History Endocrine Medical History: No Pertinent History Musculoskeletal History: Osteoarthritis GI Medical History: No Pertinent History History: No Pertinent History Psycho-Social History: No Pertinent History Female Reproductive Disorders: Breast Cancer Other Medical History: POLCYSTIC KIDNEY DISEASE - Past Surgical History Past Surgical History: Yes Neuro Surgical History: No Pertinent History Cardiac: CABG Respiratory: No Pertinent History Gastrointestinal: Appendectomy Genitourinary: No Pertinent History Musculoskeletal: Joint Replacement, Other Female Surgical History: Hysterectomy Other Surgical History: left/right knee replacements - Social History Smoking Status: Never smoker Exposure to second hand smoke: No Drug Use: none Patient Lives Alone: No - Nursing Vital Signs Nursing Vital Signs: Initial Vital Signs Temperature 98.9 F 08/18/23 01:05 Pulse Rate 78 08/18/23 01:05 Respiratory Rate 20 08/18/23 01:05 Blood Pressure 149/86 08/18/23 01:05 O2 Sat by Pulse Oximetry 97 08/18/23 01:05 Pain Scale Pain Intensity 3 - Physical Exam General Appearance: no apparent distress Respiratory Exam: normal breath sounds, airway intact, No chest tenderness, No respiratory distress Cardiovascular Exam: regular rate/rhythm, normal heart sounds, normal peripheral pulses Gastrointestinal/Abdomen Exam: soft, normal bowel sounds, No tenderness, No distention Lymphatic Exam: adenopathy SpO2 Interpretation: normal SpO2: 97 O2 Delivery: Room Air - Course EKG Interpreted by Me: RATE (79), Sinus Rhythm, Right Bundle Branch Block, Other (qtcb 499, some moderate ST depression appreciated) Ordered Tests: Active Orders 24 hr Category Date Time Status CHEST 1 VIEW (PORTABLE) Stat Exams 08/18/23 01:45 Taken CBC W DIFF Stat Lab 08/18/23 02:24 Completed CMP Stat Lab 08/18/23 02:24 Completed Manual Differential NC Stat Lab 08/18/23 02:24 Completed NT PRO BNPII Stat Lab 08/18/23 02:24 Completed TROPONIN Q4H Lab 08/18/23 02:24 Completed TROPONIN Q4H Lab 08/18/23 05:45 Ordered TROPONIN Q4H Lab 08/18/23 09:45 Ordered Medication Summary Discontinued Medications Generic Name Dose Route Start Last Admin Trade Name Eldonq PRN Reason Stop Dose Admin Aspirin 243 mg 08/18/23 01:34 08/18/23 01:50 Aspirin 81 Mg Tab.Chew PO 08/18/23 01:35 243 mg STAT ONE Administration Aspirin Confirm 08/18/23 01:49 Aspirin 81 Mg Tab.Chew Administered 08/18/23 01:50 Dose 243 mg .ROUTE .STDasient-MED ONE Lab/Rad Data: Laboratory Result Diagrams 08/18/23 02:24 08/18/23 02:24 Laboratory Results 08/18/23 08/18/23 08/18/23 Range/Units 02:24 02:24 02:24 WBC (4.0-10.5) x10^3/uL RBC (4.1-5.4) x10^6/uL Hgb (12.0-16.0) g/dL Hct (35-47) % MCV (78-100) fL MCH (26-32) pg MCHC (32-36) g/dL RDW (11.5-14.0) % Plt Count (150-450) x10^3/uL MPV (7.5-11.0) fL Sodium 139 (137-145) mmol/L Potassium 4.7 (3.5-5.1) mmol/L Chloride 108 H (98-107) mmol/L Carbon Dioxide 23 (22-30) mmol/L Anion Gap 13.2 (5-15) MEQ/L BUN 39 H (7-17) mg/dL Creatinine 1.78 H (0.52-1.04) mg/dL Estimated GFR 29.8 ML/MIN Glucose 161 H (74-106) mg/dL Calcium 9.2 (8.4-10.2) mg/dL Total Bilirubin 0.20 (0.2-1.3) mg/dL AST 29 (14-36) U/L ALT 12 (0-35) U/L Alkaline Phosphatase 179 H (38-126) U/L Troponin I 0.060 H* (0.000-0.034) ng/mL NT-Pro-B Natriuret Pep 9550 (<300) pg/mL Serum Total Protein 6.2 L (6.3-8.2) g/dL Albumin 3.6 (3.5-5.0) g/dL 08/18/23 Range/Units 02:24 WBC 44.8 H* (4.0-10.5) x10^3/uL RBC 2.36 L (4.1-5.4) x10^6/uL Hgb 7.9 L (12.0-16.0) g/dL Hct 24.0 L (35-47) % MCV 101.7 H (78-100) fL MCH 33.5 H (26-32) pg MCHC 32.9 (32-36) g/dL RDW 15.1 H (11.5-14.0) % Plt Count 165 (150-450) x10^3/uL MPV 11.5 H (7.5-11.0) fL Sodium (137-145) mmol/L Potassium (3.5-5.1) mmol/L Chloride (98-107) mmol/L Carbon Dioxide (22-30) mmol/L Anion Gap (5-15) MEQ/L BUN (7-17) mg/dL Creatinine (0.52-1.04) mg/dL Estimated GFR ML/MIN Glucose (74-106) mg/dL Calcium (8.4-10.2) mg/dL Total Bilirubin (0.2-1.3) mg/dL AST (14-36) U/L ALT (0-35) U/L Alkaline Phosphatase (38-126) U/L Troponin I (0.000-0.034) ng/mL NT-Pro-B Natriuret Pep (<300) pg/mL Serum Total Protein (6.3-8.2) g/dL Albumin (3.5-5.0) g/dL - Progress Progress Note: 08/18/23 04:02 HEART score 6 trop elevated at 0.06 discussed admission to obs w/ Dr Bowles who accepts Blood Culture(s) Obtained: No Antibiotics given: No Will see patient in: hospital (observation) Counseled pt/family regarding: lab results, diagnosis, need for follow-up, rad results Medical Desision Making - Discussion of managment Care discussed with:: hospitalist Reviewed:: Test results, Need for additional workup Agreed on:: need for follow-up, place in obs Will see patient: in hospital - Diagnostic Testing Diagnostic test were ordered, analyzed, and reviewed by me: Yes Radiological Interpretation: Reviewed by me, Teleradiologist Report - Risk of complications The pt has a mod risk of morbidity or mortality based on: Need for prescription drug management The pt has a high risk of morbidity or mortality based on: Decision regarding hospitilization or escalation of hosp level of care - Departure Departure Disposition: Observation Clinical Impression: Elevated troponin Leukocytosis Qualifiers: Leukocytosis type: unspecified Qualified Code(s): D72.829 - Elevated white blood cell count, unspecified Arm pain Qualifiers: Laterality: left Qualified Code(s): M79.602 - Pain in left arm Condition: Stable Critical Care Time: No Referrals: CHERYL ANGELA MD [Primary Care Provider] - Follow up/PCP as directed
[2023-08-18 04:24] LABS: Metamyelocyte 1 %; Monocyte 1 % (0.0-12.0); Neutrophils 98 % (36.0-66.0); Platelet Estimate NORMAL (NORMAL); Polychromasia 1+; Total Cells Counted 100
[2023-08-18 04:25] LABS: ANISOCYTOSIS 2+; Dohle Bodies 1+; Macrocytosis 2+; Toxic Granulation 2+
[2023-08-18] MEDS ORDERED: TYLENOL 325 MG PO PRN (04:29)
--- NOTE | 2023-08-18 04:36 | PCM.HP ---
History of Present Illness - Chief Complaint Chief Complaint: elevated troponin History of Present Illness: is a 73 year old female with hx of CAD, CHF, HLP, HTN, Gout, GERD, polycystic kidney disease with CKD and breast cancer currently undergoing chemo came in with c/o left sided chest pain that started last evening. Pain radiates to left arm, BL shoulders and upper back. No diaphoresis nor nausea. Pain occurred at rest. She took SL nitro and it helped eased the pain a bit. She denies SOB, fever, cough, sputum, syncope Being admitted for chest pain rule out. Had MT some 10 yrs ago. I saw pt via telemedicine. She is resting, on RA, not having any pain at this moment - Review of Systems Constitutional: No Symptoms Eyes: No Symptoms Ears, Nose, & Throat: No Symptoms Respiratory: No Symptoms Cardiac: Chest Pain Abdominal/Gastrointestinal: No Symptoms Genitourinary Symptoms: No Symptoms Musculoskeletal: No Symptoms Skin: No Symptoms Neurological: No Symptoms Psychological: No Symptoms Hematologic/Lymphatic: No Symptoms Immunological/Allergic: No Symptoms Medications & Allergies Home Medications: Home Medication List Clopidogrel Bisulfate [PLAVIX Tablet] 75 mg PO DAILY 12/10/15 [History Confirmed 08/18/23] Fluoxetine HCl 20 mg PO DAILY 12/10/15 [History Confirmed 08/18/23] Paricalcitol [Zemplar] 1 mcg PO DAILY 12/10/15 [History Confirmed 08/18/23] Spironolactone 25 mg PO BID 12/10/15 [History Confirmed 08/18/23] Tolterodine Tartrate [Detrol LA] 4 mg PO DAILY 12/10/15 [History Confirmed 08/18/23] Amlodipine Besylate 5 mg PO DAILY 06/10/17 [History Confirmed 08/18/23] Aspirin [Aspirin EC] 81 mg PO DAILY 06/10/17 [History Confirmed 08/18/23] Atorvastatin Calcium [Lipitor] 80 mg PO HS 06/10/17 [History Confirmed 08/18/23] Furosemide 20 mg [Lasix 20 mg] 20 mg PO DAILY 06/10/17 [History Confirmed 08/18/23] Lansoprazole 30 mg PO DAILY 06/10/17 [History Confirmed 08/18/23] Allopurinol 300 mg [Zyloprim 300 mg] 300 mg PO DAILY 05/03/22 [History Confirmed 08/18/23] Ezetimibe 10 mg [Zetia 10 MG] 10 mg PO HS 05/03/22 [History Confirmed 08/18/23] Gabapentin [Neurontin ] 100 mg PO DAILY 05/03/22 [History Confirmed 08/18/23] Metoprolol Tartrate 25 mg [Lopressor 25MG Tab] 25 mg PO DAILY 05/03/22 [History Confirmed 08/18/23] Febuxostat [Uloric] 80 mg PO DAILY 05/21/22 [History Confirmed 08/18/23] Isosorbide Mononitrate 30 mg [Imdur 30 MG] 30 mg PO DAILY 05/21/22 [History Confirmed 08/18/23] Ranolazine 500 MG [Ranexa 500 MG] 500 mg PO BID 08/18/23 [History Confirmed 08/18/23] Allergies/Adverse Reactions: Allergies Allergy/AdvReac Type Severity Reaction Status Date / Time Penicillins Allergy Rash Verified 08/18/23 01:06 oxycodone [From OxyContin] AdvReac Intermediate Rapid Verified 08/18/23 01:34 Heart Beat - Past Medical History Past Medical History: Yes Neurological History: TIA ENT History: No Pertinent History Cardiac History: Congestive Heart Failure, Coronary Artery Disease, Hypertension, Myocardial Infarction (MT) Respiratory History: No Pertinent History Endocrine Medical History: No Pertinent History Musculoskelatal History: Osteoarthritis GI Medical History: No Pertinent History History: No Pertinent History Pyscho-Social History: No Pertinent History Reproductive Disorders: Breast Cancer Comment: POLCYSTIC KIDNEY DISEASE - Past Surgical History Past Surgical History: Yes Neuro Surgical History: No Pertinent History Cardiac History: CABG Respiratory Surgery: No Pertinent History GI Surgical History: Appendectomy Genitourinary Surgical Hx: No Pertinent History Musculskeletal Surgical Hx: Joint Replacement, Other Female Surgical History: Hysterectomy Other Surgical History: left/right knee replacements Significant Family History: no pertinent family hx - Social History Smoking Status: Never smoker Exposure to second hand smoke: No Alcohol: None Drug Use: none - Physical Exam Vital Signs: Vital Signs - 24 hr Temp Pulse Pulse Resp BP BP Pulse Ox 08/18/23 04:05 97 08/18/23 02:30 67 20 180/76 97 08/18/23 02:16 71 19 172/91 98 08/18/23 01:31 78 17 121/64 98 08/18/23 01:06 82 08/18/23 01:05 98.9 F 78 20 149/86 97 General Appearance: no apparent distress Neurologic Exam: alert, oriented x 3, cooperative Eye Exam: PERRL/EOMI, eyes nml inspection Ears, Nose, Throat Exam: normal ENT inspection Neck Exam: normal inspection, full range of motion Respiratory Exam: normal breath sounds, lungs clear Cardiovascular Exam: regular rate/rhythm, normal heart sounds Gastrointestinal/Abdomen Exam: soft, normal bowel sounds Pelvic Exam: deferred Rectal Exam: deferred Back Exam: normal inspection Extremity Exam: normal inspection Skin Exam: normal color Results - Labs Lab/Micro Results: Lab Results-Last 24 Hours 08/18/23 08/18/23 08/18/23 Range/Units 02:24 02:24 02:24 WBC 44.8 H* (4.0-10.5) x10^3/uL RBC 2.36 L (4.1-5.4) x10^6/uL Hgb 7.9 L (12.0-16.0) g/dL Hct 24.0 L (35-47) % MCV 101.7 H (78-100) fL MCH 33.5 H (26-32) pg MCHC 32.9 (32-36) g/dL RDW 15.1 H (11.5-14.0) % Plt Count 165 (150-450) x10^3/uL MPV 11.5 H (7.5-11.0) fL Segmented Neutrophils 98 H (36.0-66.0) % Monocytes (Manual) 1 (0.0-12.0) % Metamyelocytes 1 % Toxic Granulation 2+ Dohle Bodies 1+ Platelet Estimate NORMAL (NORMAL) RBC Morphology ABNORMAL Polychromasia 1+ Anisocytosis 2+ Macrocytosis 2+ Sodium 139 (137-145) mmol/L Potassium 4.7 (3.5-5.1) mmol/L Chloride 108 H (98-107) mmol/L Carbon Dioxide 23 (22-30) mmol/L Anion Gap 13.2 (5-15) MEQ/L BUN 39 H (7-17) mg/dL Creatinine 1.78 H (0.52-1.04) mg/dL Estimated GFR 29.8 ML/MIN Glucose 161 H (74-106) mg/dL Calcium 9.2 (8.4-10.2) mg/dL Total Bilirubin 0.20 (0.2-1.3) mg/dL AST 29 (14-36) U/L ALT 12 (0-35) U/L Alkaline Phosphatase 179 H (38-126) U/L Troponin I 0.060 H* (0.000-0.034) ng/mL NT-Pro-B Natriuret Pep (<300) pg/mL Serum Total Protein 6.2 L (6.3-8.2) g/dL Albumin 3.6 (3.5-5.0) g/dL 08/18/23 Range/Units 02:24 WBC (4.0-10.5) x10^3/uL RBC (4.1-5.4) x10^6/uL Hgb (12.0-16.0) g/dL Hct (35-47) % MCV (78-100) fL MCH (26-32) pg MCHC (32-36) g/dL RDW (11.5-14.0) % Plt Count (150-450) x10^3/uL MPV (7.5-11.0) fL Segmented Neutrophils (36.0-66.0) % Monocytes (Manual) (0.0-12.0) % Metamyelocytes % Toxic Granulation Dohle Bodies Platelet Estimate (NORMAL) RBC Morphology Polychromasia Anisocytosis Macrocytosis Sodium (137-145) mmol/L Potassium (3.5-5.1) mmol/L Chloride (98-107) mmol/L Carbon Dioxide (22-30) mmol/L Anion Gap (5-15) MEQ/L BUN (7-17) mg/dL Creatinine (0.52-1.04) mg/dL Estimated GFR ML/MIN Glucose (74-106) mg/dL Calcium (8.4-10.2) mg/dL Total Bilirubin (0.2-1.3) mg/dL AST (14-36) U/L ALT (0-35) U/L Alkaline Phosphatase (38-126) U/L Troponin I (0.000-0.034) ng/mL NT-Pro-B Natriuret Pep 9550 (<300) pg/mL Serum Total Protein (6.3-8.2) g/dL Albumin (3.5-5.0) g/dL - Radiology Impressions Radiology Exams & Impressions: Radiology Procedures Category Date Time Status CHEST 1 VIEW (PORTABLE) Stat Exams 08/18/23 01:45 Taken Assessment/Plan (1) Unstable angina Current Visit: No Status: Acute Assessment & Plan: SL Nitro prn. EKG no acute finding. Trop 0.06. Serial trops pending. Risk factors include age, HTN, HLP, previous MT. (2) Leukocytosis Current Visit: Yes Status: Acute Qualifiers: Leukocytosis type: unspecified Qualified Code(s): D72.829 - Elevated white blood cell count, unspecified Assessment & Plan: WBC 44K - likely related to chemo rather than infectious given lack fo source. Pt does not appear septic on my exam. Monitor Code(s): D72.829 - ELEVATED WHITE BLOOD CELL COUNT, UNSPECIFIED (3) Anemia Current Visit: Yes Status: Acute Assessment & Plan: Hgb 7.9 - could be cancer or chemo related. Monitor closely. Pt denies black or bloody stools. Code(s): D64.9 - ANEMIA, UNSPECIFIED (4) CAD (coronary artery disease) Current Visit: Yes Status: Acute Assessment & Plan: Hx of MT some 10 yrs ago. Continue aspirin, Plavix, BB, ACEI. Serial trops for chest pain complaint. BNP 9K. Continue Lasix per home dose Code(s): I25.10 - ATHSCL HEART DISEASE OF [place] CORONARY ARTERY W/O ANG PCTRS (5) CKD (chronic kidney disease) Current Visit: Yes Status: Acute Assessment & Plan: Unsure of baseline. Hx of polycystic kidney disease. Cr 1.78. Monitor closely. Code(s): N18.9 - CHRONIC KIDNEY DISEASE, UNSPECIFIED (6) Essential (primary) hypertension Current Visit: Yes Status: Acute Assessment & Plan: Resume home BP meds. Monitor BP trend and make adjustment as needed Code(s): I10 - ESSENTIAL (PRIMARY) HYPERTENSION Telemedicine Encounter - Telemedicine Encounter Telemedicine Encounter: The entirety of this encounter was performed via Telemedicine" The pt gave me verbal consent to have this telemedicine visit
[2023-08-18] MEDS ORDERED: MEDICATION INTERVENTION MC SCH ×2 (08:45)
--- NOTE | 2023-08-18 08:47 | XRAY ---
Indication: Chest pain. Comparison: July 25, 2023 Portable chest unchanged again slightly underinflated and clear. Heart not enlarged again with CABG and left Port-A-Cath. No new/acute findings.
[2023-08-18] MEDS: ECOTRIN 81 MG PO SCH (09:42)
[2023-08-18] MEDS: HEPARIN 5000 UNITS/0.5 ML (HIGH RISK MED) SQ SCH ×2 (09:42→21:27)
[2023-08-18] MEDS: Ditropan XL 5 MG PO SCH (09:42)
[2023-08-18] MEDS: PLAVIX Tablet PO SCH (09:43)
[2023-08-18] MEDS: Neurontin PO SCH (09:43)
[2023-08-18] MEDS: LASIX 20 MG PO SCH (09:43)
[2023-08-18] MEDS: NORVASC 5 MG PO SCH (09:43)
[2023-08-18] MEDS: Imdur 30 MG PO SCH (09:43)
[2023-08-18] MEDS: Aldactone 25 MG PO SCH (09:43)
[2023-08-18] MEDS: Lopressor 25MG Tab PO SCH (09:44)
[2023-08-18] MEDS: Prozac 20 MG PO SCH (09:44)
[2023-08-18] MEDS: Protonix 40MG Tablet PO SCH (09:44)
[2023-08-18] MEDS: ZYLOPRIM 100 MG PO SCH (09:44)
[2023-08-18] MEDS: Ranexa 500 MG PO SCH (09:48)
[2023-08-18] MEDS ORDERED: TOLTERODINE TARTRATE 4 MG PO SCH (10:00)
[2023-08-18] MEDS ORDERED: FEBUXOSTAT 80 MG PO SCH (10:00)
[2023-08-18] MEDS ORDERED: PARICALCITOL 1 MCG PO SCH (10:00)
[2023-08-18] MEDS ORDERED: NON-FORMULARY ITEM (Lansoprazole [Lansoprazole] 30 MG Capsule.Dr) PO SCH (10:00)
[2023-08-18] MEDS ORDERED: HEPARIN 5000 UNITS/0.5 ML (HIGH RISK MED) IV PRN (10:02)
[2023-08-18 10:15] LABS: TSH, 3RD Generation 0.779 mIU/L (0.47-4.68)
[2023-08-18 10:24] LABS: INR 1.05 (0.8-3.0); PROTIME 11.4 SECONDS (9.4-12.5); PTT 22.8 SECONDS (25.1-36.5)
[2023-08-18 10:38] LABS: Hematocrit 21.6 % (35-47); Hemoglobin 7.2 g/dL (12.0-16.0); Mean Cell Volume 101.4 fL (78-100); Mean Corpuscular Hemoglobin 33.8 pg (26-32); Mean Corpuscular Hgb Concent. 33.3 g/dL (32-36); Mean Platelet Volume 11.2 fL (7.5-11.0); Platelet Count 146 x10^3/uL (150-450); Red Blood Count 2.13 x10^6/uL (4.1-5.4); Red Cell Distribution Width 15.5 % (11.5-14.0)
[2023-08-18 10:41] LABS: White Blood Count 32.3 x10^3/uL (4.0-10.5)
[2023-08-18 11:18] LABS: Slide Review YES
[2023-08-18] MEDS: Nitrostat 0.4 MG Tablet SL PRN (11:21)
[2023-08-18] MEDS: Heparin 25,000 units/D5W: USE ORDER SET PROTO 25,000 UNITS/250 ML BAG IV SCH (11:38)
--- NOTE | 2023-08-18 13:25 | XRAY ---
Indication: Chest pain, left arm pain, and short of breath. Elevated d-dimer. History of PE. Chronic renal disease. Comparison: None Patient received 5.4 mCi technetium 99 MAA for the perfusion portion of the exam. Patient inhaled 35.0 mCi aerosolized technetium 99 DTPA for the ventilation. Multiple planar images obtained. Perfusion images demonstrates small subsegmental perfusion defect involving superior segment left lower lobe. No other segmental or subsegmental perfusion defect. Ventilation images also demonstrates homogeneous radiopharmaceutical activity bilaterally. Impression: Small mismatched subsegmental perfusion defect left lower lobe with normal same day chest radiopgraph. PIOPED criteria for pulmonary embolus is low probability.
[2023-08-18 18:49] LABS: Hematocrit 24.2 % (35-47); Hemoglobin 7.9 g/dL (12.0-16.0)
[2023-08-18] MEDS: ZOCOR 20MG PO SCH (21:27)
[2023-08-18] MEDS: Zetia 10 MG PO SCH (21:28)
[2023-08-18] MEDS ORDERED: NON-FORMULARY ITEM (Atorvastatin Calcium [Lipitor] 10 MG Tablet) PO SCH (22:00)
[2023-08-19 06:02] VITALS: BP 153/81
[2023-08-19 06:59] LABS: Hematocrit 25.1 % (35-47); Hemoglobin 7.8 g/dL (12.0-16.0); Mean Cell Volume 106.4 fL (78-100); Mean Corpuscular Hemoglobin 33.1 pg (26-32); Mean Corpuscular Hgb Concent. 31.1 g/dL (32-36); Mean Platelet Volume 11.5 fL (7.5-11.0); Platelet Count 142 x10^3/uL (150-450); Red Blood Count 2.36 x10^6/uL (4.1-5.4); Red Cell Distribution Width 15.5 % (11.5-14.0); White Blood Count 4.9 x10^3/uL (4.0-10.5)
[2023-08-19 07:05] LABS: Calcium 8.9 mg/dL (8.4-10.2); Creatinine 1 1.85 mg/dL (0.52-1.04); EST GLOMERULAR FILTRATION RATE 28.4 ML/MIN; Potassium 4.3 mmol/L (3.5-5.1)
[2023-08-19 07:15] VITALS: O2SAT 94
--- NOTE | 2023-08-19 07:39 | PCM.DS ---
Discharge Summary Date of Admission: 08/18/23 05:18 Date of Discharge: 08/19/23 Admitting Physician: FILIBERTO CHAIREZ DO Consults: Consults on Case 08/18/23 07:48 Consult Cardiology ROUTINE Primary Care Provider: JULIO CÉSAR,CHERYL Allergies Allergies Penicillins Allergy (Verified 08/18/23 01:06) Rash oxycodone [From OxyContin] Adverse Reaction (Intermediate, Verified 08/18/23 01:34) Rapid Heart Beat not rapid heart rate, hallucinations and behavioral issues. pt doesn't want to take Hospital Summary - Hospital Course Hospital Course: is a 73 year old female with hx of CAD, CHF, HLP, HTN, NC, Gout, GERD, polycystic kidney disease with CKD and breast cancer currently undergoing chemo. She came in with c/o left sided chest pain that started 08/17/23 that evening. Pain radiates to left arm, BL shoulders and upper back. No diaphoresis nor nausea. Pain occurred at rest. She took SL nitro and it helped eased the pain a bit. She had some CP yesterday and elevated trops. D-dimer elevated and VQ negative for PE so heparin gtt stopped, and changed to BID. She had a cardiology consult and he increased IMDUR, ordered echo and explained to observe overnight. She has not had any CP since yesterday. She is wanting to leave as she has an appointment in the office with her engineer/conductor today. She denies any further concern at this time. - Vitals & Intake/Output Vital Signs: Vital Signs Temperature 96.2 F 08/19/23 05:03 Pulse Rate 75 08/19/23 06:02 Respiratory Rate 18 08/19/23 06:02 Blood Pressure 149/76 08/19/23 05:03 O2 Sat by Pulse Oximetry 94 L 08/19/23 07:14 Intake & Output: Intake & Output 08/16/23 08/17/23 08/18/23 08/19/23 11:59 11:59 11:59 11:59 Intake Total 360 1040 Balance 360 1040 Weight 80.2 kg - Lab Result Diagrams: 08/18/23 18:32 08/19/23 06:35 Lab Results-Last 24 Hrs: Lab Results-Last 24 Hours 08/18/23 08/18/23 08/18/23 Range/Units 02: 06:24 08:00 WBC 44.8 H* (4.0-10.5) x10^3/uL RBC 2.36 L (4.1-5.4) x10^6/uL Hgb 7.9 L (12.0-16.0) g/dL Hct 24.0 L (35-47) % MCV 101.7 H (78-100) fL MCH 33.5 H (26-32) pg MCHC 32.9 (32-36) g/dL RDW 15.1 H (11.5-14.0) % Plt Count 165 (150-450) x10^3/uL MPV 11.5 H (7.5-11.0) fL Segmented Neutrophils 98 H (36.0-66.0) % Monocytes (Manual) 1 (0.0-12.0) % Metamyelocytes 1 % Toxic Granulation 2+ Dohle Bodies 1+ Platelet Estimate NORMAL (NORMAL) RBC Morphology ABNORMAL Polychromasia 1+ Anisocytosis 2+ Macrocytosis 2+ Smear Path Review Pending PT (9.4-12.5) SECONDS INR (0.8-3.0) APTT (25.1-36.5) SECONDS D-Dimer (0.0-0.50) mg/L Sodium (137-145) mmol/L Potassium (3.5-5.1) mmol/L Chloride (98-107) mmol/L Carbon Dioxide (22-30) mmol/L Anion Gap (5-15) MEQ/L BUN (7-17) mg/dL Creatinine (0.52-1.04) mg/dL Estimated GFR ML/MIN Glucose (74-106) mg/dL Lactic Acid 1.5 (0.4-2.0) Calcium (8.4-10.2) mg/dL Troponin I (0.000-0.034) ng/mL Triglycerides 89 (30-150) mg/dL Cholesterol 143 (50-200) mg/dL LDL Cholesterol 76 (30-100) mg/dL HDL Cholesterol 48 (40-60) mg/dL Heart Disease Risk Ratio 3.0 TSH 3rd Generation 0.779 (0.47-4.68) mIU/L Slides for Path Review 08/18/23 08/18/23 08/18/23 Range/Units 08:00 08:00 09:50 WBC (4.0-10.5) x10^3/uL RBC (4.1-5.4) x10^6/uL Hgb (12.0-16.0) g/dL Hct (35-47) % MCV (78-100) fL MCH (26-32) pg MCHC (32-36) g/dL RDW (11.5-14.0) % Plt Count (150-450) x10^3/uL MPV (7.5-11.0) fL Segmented Neutrophils (36.0-66.0) % Monocytes (Manual) (0.0-12.0) % Metamyelocytes % Toxic Granulation Dohle Bodies Platelet Estimate (NORMAL) RBC Morphology Polychromasia Anisocytosis Macrocytosis Smear Path Review PT 11.4 (9.4-12.5) SECONDS INR 1.05 (0.8-3.0) APTT 22.8 L (25.1-36.5) SECONDS D-Dimer 9.35 H* (0.0-0.50) mg/L Sodium (137-145) mmol/L Potassium (3.5-5.1) mmol/L Chloride (98-107) mmol/L Carbon Dioxide (22-30) mmol/L Anion Gap (5-15) MEQ/L BUN (7-17) mg/dL Creatinine (0.52-1.04) mg/dL Estimated GFR ML/MIN Glucose (74-106) mg/dL Lactic Acid (0.4-2.0) Calcium (8.4-10.2) mg/dL Troponin I 0.093 H* (0.000-0.034) ng/mL Triglycerides (30-150) mg/dL Cholesterol (50-200) mg/dL LDL Cholesterol (30-100) mg/dL HDL Cholesterol (40-60) mg/dL Heart Disease Risk Ratio TSH 3rd Generation (0.47-4.68) mIU/L Slides for Path Review 08/18/23 08/18/23 08/18/23 Range/Units 10:32 10:32 14:30 WBC 32.3 H* (4.0-10.5) x10^3/uL RBC 2.13 L (4.1-5.4) x10^6/uL Hgb 7.2 L (12.0-16.0) g/dL Hct 21.6 L (35-47) % MCV 101.4 H (78-100) fL MCH 33.8 H (26-32) pg MCHC 33.3 (32-36) g/dL RDW 15.5 H (11.5-14.0) % Plt Count 146 L (150-450) x10^3/uL MPV 11.2 H (7.5-11.0) fL Segmented Neutrophils (36.0-66.0) % Monocytes (Manual) (0.0-12.0) % Metamyelocytes % Toxic Granulation Dohle Bodies Platelet Estimate (NORMAL) RBC Morphology Polychromasia Anisocytosis Macrocytosis Smear Path Review PT (9.4-12.5) SECONDS INR (0.8-3.0) APTT 20.6 L 32.9 (25.1-36.5) SECONDS D-Dimer (0.0-0.50) mg/L Sodium (137-145) mmol/L Potassium (3.5-5.1) mmol/L Chloride (98-107) mmol/L Carbon Dioxide (22-30) mmol/L Anion Gap (5-15) MEQ/L BUN (7-17) mg/dL Creatinine (0.52-1.04) mg/dL Estimated GFR ML/MIN Glucose (74-106) mg/dL Lactic Acid (0.4-2.0) Calcium (8.4-10.2) mg/dL Troponin I (0.000-0.034) ng/mL Triglycerides (30-150) mg/dL Cholesterol (50-200) mg/dL LDL Cholesterol (30-100) mg/dL HDL Cholesterol (40-60) mg/dL Heart Disease Risk Ratio TSH 3rd Generation (0.47-4.68) mIU/L Slides for Path Review YES 08/18/23 08/19/23 Range/Units 18:32 06:35 WBC (4.0-10.5) x10^3/uL RBC (4.1-5.4) x10^6/uL Hgb 7.9 L (12.0-16.0) g/dL Hct 24.2 L (35-47) % MCV (78-100) fL MCH (26-32) pg MCHC (32-36) g/dL RDW (11.5-14.0) % Plt Count (150-450) x10^3/uL MPV (7.5-11.0) fL Segmented Neutrophils (36.0-66.0) % Monocytes (Manual) (0.0-12.0) % Metamyelocytes % Toxic Granulation Dohle Bodies Platelet Estimate (NORMAL) RBC Morphology Polychromasia Anisocytosis Macrocytosis Smear Path Review PT (9.4-12.5) SECONDS INR (0.8-3.0) APTT (25.1-36.5) SECONDS D-Dimer (0.0-0.50) mg/L Sodium 137 (137-145) mmol/L Potassium 4.3 (3.5-5.1) mmol/L Chloride 107 (98-107) mmol/L Carbon Dioxide 17 L (22-30) mmol/L Anion Gap 17.0 H (5-15) MEQ/L BUN 49 H (7-17) mg/dL Creatinine 1.85 H (0.52-1.04) mg/dL Estimated GFR 28.4 ML/MIN Glucose 101 (74-106) mg/dL Lactic Acid (0.4-2.0) Calcium 8.9 (8.4-10.2) mg/dL Troponin I (0.000-0.034) ng/mL Triglycerides (30-150) mg/dL Cholesterol (50-200) mg/dL LDL Cholesterol (30-100) mg/dL HDL Cholesterol (40-60) mg/dL Heart Disease Risk Ratio TSH 3rd Generation (0.47-4.68) mIU/L Slides for Path Review - Radiology Exams Ordered Rad Exams-Entire Visit: Radiology Procedures Category Date Time Status CHEST 1 VIEW (PORTABLE) Stat Exams 08/18/23 01:45 Completed PULMONARY PERF VENTILATION [NUCMED] Routine Exams 08/18/23 09:35 Completed - Procedures and Test Procedures and Tests throughout Hospitalization: Therapy Orders & Screens 08/18/23 07:25 EKG ROUTINE Comment: Diagnosis: elevated troponin 08/18/23 15:06 Oxygen NASAL CANNULA 2 lpm Comment: Diagnosis: elevated troponin Discharge Exam General Appearance: no apparent distress, alert Neurologic Exam: alert, oriented x 3, cooperative, normal mood/affect, nml cerebellar function, sensation nml, No motor deficits Eye Exam: PERRL, EOMI, eyes nml inspection Ears, Nose, Throat Exam: normal ENT inspection, pharynx normal, moist mucous membranes Neck Exam: normal inspection, non-tender, supple, full range of motion Respiratory Exam: normal breath sounds, lungs clear, No respiratory distress Cardiovascular Exam: regular rate/rhythm, normal heart sounds Gastrointestinal/Abdomen Exam: soft, No tenderness, No mass Pelvic Exam: deferred Rectal Exam: deferred Back Exam: normal inspection, normal range of motion, No CVA tenderness, No vertebral tenderness Extremity Exam: normal inspection, normal range of motion Skin Exam: normal color, warm, dry Final Diagnosis/Problem List - Final Discharge Diagnosis/Problem (1) Anemia Current Visit: Yes Status: Acute Assessment & Plan: - Hgb 7.9 Code(s): D64.9 - ANEMIA, UNSPECIFIED (2) CAD (coronary artery disease) Current Visit: Yes Status: Acute Assessment & Plan: - Echo - tele - F/u with cardiology Code(s): I25.10 - ATHSCL HEART DISEASE OF [place] CORONARY ARTERY W/O ANG PCTRS (3) CKD (chronic kidney disease) Current Visit: Yes Status: Acute Assessment & Plan: - F/U with nephrology Code(s): N18.9 - CHRONIC KIDNEY DISEASE, UNSPECIFIED (4) Elevated troponin Current Visit: Yes Status: Acute Assessment & Plan: -Trop 0.060, 0.079, 0.093 - cardiology consult - no Cp since yesterday - pt has an appointment with cardiology today- request to d/c today - Imdur increased by cardiology Code(s): R79.89 - OTHER SPECIFIED ABNORMAL FINDINGS OF BLOOD CHEMISTRY (5) Essential (primary) hypertension Current Visit: Yes Status: Acute Assessment & Plan: - BP stable -Continue home meds Code(s): I10 - ESSENTIAL (PRIMARY) HYPERTENSION (6) Breast cancer Current Visit: Yes Status: Acute Assessment & Plan: - stage 3 with chemo and radiation, right breast - F/U OP with oncology as scheduled (7) Leukocytosis Current Visit: Yes Status: Acute Assessment & Plan: - improved but still elevated. - r/t cancer/ chemo? - F/U with PCP this week for f/u care Code(s): D72.829 - ELEVATED WHITE BLOOD CELL COUNT, UNSPECIFIED - Discharge Discharge Date: 08/19/23 Disposition: Home, Self-Care Condition: Stable Prescriptions: New Isosorbide Mononitrate 60 mg [Imdur 60MG] 60 mg PO DAILY 30 Days #30 tablet Continue Spironolactone 25 mg PO BID Paricalcitol [Zemplar] 1 mcg PO DAILY Tolterodine Tartrate [Detrol LA] 4 mg PO DAILY Fluoxetine HCl 20 mg PO DAILY Clopidogrel Bisulfate [PLAVIX Tablet] 75 mg PO DAILY Aspirin [Aspirin EC] 81 mg PO DAILY Furosemide 20 mg [Lasix 20 mg] 20 mg PO DAILY Atorvastatin Calcium [Lipitor] 80 mg PO HS Lansoprazole 30 mg PO DAILY Amlodipine Besylate 5 mg PO DAILY Allopurinol 300 mg [Zyloprim 300 mg] 300 mg PO DAILY Ezetimibe 10 mg [Zetia 10 MG] 10 mg PO HS Gabapentin [Neurontin ] 100 mg PO DAILY Metoprolol Tartrate 25 mg [Lopressor 25MG Tab] 25 mg PO DAILY Febuxostat [Uloric] 80 mg PO DAILY Ranolazine 500 MG [Ranexa 500 MG] 500 mg PO BID Discontinued Isosorbide Mononitrate 30 mg [Imdur 30 MG] 30 mg PO DAILY Additional Instructions: Please make appointment with PCP this week. Follow up with cardiology today. Follow up with: CHERYL ANGELA MD [Primary Care Provider] -
[2023-08-19 07:56] VITALS: TEMP 97.3
[2023-08-19 08:17] VITALS: RESP 26
[2023-08-19 08:24] VITALS: PULSE 67
[2023-08-19] MEDS ORDERED: Imdur 60MG PO SCH (10:00)
[2023-08-19] MEDS ORDERED: ZYLOPRIM 300 MG PO SCH (10:00)
== END 2023-08-19 08:40 | disposition home or self-care (01) ==
LOC: ED 01:05 → MED SURG 05:18 → ICU 11:15
PROVIDERS: ADMIT Internal Medicine; ATTEND Internal Medicine
DX: D64.9 Anemia, unspecified (principal); I25.10 Atherosclerotic heart disease of native coronary artery without angina pectoris; I13.0 Hypertensive heart and chronic kidney disease with heart failure and stage 1 through stage 4 chronic kidney disease, or unspecified chronic kidney disease; N18.9 Chronic kidney disease, unspecified; I50.9 Heart failure, unspecified; R79.89 Other specified abnormal findings of blood chemistry; C50.919 Malignant neoplasm of unspecified site of unspecified female breast; D72.829 Elevated white blood cell count, unspecified; E78.5 Hyperlipidemia, unspecified; I25.2 Old myocardial infarction; Z79.01 Long term (current) use of anticoagulants; Z79.899 Other long term (current) drug therapy; Z20.828 Contact with and (suspected) exposure to other viral communicable diseases
CPT/HCPCS: 36415; 71045; 78582; 80048; 80053; 80061; 83605; 83721; 83880; 84443; 84484; 85014; 85018; 85025; 85027; 85379; 85610; 85730; 93005; 93268; 99285; A9540; A9567; G0378; Q3014; J1644; A9270-GY

== ENCOUNTER 2024-07-19 09:08 | Day surgery (SDC) | payer MEDICARE, OTHER ==
--- NOTE | 2024-07-19 09:21 | HP ---
HISTORY OF PRESENT ILLNESS: The patient had prior history of breast cancer, no longer using her port for treatment, desires removal. PAST MEDICAL HISTORY: Breast cancer, hypertension, heart disease, reflux, gout, hyperlipidemia. HOME MEDICATIONS: Tolterodine, ranolazine, oxycodone, Norvasc, Nitrostat p.r.n., lansoprazole, isosorbide mononitrate, hydralazine, gabapentin, furosemide, febuxostat, vitamin D3, Eliquis, atorvastatin, aspirin, anastrozole, allopurinol. ALLERGIES: OxyContin, penicillin. PAST SURGICAL HISTORY: She had a CABG and mastectomy in the past, appendectomy, port placed in the past, knee arthroplasty, hysterectomy. SOCIAL HISTORY: No smoking or alcohol abuse. FAMILY HISTORY: Heart disease. REVIEW OF SYSTEMS: Twelve systems reviewed. Pertinent for medical problems noted above. PHYSICAL EXAMINATION: GENERAL: Height 5 feet 2 inches. BMI 30.7. No acute distress. HEENT: Sclerae nonicteric. Extraocular movements intact. NECK: No JVD. CHEST: Equal excursion, nonlabored breathing. CARDIOVASCULAR: Regular rate and rhythm. ABDOMEN: Soft. SKIN: Dry. NEUROLOGIC: Alert and oriented. Moving all extremities symmetrically. PSYCHIATRIC: Appropriate mood and affect. IMPRESSION: Undesired port. Recommend removal, is no longer using it for treatment. Risks of bleeding, infection; risk of aches and pain, burning, or numbness; risk of hematoma or seroma formation, possible need for packing; risk of anesthesia, DVT, PE, pneumonia, not limited to. Risk of failure of the catheter to be free possibly requiring tying off the catheter and just removing the port. Otherwise, continue medications for heart disease, reflux, gout, breast cancer, hypertension, hyperlipidemia. Patient will proceed with outpatient MAC and removal of tunneled port catheter as an outpatient.
[2024-07-19] MEDS ORDERED: Lactated Ringers 1,000 ML IV SCH (09:30)
[2024-07-19 09:39] LABS: Absolute Neutrophil Ct (ANC) 4.01 x10^3/uL (1.56-6.13); BASOPHIL % 0.4 % (0.1-1.2); Basophil (Absolute #) 0.02 x10^3/uL (0.01-0.08); Eosinophil % 4.4 % (0.7-5.8); Eosinophil (Absolute #) 0.25 x10^3/uL (0.04-0.36); Hematocrit 29.4 % (34.1-44.9); Hemoglobin 9.5 g/dL (11.2-15.7); IMMATURE GRAN # 0.05 x10^3u/L (0.001-0.031); IMMATURE GRAN % 0.9 % (0.001-0.429); Lymphocyte (Absolute #) 0.75 x10^3/uL (1.18-3.74); Lymphocytes % 13.2 % (19.3-51.7); Mean Cell Volume 97.7 fL (79.4-94.8); Mean Corpuscular Hemoglobin 31.6 pg (25.6-32.2); Mean Corpuscular Hgb Concent. 32.3 g/dL (32.2-35.5); Mean Platelet Volume 10.2 fL (9.4-12.3); Monocytes % 10.6 % (4.7-12.5); Neutrophil % 70.5 % (34.0-71.1); Platelet Count 275 x10^3/uL (182-369); Red Blood Count 3.01 x10^6/uL (3.93-5.22); Red Cell Distribution Width 15.5 % (11.7-14.4); White Blood Count 5.7 x10^3/uL (3.98-10.04)
[2024-07-19 09:56] LABS: ANION GAP 13.8 MEQ/L (5-15); Calcium 9.1 mg/dL (8.4-10.2); Creatinine 1 2.5 mg/dL (0.52-1.04); EST GLOMERULAR FILTRATION RATE 19.7 ML/MIN; Potassium 3.8 mmol/L (3.5-5.1)
[2024-07-19] MEDS ORDERED: Sensorcaine 0.25% 10 ML ONE (10:55)
[2024-07-19] MEDS ORDERED: XYLOCAINE 1% HCL 20 ML MDV ONE (10:55)
[2024-07-19] MEDS ORDERED: propofoL IV ONE (11:47)
[2024-07-19] MEDS ORDERED: Xylocaine-Mpf 2% 5 Ml Vial ONE (11:47)
[2024-07-19] MEDS ORDERED: SUBLIMAZE 100 MCG/2 ML ONE (11:47)
[2024-07-19] MEDS ORDERED: KEFZOL 1 GM ONE (11:53)
[2024-07-19 12:43] VITALS: RESP 18
[2024-07-19 12:53] VITALS: BP 92/65; PULSE 65; TEMP 97.9; O2SAT 96
--- NOTE | 2024-07-20 18:15 | OP ---
SURGERY DATE/TIME: 07/19/2024 [id number] PREOPERATIVE DIAGNOSIS: History of breast cancer, no longer using Port-A-Cath, undesired Port-A-Cath. POSTOPERATIVE DIAGNOSIS: History of breast cancer, no longer using Port-A-Cath, undesired Port-A-Cath. PROCEDURE: Removal of tunneled Port-A-Cath. SURGEON: Rios Valera MD ANESTHESIA: Lidocaine 1% local with MAC anesthesia. ESTIMATED BLOOD LOSS: Minimal. INDICATIONS: Consent was obtained. DESCRIPTION OF PROCEDURE AND FINDINGS: The patient was taken to the operating room, prepped and draped in usual sterile fashion under MAC anesthesia. After official time-out, no disagreement in planned procedure, 1% lidocaine local was infiltrated in and around the old scar. Dissection carried down through the scar. The port's Prolene sutures were freed and removed. The port was mobilized upward, and the port and catheter were removed intact and then passed off. The tunnel tract and port pocket closed with 3-0 Vicryl. Skin closed with 4-0 Vicryl in running subcuticular fashion. Steri-Strips and sterile dressing applied. The patient tolerated the procedure well. There were no immediate complications. Findings were discussed with the family out in the waiting area.
== END 2024-07-19 13:00 | disposition home or self-care (01) ==
LOC: SDC 09:08
PROVIDERS: ATTEND Surgery
DX: Z45.2 Encounter for adjustment and management of vascular access device (principal); Z85.3 Personal history of malignant neoplasm of breast; I10 Essential (primary) hypertension
CPT/HCPCS: 36415; 80048; 85025; 93005; J0690; J2704; J3010